=== PATIENT | male | born 1975 | race Caucasian/White ===

== ENCOUNTER 2017-11-06 10:01 | Inpatient (IN) | payer MEDICAID ==
[~2017-11-06] VITALS: Ht 177.8 cm; Wt 79.8 kg
[~2017-11-06 10:01] MED LIST: MIRT15TA2 PO; PARO20TA24 PO; RISP4TAB3 PO; TRIH5TAB2 PO
[2017-11-06 10:16] VITALS: BP 145/60
[2017-11-06 13:54] VITALS: BP 128/62
[2017-11-06] MEDS: LORazepam 2 MG TABLET PO PRN (14:48)
[2017-11-06] MEDS ORDERED: ACETAMINOPHEN 325 MG TABLET PO PRN (15:15)
[2017-11-06] MEDS ORDERED: MAGNESIUM HYDROXIDE SUSPENSION 30 ML UDCUP PO PRN (15:15)
[2017-11-06] MEDS ORDERED: MAG HYDROX/AL HYDROX/SIMETH 30 ML SUSP UDCUP PO PRN (15:15)
[2017-11-06 16:05] VITALS: BP 118/73
[2017-11-07 00:20] VITALS: BP 125/65
[2017-11-07] MEDS: ZOLPIDEM TARTRATE 10 MG TABLET PO PRN (00:21)
[2017-11-07 08:07] VITALS: BP 110/74
[2017-11-07 08:41] LABS: BASOPHILS % (AUTO) 0.3 % (0.0-2.0); EOSINOPHILS % (AUTO) 0.6 % (1.0-6.0); HEMATOCRIT 44.1 % (41-53); HEMOGLOBIN 15.5 g/dL (13.5-17.5); LYMPHOCYTES # (AUTO) 1.5 K/uL (1.0-4.8); LYMPHOCYTES % (AUTO) 14.3 % (22.0-44.0); MEAN CORPUSCULAR HEMOGLOBIN 31.4 pg (26.0-34.0); MEAN CORPUSCULAR VOLUME 90 fL (80-100); MONOCYTES # (AUTO) 0.4 K/uL (0.1-1.0); MONOCYTES % (AUTO) 3.5 % (2.0-9.0); NEUTROPHILS # (AUTO) 8.7 K/uL (1.8-7.7); NEUTROPHILS % (AUTO) 81.3 % (40.0-70.0); PLATELET COUNT (AUTO) 217 K/uL (150-450); RED BLOOD CELL COUNT(AUTO) 4.93 MIL/uL (4.50-5.90); RED CELL DISTRIBUTION WIDTH 14.1 % (11.5-14.5)
[2017-11-07 08:53] LABS: HEMOGLOBIN A1C 5.6 % (4.5-6.2)
[2017-11-07] MEDS ORDERED: VENLAFAXINE HCL 75 MG ER CAPSULE PO SCH (09:00)
[2017-11-07 09:16] LABS: ALANINE AMINOTRANSFERASE 32 U/L (12-78); ALKALINE PHOSPHATASE 67 U/L (46-116); ANION GAP 6 mmol/L (8-16); ASPARTATE AMINOTRANSFERASE 19 U/L (15-37); BILIRUBIN,TOTAL 0.5 mg/dL (0.1-1.0); CALCIUM, TOTAL 9.3 mg/dL (8.8-10.5); CARBON DIOXIDE 31 mmol/L (22-29); CHLORIDE 102 mmol/L (98-107); CHOL/HDL RATIO 4.6 (4.2-7.3); CHOLESTEROL 228 mg/dL (131-200); CREATININE 0.98 mg/dL (0.60-1.30); FREE T4 (FREE THYROXINE) 0.84 ng/dL (0.76-1.46); GLOMERULAR FILTR. RATE CALC > 60 mL/min (>60); GLUCOSE,RANDOM 111 mg/dL (70-110); HDL CHOLESTEROL 50 mg/dL (40-60); LDL CHOL (CALC.) 150 mg/dL (0-130); POTASSIUM 3.7 mmol/L (3.5-5.1); SODIUM SERUM 139 mmol/L (136-145); THYROID STIMULATING HORMONE 1.39 uIU/mL (0.36-3.74); TOTAL PROTEIN, SERUM 7.7 g/dL (6.4-8.2); TRIGLYCERIDES 138 mg/dL (15-150); UREA NITROGEN, BLOOD 14 mg/dL (7-18)
[2017-11-07] MEDS ORDERED: ONDANSETRON HCL 4 MG TABLET PO PRN (10:15)
[2017-11-07] MEDS ORDERED: ACETAMINOPHEN 325 MG TABLET PO PRN (10:15)
[2017-11-07] MEDS ORDERED: LOPERAMIDE HCL 2 MG CAPSULE PO PRN (10:15)
[2017-11-07] MEDS ORDERED: MAGNESIUM HYDROXIDE SUSPENSION 30 ML UDCUP PO PRN (10:15)
[2017-11-07] MEDS ORDERED: ALBUTEROL SULFATE HFA 90 MCG/PUFF 8 GM INHALER IH PRN (10:15)
[2017-11-07] MEDS ORDERED: PETROLATUM,WHITE 71 GM JELLY TP PRN (10:15)
[2017-11-07] MEDS ORDERED: IBUPROFEN 400 MG TABLET PO PRN (10:15)
[2017-11-07] MEDS ORDERED: CloNIDine HCL 0.1 MG TABLET PO PRN (10:15)
[2017-11-07] MEDS ORDERED: MAG HYDROX/AL HYDROX/SIMETH ES 30 ML SUSPENSION UDCUP PO PRN (10:15)
[2017-11-07] MEDS ORDERED: DOCUSATE SODIUM 100 MG CAPSULE PO PRN (10:15)
[2017-11-07] MEDS: MULTIVITAMINS, THERAPEUTIC TABLET PO SCH (12:14)
[2017-11-07 16:16] VITALS: BP 112/78
[2017-11-07] MEDS: LORazepam 2 MG TABLET PO PRN (16:16)
[2017-11-08 05:36] VITALS: BP 120/77
[2017-11-08 08:07] LABS: BASOPHILS % (AUTO) 0.6 % (0.0-2.0); EOSINOPHILS % (AUTO) 1.3 % (1.0-6.0); HEMATOCRIT 41.6 % (41-53); HEMOGLOBIN 14.6 g/dL (13.5-17.5); LYMPHOCYTES # (AUTO) 1.1 K/uL (1.0-4.8); MEAN CORPUSCULAR HEMOGLOBIN 31.5 pg (26.0-34.0); MEAN CORPUSCULAR HGB CONC 35.1 G/dL (31.0-37.0); MEAN CORPUSCULAR VOLUME 90 fL (80-100); MONOCYTES # (AUTO) 0.7 K/uL (0.1-1.0); MONOCYTES % (AUTO) 9.8 % (2.0-9.0); NEUTROPHILS # (AUTO) 5.4 K/uL (1.8-7.7); NEUTROPHILS % (AUTO) 73.3 % (40.0-70.0); PLATELET COUNT (AUTO) 188 K/uL (150-450); RED BLOOD CELL COUNT(AUTO) 4.64 MIL/uL (4.50-5.90); RED CELL DISTRIBUTION WIDTH 13.9 % (11.5-14.5)
[2017-11-08] MEDS: MULTIVITAMINS, THERAPEUTIC TABLET PO SCH (08:27)
[2017-11-08] MEDS: VENLAFAXINE HCL 150 MG ER CAPSULE PO SCH (08:27)
[2017-11-08] MEDS: NICOTINE 14 MG/24 HOUR PATCH TD SCH ×2 (08:27→14:10)
[2017-11-08 08:29] LABS: HEMOGLOBIN A1C 5.9 % (4.5-6.2)
[2017-11-08 08:37] LABS: ALANINE AMINOTRANSFERASE 29 U/L (12-78); ALBUMIN 3.7 g/dL (3.4-5.0); ALKALINE PHOSPHATASE 65 U/L (46-116); ANION GAP 8 mmol/L (8-16); ASPARTATE AMINOTRANSFERASE 16 U/L (15-37); BILIRUBIN,TOTAL 0.5 mg/dL (0.1-1.0); CALCIUM, TOTAL 8.9 mg/dL (8.8-10.5); CARBON DIOXIDE 27 mmol/L (22-29); CHLORIDE 101 mmol/L (98-107); CHOL/HDL RATIO 4.4 (4.2-7.3); CHOLESTEROL 199 mg/dL (131-200); CREATININE 0.98 mg/dL (0.60-1.30); GLOMERULAR FILTR. RATE CALC > 60 mL/min (>60); GLUCOSE,RANDOM 92 mg/dL (70-110); HDL CHOLESTEROL 45 mg/dL (40-60); LDL CHOL (CALC.) 132 mg/dL (0-130); POTASSIUM 3.7 mmol/L (3.5-5.1); SODIUM SERUM 136 mmol/L (136-145); TOTAL PROTEIN, SERUM 7.1 g/dL (6.4-8.2); TRIGLYCERIDES 109 mg/dL (15-150); UREA NITROGEN, BLOOD 16 mg/dL (7-18)
[2017-11-08] MEDS: LORazepam 2 MG TABLET PO PRN ×2 (08:43→18:08)
[2017-11-08 08:45] VITALS: BP 122/78
[2017-11-08 16:06] VITALS: BP 121/74
[2017-11-09 06:02] VITALS: BP 115/66
[2017-11-09] MEDS: MULTIVITAMINS, THERAPEUTIC TABLET PO SCH (08:34)
[2017-11-09] MEDS: VENLAFAXINE HCL 150 MG ER CAPSULE PO SCH (08:34)
[2017-11-09] MEDS: NICOTINE 14 MG/24 HOUR PATCH TD SCH (08:35)
[2017-11-09 08:45] VITALS: BP 123/80
[2017-11-09 16:03] VITALS: BP 116/72
[2017-11-09] MEDS: LORazepam 2 MG TABLET PO PRN (16:10)
[2017-11-09] MEDS: ZOLPIDEM TARTRATE 10 MG TABLET PO PRN (22:04)
[2017-11-10 03:51] VITALS: BP 121/65
[2017-11-10] MEDS: NICOTINE 14 MG/24 HOUR PATCH TD SCH (09:00)
[2017-11-10] MEDS ORDERED: BuPROPion HCL 75 MG TABLET PO SCH (09:00)
[2017-11-10] MEDS ORDERED: BuPROPion HCL XL 150 MG ER TABLET PO SCH (09:00)
[2017-11-10 09:11] VITALS: BP 119/68
[2017-11-10] MEDS: MULTIVITAMINS, THERAPEUTIC TABLET PO SCH (09:12)
[2017-11-10] MEDS: VENLAFAXINE HCL 150 MG ER CAPSULE PO SCH (09:12)
[2017-11-10] MEDS: LORazepam 2 MG TABLET PO PRN (14:03)
[2017-11-10 16:31] VITALS: BP 115/76
[2017-11-11] MEDS: ZOLPIDEM TARTRATE 10 MG TABLET PO PRN (00:17)
[2017-11-11 01:09] VITALS: BP 121/79
[2017-11-11 08:07] VITALS: BP 123/76
[2017-11-11] MEDS: MULTIVITAMINS, THERAPEUTIC TABLET PO SCH (08:44)
[2017-11-11] MEDS: BuPROPion HCL XL 150 MG ER TABLET PO SCH (08:44)
[2017-11-11] MEDS: VENLAFAXINE HCL 150 MG ER CAPSULE PO SCH (08:44)
[2017-11-11] MEDS: NICOTINE 14 MG/24 HOUR PATCH TD SCH (08:48)
[2017-11-11] MEDS: LORazepam 2 MG TABLET PO PRN (15:52)
[2017-11-11 16:04] VITALS: BP 120/78
[2017-11-12 06:25] VITALS: BP 117/84
[2017-11-12 08:16] VITALS: BP 124/72
[2017-11-12] MEDS: NICOTINE 14 MG/24 HOUR PATCH TD SCH (09:00)
[2017-11-12] MEDS: MULTIVITAMINS, THERAPEUTIC TABLET PO SCH (09:21)
[2017-11-12] MEDS: VENLAFAXINE HCL 75 MG ER CAPSULE PO SCH (09:21)
[2017-11-12] MEDS: BuPROPion HCL XL 150 MG ER TABLET PO SCH (09:22)
[2017-11-12 16:35] VITALS: BP 117/73
[2017-11-12] MEDS: LORazepam 2 MG TABLET PO PRN (16:59)
[2017-11-13 05:39] VITALS: BP 121/95
[2017-11-13 08:30] VITALS: BP 120/78
[2017-11-13] MEDS ORDERED: VENL-67 PO (08:38)
[2017-11-13] MEDS ORDERED: BUPR-93 PO (08:39)
[2017-11-13] MEDS: VENLAFAXINE HCL 75 MG ER CAPSULE PO SCH (08:57)
[2017-11-13] MEDS: BuPROPion HCL XL 150 MG ER TABLET PO SCH (08:57)
[2017-11-13] MEDS: MULTIVITAMINS, THERAPEUTIC TABLET PO SCH (08:57)
[2017-11-13] MEDS: NICOTINE 14 MG/24 HOUR PATCH TD SCH (08:58)
== END 2017-11-13 10:48 | disposition home or self-care (01) | DRG 751 ==
LOC: B2S 10:57
PROVIDERS: ADMIT Psychiatry & Neurology Psychiatry; ATTEND Psychiatry & Neurology Psychiatry
DX: F33.2 Major depressive disorder, recurrent severe without psychotic features (principal); F20.9 Schizophrenia, unspecified; R45.851 Suicidal ideations; F10.10 Alcohol abuse, uncomplicated; B19.20 Unspecified viral hepatitis C without hepatic coma; E78.5 Hyperlipidemia, unspecified; Z91.19 Patient's noncompliance with other medical treatment and regimen; Z91.5 Personal history of self-harm
CPT/HCPCS: 80074; 83036; 84439; 84443; 86804

== ENCOUNTER 2019-06-01 16:09 | Inpatient (IN) | payer MEDICARE, MEDICAID ==
[~2019-06-01] VITALS: Ht 177.8 cm; Wt 83.9 kg
[~2019-06-01 16:09] MED LIST changes: +BUPR-93 PO; -MIRT15TA2 PO; -PARO20TA24 PO; -RISP4TAB3 PO; -TRIH5TAB2 PO; +VENL-67 PO
[2019-06-01] MEDS ORDERED: TRAZ-252 PO (16:13)
[2019-06-01] MEDS ORDERED: LOPERAMIDE HCL 2 MG CAPSULE PO PRN (16:30)
[2019-06-01] MEDS ORDERED: MAGNESIUM HYDROXIDE SUSPENSION 30 ML UDCUP PO PRN (16:30)
[2019-06-01] MEDS ORDERED: TUBERCULIN, PURIFIED PROTEIN DERIVATIVE 5 TU/0.1 ML SYRINGE ID ONE (16:30)
[2019-06-01] MEDS ORDERED: ZOLPIDEM TARTRATE 10 MG TABLET PO PRN (16:30)
[2019-06-01] MEDS ORDERED: LURASIDONE HCL 40 MG TABLET PO PRN (16:30)
[2019-06-01] MEDS ORDERED: HydrOXYzine PAMOATE 50 MG CAPSULE PO PRN (16:30)
[2019-06-01] MEDS ORDERED: PROMETHAZINE HCL 25 MG TABLET PO PRN (16:30)
[2019-06-01] MEDS ORDERED: INFLUENZA VIRUS VACCINE QVS 2019-20 (3YR+)/PF 60 MCG/0.5 ML SYRINGE IM ONE (16:45)
[2019-06-01 16:52] VITALS: BP 123/68
[2019-06-01] MEDS ORDERED: PNEUMOCOCCAL VACCINE POLYVALENT 0.5 ML VIAL [PPSV23] IM ONE (18:15)
[2019-06-01] MEDS: THIAMINE HCL 100 MG TABLET PO SCH (18:55)
[2019-06-01 19:56] VITALS: BP 96/70
[2019-06-01] MEDS ORDERED: TraZODone HCL 50 MG TABLET PO SCH (21:00)
[2019-06-01] MEDS ORDERED: MIRTAZAPINE 15 MG TABLET PO SCH (21:00)
[2019-06-01] MEDS: LURASIDONE HCL 40 MG TABLET PO SCH (21:34)
[2019-06-02 07:58] LABS: BASOPHILS % (AUTO) 0.6 % (0.0-2.0); EOSINOPHILS % (AUTO) 3.9 % (1.0-6.0); HEMATOCRIT 38.7 % (41-53); HEMOGLOBIN 13.2 g/dL (13.5-17.5); LYMPHOCYTES # (AUTO) 2.1 K/uL (1.0-4.8); LYMPHOCYTES % (AUTO) 30.8 % (22.0-44.0); MEAN CORPUSCULAR HEMOGLOBIN 30.4 pg (26.0-34.0); MEAN CORPUSCULAR HGB CONC 34.2 G/dL (31.0-37.0); MEAN CORPUSCULAR VOLUME 89 fL (80-100); MONOCYTES # (AUTO) 0.6 K/uL (0.1-1.0); MONOCYTES % (AUTO) 8.6 % (2.0-9.0); NEUTROPHILS # (AUTO) 3.8 K/uL (1.8-7.7); NEUTROPHILS % (AUTO) 56.1 % (40.0-70.0); PLATELET COUNT (AUTO) 189 K/uL (150-450); RED BLOOD CELL COUNT(AUTO) 4.35 MIL/uL (4.50-5.90); RED CELL DISTRIBUTION WIDTH 14.3 % (11.5-14.5)
[2019-06-02 08:25] VITALS: BP 116/63
[2019-06-02] MEDS: MULTIVITAMINS WITH MINERALS, THERAPEUTIC TABLET PO SCH (08:36)
[2019-06-02] MEDS: FOLIC ACID 1 MG TABLET PO SCH (08:36)
[2019-06-02] MEDS: THIAMINE HCL 100 MG TABLET PO SCH ×2 (08:36→16:38)
[2019-06-02 08:58] LABS: ALANINE AMINOTRANSFERASE 27 U/L (12-78); ALBUMIN 3.8 g/dL (3.4-5.0); ALKALINE PHOSPHATASE 81 U/L (46-116); ANION GAP 6 mmol/L (8-16); ASPARTATE AMINOTRANSFERASE 19 U/L (15-37); BILIRUBIN,TOTAL 0.3 mg/dL (0.1-1.0); CALCIUM, TOTAL 9.1 mg/dL (8.8-10.5); CARBON DIOXIDE 30 mmol/L (22-29); CHLORIDE 108 mmol/L (98-107); CHOL/HDL RATIO 5.5 (4.2-7.3); CHOLESTEROL 171 mg/dL (131-200); CREATININE 1.11 mg/dL (0.60-1.30); FREE T4 (FREE THYROXINE) 0.78 ng/dL (0.76-1.46); GLOMERULAR FILTR. RATE CALC > 60 mL/min (>60); GLUCOSE,RANDOM 85 mg/dL (70-110); HDL CHOLESTEROL 31 mg/dL (40-60); LDL CHOL (CALC.) 119 mg/dL (0-130); POTASSIUM 4.1 mmol/L (3.5-5.1); SODIUM SERUM 144 mmol/L (136-145); THYROID STIMULATING HORMONE 1.81 uIU/mL (0.36-3.74); TRIGLYCERIDES 107 mg/dL (15-150); UREA NITROGEN, BLOOD 10 mg/dL (7-18)
[2019-06-02] MEDS ORDERED: PETROLATUM,WHITE 28 GM JELLY TP PRN (09:45)
[2019-06-02 16:15] VITALS: BP 114/64
[2019-06-02] MEDS: MIRTAZAPINE 30 MG TABLET PO SCH (20:36)
[2019-06-02] MEDS: LURASIDONE HCL 40 MG TABLET PO SCH (20:37)
[2019-06-02] MEDS ORDERED: TraZODone HCL 100 MG TABLET PO SCH (21:00)
[2019-06-03 01:33] VITALS: BP 92/51
[2019-06-03 08:24] VITALS: BP 107/64
[2019-06-03] MEDS: THIAMINE HCL 100 MG TABLET PO SCH ×2 (08:33→16:53)
[2019-06-03] MEDS: MULTIVITAMINS WITH MINERALS, THERAPEUTIC TABLET PO SCH (08:33)
[2019-06-03] MEDS: FOLIC ACID 1 MG TABLET PO SCH (08:33)
[2019-06-03 16:10] VITALS: BP 112/78
[2019-06-03] MEDS: TraZODone HCL 100 MG TABLET PO SCH (20:44)
[2019-06-03] MEDS: MIRTAZAPINE 30 MG TABLET PO SCH (20:44)
[2019-06-03] MEDS: LURASIDONE HCL 40 MG TABLET PO SCH (20:44)
[2019-06-04 05:19] VITALS: BP 100/60
[2019-06-04 08:16] VITALS: BP 105/65
[2019-06-04] MEDS: MULTIVITAMINS WITH MINERALS, THERAPEUTIC TABLET PO SCH (08:41)
[2019-06-04] MEDS: FOLIC ACID 1 MG TABLET PO SCH (08:41)
[2019-06-04] MEDS: THIAMINE HCL 100 MG TABLET PO SCH ×2 (08:41→16:18)
[2019-06-04 16:13] VITALS: BP 117/71
[2019-06-04] MEDS: TraZODone HCL 100 MG TABLET PO SCH (20:02)
[2019-06-04] MEDS: LURASIDONE HCL 40 MG TABLET PO SCH (20:02)
[2019-06-04] MEDS: MIRTAZAPINE 30 MG TABLET PO SCH (20:02)
[2019-06-05] MEDS: MAG HYDROX/AL HYDROX/SIMETH ES 30 ML SUSPENSION UDCUP PO PRN (06:18)
[2019-06-05 06:19] VITALS: BP 111/72
[2019-06-05 08:23] VITALS: BP 100/63
[2019-06-05] MEDS: THIAMINE HCL 100 MG TABLET PO SCH ×2 (08:28→16:42)
[2019-06-05] MEDS: FOLIC ACID 1 MG TABLET PO SCH (08:28)
[2019-06-05] MEDS: MULTIVITAMINS WITH MINERALS, THERAPEUTIC TABLET PO SCH (08:28)
[2019-06-05] MEDS: GuaiFENesin/D-METHORPHAN [SUGAR-FREE] 200-20MG/10 ML SYRUP UDCUP PO PRN ×2 (09:44→20:15)
[2019-06-05 16:45] VITALS: BP 117/64
[2019-06-05] MEDS: TraZODone HCL 100 MG TABLET PO SCH (20:29)
[2019-06-05] MEDS: MIRTAZAPINE 30 MG TABLET PO SCH (20:29)
[2019-06-05] MEDS: LURASIDONE HCL 40 MG TABLET PO SCH (20:30)
[2019-06-06 00:30] VITALS: BP 101/41
[2019-06-06 00:57] VITALS: BP 101/70
[2019-06-06] MEDS: ACETAMINOPHEN 325 MG TABLET PO PRN ×3 (01:01→15:12)
[2019-06-06 08:16] VITALS: BP 119/66
[2019-06-06] MEDS: MULTIVITAMINS WITH MINERALS, THERAPEUTIC TABLET PO SCH (09:03)
[2019-06-06] MEDS: THIAMINE HCL 100 MG TABLET PO SCH ×2 (09:03→21:19)
[2019-06-06] MEDS: FOLIC ACID 1 MG TABLET PO SCH (09:03)
[2019-06-06] MEDS: GuaiFENesin/D-METHORPHAN [SUGAR-FREE] 200-20MG/10 ML SYRUP UDCUP PO PRN (13:22)
[2019-06-06 15:30] VITALS: BP 128/75
[2019-06-06 20:06] VITALS: BP 115/72
[2019-06-06] MEDS: GuaiFENesin SR 600 MG ER TABLET PO SCH (21:10)
[2019-06-06] MEDS: TraZODone HCL 100 MG TABLET PO SCH (21:10)
[2019-06-06] MEDS: LURASIDONE HCL 40 MG TABLET PO SCH (21:11)
[2019-06-06] MEDS: MIRTAZAPINE 30 MG TABLET PO SCH (21:12)
[2019-06-07 08:15] LABS: AMPHET/METH SCREEN,URINE NEGATIVE (NEGATIVE); BARBITURATE SCREEN, URINE NEGATIVE (NEGATIVE); BENZODIAZEPINES SCREEN,URINE NEGATIVE (NEGATIVE); CANNABINOID SCREEN,URINE NEGATIVE (NEGATIVE); COCAINE SCREEN,URINE NEGATIVE (NEGATIVE); METHADONE SCREEN, URINE NEGATIVE (NEGATIVE); OPIATE SCREEN,URINE NEGATIVE (NEGATIVE)
[2019-06-07 08:16] LABS: PHENCYCLIDINE SCREEN,URINE NEGATIVE (NEGATIVE)
[2019-06-07 08:19] LABS: APPEARANCE,URINE CLEAR (CLEAR); BILIRUBIN,URINE NEGATIVE (NEGATIVE); GLUCOSE, URINE (UA) NEGATIVE (NEGATIVE); KETONES,URINE NEGATIVE (NEGATIVE); LEUKOCYTE ESTERASE ,URINE NEGATIVE (NEGATIVE); NITRATE,URINE NEGATIVE (NEGATIVE); OCCULT BLOOD,URINE NEGATIVE (NEGATIVE); PROTEIN,URINE NEGATIVE (NEGATIVE); UROBILINOGEN,URINE 0.2 mg/dL (<=1.0)
[2019-06-07] MEDS: THIAMINE HCL 100 MG TABLET PO SCH ×2 (08:38→16:06)
[2019-06-07] MEDS: GuaiFENesin SR 600 MG ER TABLET PO SCH ×3 (08:38→16:06)
[2019-06-07] MEDS: OSELTAMIVIR PHOSPHATE 75 MG CAPSULE PO SCH ×2 (08:38→16:06)
[2019-06-07] MEDS: FOLIC ACID 1 MG TABLET PO SCH (08:38)
[2019-06-07] MEDS: MULTIVITAMINS WITH MINERALS, THERAPEUTIC TABLET PO SCH (08:39)
[2019-06-07 09:23] VITALS: BP 112/62
[2019-06-07 17:47] VITALS: BP 106/62
[2019-06-07] MEDS: TraZODone HCL 100 MG TABLET PO SCH (20:33)
[2019-06-07] MEDS ORDERED: LURASIDONE HCL 40 MG TABLET PO SCH (21:00)
[2019-06-07] MEDS ORDERED: MIRTAZAPINE 30 MG TABLET PO SCH (21:00)
[2019-06-08] MEDS: FOLIC ACID 1 MG TABLET PO SCH (08:51)
[2019-06-08] MEDS: THIAMINE HCL 100 MG TABLET PO SCH ×2 (08:52→17:20)
[2019-06-08] MEDS: MULTIVITAMINS WITH MINERALS, THERAPEUTIC TABLET PO SCH (08:52)
[2019-06-08] MEDS: OSELTAMIVIR PHOSPHATE 75 MG CAPSULE PO SCH ×2 (08:52→17:20)
[2019-06-08] MEDS: GuaiFENesin SR 600 MG ER TABLET PO SCH ×3 (08:52→17:20)
[2019-06-08 09:21] VITALS: BP 144/88
[2019-06-08 17:00] VITALS: BP 103/64
[2019-06-08] MEDS: TraZODone HCL 100 MG TABLET PO SCH (20:57)
[2019-06-08] MEDS ORDERED: LURASIDONE HCL 40 MG TABLET PO SCH (21:00)
[2019-06-08] MEDS: MIRTAZAPINE 15 MG TABLET PO SCH (21:06)
[2019-06-09] MEDS: LORazepam 2 MG TABLET PO PRN (00:19)
[2019-06-09 01:16] VITALS: BP 108/70
[2019-06-09] MEDS: MULTIVITAMINS WITH MINERALS, THERAPEUTIC TABLET PO SCH (08:04)
[2019-06-09] MEDS: GuaiFENesin SR 600 MG ER TABLET PO SCH ×3 (08:04→16:50)
[2019-06-09] MEDS: THIAMINE HCL 100 MG TABLET PO SCH ×2 (08:04→16:50)
[2019-06-09] MEDS: FOLIC ACID 1 MG TABLET PO SCH (08:04)
[2019-06-09] MEDS: OSELTAMIVIR PHOSPHATE 75 MG CAPSULE PO SCH ×2 (08:04→16:50)
[2019-06-09 10:04] VITALS: BP 119/61
[2019-06-09 16:58] VITALS: BP 105/65
[2019-06-09] MEDS: TraZODone HCL 100 MG TABLET PO SCH (20:43)
[2019-06-09] MEDS: MIRTAZAPINE 15 MG TABLET PO SCH (20:44)
[2019-06-09] MEDS ORDERED: LURASIDONE HCL 40 MG TABLET PO SCH (21:00)
[2019-06-10] MEDS: MULTIVITAMINS WITH MINERALS, THERAPEUTIC TABLET PO SCH (08:35)
[2019-06-10] MEDS: FOLIC ACID 1 MG TABLET PO SCH (08:35)
[2019-06-10] MEDS: THIAMINE HCL 100 MG TABLET PO SCH ×2 (08:35→16:34)
[2019-06-10] MEDS: OSELTAMIVIR PHOSPHATE 75 MG CAPSULE PO SCH ×2 (08:35→16:34)
[2019-06-10 08:39] VITALS: BP 117/71
[2019-06-10 19:11] VITALS: BP 112/65
[2019-06-10] MEDS: MIRTAZAPINE 15 MG TABLET PO SCH (20:47)
[2019-06-10] MEDS: TraZODone HCL 100 MG TABLET PO SCH (20:47)
[2019-06-11] MEDS: MULTIVITAMINS WITH MINERALS, THERAPEUTIC TABLET PO SCH (08:47)
[2019-06-11] MEDS: FOLIC ACID 1 MG TABLET PO SCH (08:49)
[2019-06-11] MEDS: LURASIDONE HCL 40 MG TABLET PO SCH (08:49)
[2019-06-11] MEDS: OSELTAMIVIR PHOSPHATE 75 MG CAPSULE PO SCH ×2 (08:50→16:39)
[2019-06-11] MEDS: THIAMINE HCL 100 MG TABLET PO SCH (08:51)
[2019-06-11 09:55] VITALS: BP 117/72
[2019-06-11 17:22] VITALS: BP 106/69
[2019-06-11] MEDS: TraZODone HCL 100 MG TABLET PO SCH (20:19)
[2019-06-11] MEDS: MIRTAZAPINE 15 MG TABLET PO SCH (20:19)
[2019-06-12] MEDS: MULTIVITAMINS WITH MINERALS, THERAPEUTIC TABLET PO SCH (07:57)
[2019-06-12] MEDS: LURASIDONE HCL 40 MG TABLET PO SCH (07:58)
[2019-06-12 09:25] VITALS: BP 106/60
[2019-06-12 17:33] VITALS: BP 100/60
[2019-06-12] MEDS: TraZODone HCL 100 MG TABLET PO SCH (20:07)
[2019-06-12] MEDS: MIRTAZAPINE 15 MG TABLET PO SCH (20:08)
[2019-06-13] MEDS: LURASIDONE HCL 40 MG TABLET PO SCH (09:03)
[2019-06-13] MEDS: MULTIVITAMINS WITH MINERALS, THERAPEUTIC TABLET PO SCH (09:03)
[2019-06-13 11:24] VITALS: BP 110/65
[2019-06-13] MEDS: LORazepam 2 MG TABLET PO PRN (11:42)
[2019-06-13 18:17] VITALS: BP 110/71
[2019-06-13] MEDS: MIRTAZAPINE 15 MG TABLET PO SCH (20:28)
[2019-06-13] MEDS ORDERED: TraZODone HCL 150 MG TABLET PO SCH (21:00)
[2019-06-14] MEDS: MULTIVITAMINS WITH MINERALS, THERAPEUTIC TABLET PO SCH (08:19)
[2019-06-14 09:16] VITALS: BP 111/60
[2019-06-14] MEDS: MAG HYDROX/AL HYDROX/SIMETH ES 30 ML SUSPENSION UDCUP PO PRN (19:08)
[2019-06-14] MEDS: MIRTAZAPINE 15 MG TABLET PO SCH (20:18)
[2019-06-14] MEDS: TraZODone HCL 100 MG TABLET PO SCH (20:18)
[2019-06-14 21:54] VITALS: BP 98/59
[2019-06-15] MEDS: MULTIVITAMINS WITH MINERALS, THERAPEUTIC TABLET PO SCH (08:36)
[2019-06-15 09:14] VITALS: BP 106/58
[2019-06-15 16:52] VITALS: BP 132/70
[2019-06-15] MEDS: MIRTAZAPINE 15 MG TABLET PO SCH (20:12)
[2019-06-15] MEDS: TraZODone HCL 100 MG TABLET PO SCH (20:13)
[2019-06-16 08:00] VITALS: BP 122/64
[2019-06-16] MEDS: MULTIVITAMINS WITH MINERALS, THERAPEUTIC TABLET PO SCH (09:30)
[2019-06-16] MEDS: TraZODone HCL 100 MG TABLET PO SCH (20:12)
[2019-06-16] MEDS: MIRTAZAPINE 15 MG TABLET PO SCH (20:12)
[2019-06-16 20:43] VITALS: BP 113/68
[2019-06-17 08:23] VITALS: BP 105/67
[2019-06-17] MEDS: MULTIVITAMINS WITH MINERALS, THERAPEUTIC TABLET PO SCH (09:08)
[2019-06-17 16:58] VITALS: BP 107/60
[2019-06-17] MEDS: TraZODone HCL 100 MG TABLET PO SCH (20:13)
[2019-06-17] MEDS: MIRTAZAPINE 15 MG TABLET PO SCH (20:13)
[2019-06-18] MEDS: MULTIVITAMINS WITH MINERALS, THERAPEUTIC TABLET PO SCH (08:24)
[2019-06-18 09:56] VITALS: BP 121/74
[2019-06-18] MEDS: TraZODone HCL 100 MG TABLET PO SCH (20:18)
[2019-06-18] MEDS: MIRTAZAPINE 15 MG TABLET PO SCH (20:18)
[2019-06-18 20:29] VITALS: BP 104/62
[2019-06-19] MEDS: MULTIVITAMINS WITH MINERALS, THERAPEUTIC TABLET PO SCH (08:19)
[2019-06-19 10:46] VITALS: BP 118/69
[2019-06-19] MEDS: TraZODone HCL 100 MG TABLET PO SCH (20:16)
[2019-06-19] MEDS: MIRTAZAPINE 15 MG TABLET PO SCH (20:16)
[2019-06-19 20:55] VITALS: BP 103/70
[2019-06-20] MEDS: MULTIVITAMINS WITH MINERALS, THERAPEUTIC TABLET PO SCH (08:21)
[2019-06-20 11:21] VITALS: BP 120/66
[2019-06-20 17:33] VITALS: BP 98/57
[2019-06-20] MEDS: TraZODone HCL 100 MG TABLET PO SCH (20:09)
[2019-06-20] MEDS: MIRTAZAPINE 15 MG TABLET PO SCH (20:10)
[2019-06-21 07:03] VITALS: BP 112/61
[2019-06-21] MEDS: MULTIVITAMINS WITH MINERALS, THERAPEUTIC TABLET PO SCH (08:04)
[2019-06-21 14:11] VITALS: BP 105/74
[2019-06-21 18:26] VITALS: BP 115/74
[2019-06-21] MEDS: MIRTAZAPINE 15 MG TABLET PO SCH (20:16)
[2019-06-21] MEDS: TraZODone HCL 100 MG TABLET PO SCH (20:16)
[2019-06-22] MEDS: MULTIVITAMINS WITH MINERALS, THERAPEUTIC TABLET PO SCH (08:29)
[2019-06-22 10:10] VITALS: BP 109/64
[2019-06-22 17:13] VITALS: BP 105/63
[2019-06-22] MEDS: TraZODone HCL 100 MG TABLET PO SCH (20:33)
[2019-06-22] MEDS: MIRTAZAPINE 15 MG TABLET PO SCH (20:33)
[2019-06-23 08:00] VITALS: BP 122/54
[2019-06-23] MEDS: MULTIVITAMINS WITH MINERALS, THERAPEUTIC TABLET PO SCH (08:39)
[2019-06-23] MEDS ORDERED: TRAZ-257 PO (17:04)
[2019-06-23] MEDS ORDERED: MIRT15TA6 PO (17:04)
[2019-06-23] MEDS ORDERED: NALT50TA6 PO (17:05)
[2019-06-23 17:15] VITALS: BP 101/60
[2019-06-23] MEDS: TraZODone HCL 100 MG TABLET PO SCH (20:03)
[2019-06-23] MEDS: MIRTAZAPINE 15 MG TABLET PO SCH (20:03)
[2019-06-24 08:00] VITALS: BP 130/80
[2019-06-24] MEDS: MULTIVITAMINS WITH MINERALS, THERAPEUTIC TABLET PO SCH (08:21)
[2019-06-24 17:00] VITALS: BP 111/69
== END 2019-06-24 16:50 | disposition home or self-care (01) | DRG 885 ==
LOC: B2X 16:47 → 3EX 06-06 18:55
PROVIDERS: ADMIT Psychiatry & Neurology Psychiatry; ATTEND Psychiatry & Neurology Psychiatry
DX: F25.0 Schizoaffective disorder, bipolar type (principal); B18.2 Chronic viral hepatitis C; F33.2 Major depressive disorder, recurrent severe without psychotic features; R45.851 Suicidal ideations; K21.9 Gastro-esophageal reflux disease without esophagitis; F10.10 Alcohol abuse, uncomplicated; K59.00 Constipation, unspecified; F41.9 Anxiety disorder, unspecified; G47.00 Insomnia, unspecified; D64.9 Anemia, unspecified; J11.1 Influenza due to unidentified influenza virus with other respiratory manifestations; Z79.899 Other long term (current) drug therapy; Z91.19 Patient's noncompliance with other medical treatment and regimen; Z59.0 Homelessness; Z88.2 Allergy status to sulfonamides; Z88.8 Allergy status to other drugs, medicaments and biological substances
CPT/HCPCS: 80307; 83036; 84439; 84443; 86592; 87081; 90686; 90732; 93005; G0378

== ENCOUNTER 2019-06-06 16:12 | Emergency (ER) | payer MEDICARE ==
[~2019-06-06] VITALS: Ht 172.7 cm; Wt 81.8 kg
[~2019-06-06 16:12] MED LIST changes: +TRAZ-252 PO
[2019-06-06] MEDS ORDERED: ACETAMINOPHEN 500 MG TABLET PO ONE (16:45)
[2019-06-06] MEDS ORDERED: IBUPROFEN 800 MG TABLET PO ONE (16:45)
[2019-06-06 17:17] LABS: INFLUENZA TYPE A POSITIVE FOR TYPE A (NEGATIVE); INFLUENZA TYPE B NEGATIVE FOR TYPE B (NEGATIVE)
[2019-06-06] MEDS ORDERED: OSELTAMIVIR PHOSPHATE 75 MG CAPSULE PO ONE (17:30)
[2019-06-06 17:52] VITALS: BP 106/61
== END 2019-06-06 17:48 | disposition other institution (70) ==
LOC: EMS 16:12
DX: J10.1 Influenza due to other identified influenza virus with other respiratory manifestations (principal); F41.9 Anxiety disorder, unspecified; F32.9 Major depressive disorder, single episode, unspecified; Z79.899 Other long term (current) drug therapy; Z88.8 Allergy status to other drugs, medicaments and biological substances; Z88.2 Allergy status to sulfonamides
CPT/HCPCS: 87804

== ENCOUNTER 2019-09-07 18:05 | Inpatient (IN) | payer MEDICARE, MEDICAID ==
[~2019-09-07] VITALS: Ht 177.8 cm; Wt 84.2 kg
[~2019-09-07 18:05] MED LIST changes: -BUPR-93 PO; +DIVA-76 PO; +HALO10 PO; +MIRT-89 PO; -TRAZ-252 PO; +TRAZ-257 PO; -VENL-67 PO
[2019-09-07 19:26] LABS: BASOPHILS % (AUTO) 0.7 % (0.0-2.0); EOSINOPHILS % (AUTO) 2.2 % (1.0-6.0); HEMATOCRIT 44.7 % (41-53); HEMOGLOBIN 14.7 g/dL (13.5-17.5); LYMPHOCYTES # (AUTO) 2.6 K/uL (1.0-4.8); LYMPHOCYTES % (AUTO) 32.2 % (22.0-44.0); MEAN CORPUSCULAR HEMOGLOBIN 29.5 pg (26.0-34.0); MEAN CORPUSCULAR HGB CONC 32.9 G/dL (31.0-37.0); MEAN CORPUSCULAR VOLUME 90 fL (80-100); MONOCYTES # (AUTO) 0.7 K/uL (0.1-1.0); MONOCYTES % (AUTO) 8.7 % (2.0-9.0); NEUTROPHILS # (AUTO) 4.6 K/uL (1.8-7.7); NEUTROPHILS % (AUTO) 56.2 % (40.0-70.0); PLATELET COUNT (AUTO) 188 K/uL (150-450); RED BLOOD CELL COUNT(AUTO) 4.98 MIL/uL (4.50-5.90); RED CELL DISTRIBUTION WIDTH 13.2 % (11.5-14.5)
[2019-09-07] MEDS ORDERED: HALOPERIDOL 5 MG TABLET PO PRN (19:45)
[2019-09-07 19:46] LABS: ANION GAP 11 mmol/L (8-16); CALCIUM, TOTAL 9.4 mg/dL (8.8-10.5); CARBON DIOXIDE 26 mmol/L (22-29); CHLORIDE 107 mmol/L (98-107); CREATININE 0.93 mg/dL (0.60-1.30); GLOMERULAR FILTR. RATE CALC > 60 mL/min (>60); GLUCOSE,RANDOM 105 mg/dL (70-110); POTASSIUM 4.1 mmol/L (3.5-5.1); SODIUM SERUM 144 mmol/L (136-145); UREA NITROGEN, BLOOD 19 mg/dL (7-18)
[2019-09-07 19:50] LABS: ALANINE AMINOTRANSFERASE 31 U/L (12-78); ALBUMIN 4.2 g/dL (3.4-5.0); ALKALINE PHOSPHATASE 55 U/L (46-116); ASPARTATE AMINOTRANSFERASE 25 U/L (15-37); BILIRUBIN,TOTAL 0.3 mg/dL (0.1-1.0); TOTAL PROTEIN, SERUM 7.7 g/dL (6.4-8.2)
[2019-09-07 22:15] VITALS: BP 140/80
[2019-09-07] MEDS ORDERED: -PHARMACY VACCINE NOTE- MISC ONE (22:45)
[2019-09-07] MEDS: ZOLPIDEM TARTRATE 10 MG TABLET PO PRN (23:39)
[2019-09-08 01:18] VITALS: BP 112/82
[2019-09-08] MEDS: LORazepam 2 MG TABLET PO PRN (01:46)
[2019-09-08 08:00] VITALS: BP 105/75
[2019-09-08] MEDS ORDERED: LOPERAMIDE HCL 2 MG CAPSULE PO PRN (08:45)
[2019-09-08] MEDS ORDERED: BENZOCAINE/MENTHOL LOZENGE MM PRN (08:45)
[2019-09-08] MEDS ORDERED: PETROLATUM,WHITE 28 GM JELLY TP PRN (08:45)
[2019-09-08] MEDS ORDERED: CloNIDine HCL 0.1 MG TABLET PO PRN (08:45)
[2019-09-08] MEDS ORDERED: ALBUTEROL SULFATE HFA 90 MCG/PUFF 8 GM INHALER IH PRN (08:45)
[2019-09-08] MEDS ORDERED: OMEPRAZOLE 20 MG CAPSULE PO PRN (08:45)
[2019-09-08] MEDS ORDERED: ONDANSETRON HCL 4 MG TABLET PO PRN (08:45)
[2019-09-08] MEDS ORDERED: MAGNESIUM HYDROXIDE SUSPENSION 30 ML UDCUP PO PRN (08:45)
[2019-09-08] MEDS ORDERED: ACETAMINOPHEN 325 MG TABLET PO PRN (08:45)
[2019-09-08] MEDS ORDERED: BACITRACIN 28.4 GM OINTMENT TP PRN (08:45)
[2019-09-08] MEDS ORDERED: IBUPROFEN 600 MG TABLET PO PRN (08:45)
[2019-09-08] MEDS ORDERED: DOCUSATE SODIUM 100 MG CAPSULE PO PRN (08:45)
[2019-09-08] MEDS ORDERED: OMEGA-3/DHA/EPA/FISH OIL 1,000 MG CAPSULE PO SCH (09:00)
[2019-09-08 16:05] VITALS: BP 117/71
[2019-09-08] MEDS: DIVALPROEX SODIUM 250 MG ER TABLET PO SCH (16:29)
[2019-09-08] MEDS: SIMVASTATIN 10 MG TABLET PO SCH (21:42)
[2019-09-08] MEDS: MIRTAZAPINE 15 MG TABLET PO SCH (21:43)
[2019-09-08] MEDS: HALOPERIDOL 5 MG TABLET PO SCH (21:43)
[2019-09-08] MEDS: TraZODone HCL 100 MG TABLET PO SCH (21:43)
[2019-09-09] MEDS: DIVALPROEX SODIUM 250 MG ER TABLET PO SCH ×2 (08:09→16:14)
[2019-09-09 09:29] VITALS: BP 112/73
[2019-09-09 17:28] VITALS: BP 130/69
[2019-09-09] MEDS: LORazepam 2 MG TABLET PO PRN (19:19)
[2019-09-09] MEDS: SIMVASTATIN 10 MG TABLET PO SCH (20:24)
[2019-09-09] MEDS: MIRTAZAPINE 15 MG TABLET PO SCH (20:25)
[2019-09-09] MEDS: HALOPERIDOL 5 MG TABLET PO SCH (20:25)
[2019-09-09] MEDS: TraZODone HCL 100 MG TABLET PO SCH (20:25)
[2019-09-10 05:23] VITALS: BP 115/70
[2019-09-10 08:23] VITALS: BP 105/73
[2019-09-10] MEDS: DIVALPROEX SODIUM 250 MG ER TABLET PO SCH ×2 (08:48→16:27)
[2019-09-10 16:00] VITALS: BP 98/73
[2019-09-10] MEDS: LORazepam 2 MG TABLET PO PRN (18:38)
[2019-09-10 19:54] VITALS: BP 120/73
[2019-09-10] MEDS: SIMVASTATIN 10 MG TABLET PO SCH (20:58)
[2019-09-10] MEDS: HALOPERIDOL 5 MG TABLET PO SCH (20:59)
[2019-09-10] MEDS: MIRTAZAPINE 15 MG TABLET PO SCH (20:59)
[2019-09-10] MEDS: TraZODone HCL 100 MG TABLET PO SCH (20:59)
[2019-09-11 00:20] VITALS: BP 115/70
[2019-09-11] MEDS: DIVALPROEX SODIUM 250 MG ER TABLET PO SCH ×2 (08:19→16:44)
[2019-09-11 08:24] VITALS: BP 126/58
[2019-09-11 16:00] VITALS: BP 98/62
[2019-09-11] MEDS: LORazepam 2 MG TABLET PO PRN (18:09)
[2019-09-11] MEDS: MIRTAZAPINE 15 MG TABLET PO SCH (21:12)
[2019-09-11] MEDS: SIMVASTATIN 10 MG TABLET PO SCH (21:12)
[2019-09-11] MEDS: TraZODone HCL 100 MG TABLET PO SCH (21:12)
[2019-09-11] MEDS: HALOPERIDOL 5 MG TABLET PO SCH (21:12)
[2019-09-12 00:17] VITALS: BP 127/81
[2019-09-12] MEDS: DIVALPROEX SODIUM 250 MG ER TABLET PO SCH ×2 (08:06→16:31)
[2019-09-12 08:33] VITALS: BP 123/65
[2019-09-12 16:03] VITALS: BP 114/73
[2019-09-12] MEDS: LORazepam 2 MG TABLET PO PRN (17:58)
[2019-09-12] MEDS: SIMVASTATIN 10 MG TABLET PO SCH (20:35)
[2019-09-12] MEDS: MIRTAZAPINE 15 MG TABLET PO SCH (20:35)
[2019-09-12] MEDS: TraZODone HCL 100 MG TABLET PO SCH (20:35)
[2019-09-12] MEDS: HALOPERIDOL 5 MG TABLET PO SCH (20:35)
[2019-09-13 06:30] VITALS: BP 102/56
[2019-09-13] MEDS: DIVALPROEX SODIUM 250 MG ER TABLET PO SCH ×2 (08:07→16:31)
[2019-09-13 08:32] VITALS: BP 109/76
[2019-09-13 16:33] VITALS: BP 127/74
[2019-09-13] MEDS: LORazepam 2 MG TABLET PO PRN (18:14)
[2019-09-13] MEDS: TraZODone HCL 100 MG TABLET PO SCH (20:52)
[2019-09-13] MEDS: HALOPERIDOL 5 MG TABLET PO SCH (20:52)
[2019-09-13] MEDS: MIRTAZAPINE 15 MG TABLET PO SCH (20:52)
[2019-09-13] MEDS: SIMVASTATIN 10 MG TABLET PO SCH (20:52)
[2019-09-14 06:23] VITALS: BP 111/72
[2019-09-14] MEDS: DIVALPROEX SODIUM 250 MG ER TABLET PO SCH ×2 (08:01→16:39)
[2019-09-14 08:03] VITALS: BP 112/70
[2019-09-14 16:25] VITALS: BP 98/74
[2019-09-14] MEDS: MAG HYDROX/AL HYDROX/SIMETH ES 30 ML SUSPENSION UDCUP PO PRN (19:24)
[2019-09-14] MEDS: LORazepam 2 MG TABLET PO PRN (19:42)
[2019-09-14] MEDS: SIMVASTATIN 10 MG TABLET PO SCH (21:13)
[2019-09-14] MEDS: MIRTAZAPINE 15 MG TABLET PO SCH (21:13)
[2019-09-14] MEDS: TraZODone HCL 100 MG TABLET PO SCH (21:13)
[2019-09-14] MEDS: HALOPERIDOL 5 MG TABLET PO SCH (21:13)
[2019-09-15 00:06] VITALS: BP 105/62
[2019-09-15 08:24] VITALS: BP 106/62
[2019-09-15] MEDS: DIVALPROEX SODIUM 250 MG ER TABLET PO SCH ×2 (08:28→16:34)
[2019-09-15 16:02] VITALS: BP 111/69
[2019-09-15] MEDS: LORazepam 2 MG TABLET PO PRN (18:40)
[2019-09-15] MEDS: MIRTAZAPINE 15 MG TABLET PO SCH (20:54)
[2019-09-15] MEDS: TraZODone HCL 100 MG TABLET PO SCH (20:54)
[2019-09-15] MEDS: HALOPERIDOL 5 MG TABLET PO SCH (20:54)
[2019-09-15] MEDS: SIMVASTATIN 10 MG TABLET PO SCH (21:02)
[2019-09-16 05:22] VITALS: BP 101/63
[2019-09-16 08:14] VITALS: BP 113/82
[2019-09-16] MEDS: DIVALPROEX SODIUM 250 MG ER TABLET PO SCH ×2 (08:29→16:29)
[2019-09-16 16:19] VITALS: BP 136/75
[2019-09-16] MEDS: LORazepam 2 MG TABLET PO PRN (18:40)
[2019-09-16] MEDS: RisperiDONE 4 MG TABLET PO SCH (20:58)
[2019-09-16] MEDS: SIMVASTATIN 10 MG TABLET PO SCH (20:58)
[2019-09-16] MEDS: MIRTAZAPINE 15 MG TABLET PO SCH (20:58)
[2019-09-16] MEDS: TraZODone HCL 100 MG TABLET PO SCH (20:58)
[2019-09-16] MEDS: ZOLPIDEM TARTRATE 10 MG TABLET PO PRN (22:44)
[2019-09-17] MEDS: LORazepam 2 MG TABLET PO PRN ×2 (00:13→19:51)
[2019-09-17 00:31] VITALS: BP 132/78
[2019-09-17] MEDS: DIVALPROEX SODIUM 250 MG ER TABLET PO SCH ×2 (08:26→16:03)
[2019-09-17 08:29] VITALS: BP 121/71
[2019-09-17 16:10] VITALS: BP 111/68
[2019-09-17] MEDS: TraZODone HCL 100 MG TABLET PO SCH (21:23)
[2019-09-17] MEDS: SIMVASTATIN 10 MG TABLET PO SCH (21:23)
[2019-09-17] MEDS: RisperiDONE 4 MG TABLET PO SCH (21:23)
[2019-09-17] MEDS: MIRTAZAPINE 15 MG TABLET PO SCH (21:23)
[2019-09-17] MEDS: ZOLPIDEM TARTRATE 10 MG TABLET PO PRN (22:38)
[2019-09-18 00:45] VITALS: BP 121/71
[2019-09-18 09:03] VITALS: BP 115/90
[2019-09-18] MEDS: DIVALPROEX SODIUM 250 MG ER TABLET PO SCH ×2 (09:14→17:04)
[2019-09-18] MEDS ORDERED: PALIPERIDONE PALMITATE 234 MG/1.5 ML SYRINGE IM ONE (10:45)
[2019-09-18 16:00] VITALS: BP 101/71
[2019-09-18] MEDS: LORazepam 2 MG TABLET PO PRN (19:56)
[2019-09-18] MEDS: SIMVASTATIN 10 MG TABLET PO SCH (21:18)
[2019-09-18] MEDS: RisperiDONE 4 MG TABLET PO SCH (21:18)
[2019-09-18] MEDS: TraZODone HCL 100 MG TABLET PO SCH (21:18)
[2019-09-18] MEDS: BENZTROPINE MESYLATE 1 MG TABLET PO SCH (21:18)
[2019-09-18] MEDS: MIRTAZAPINE 15 MG TABLET PO SCH (21:18)
[2019-09-18] MEDS: MAG HYDROX/AL HYDROX/SIMETH ES 30 ML SUSPENSION UDCUP PO PRN (21:51)
[2019-09-18] MEDS: ZOLPIDEM TARTRATE 10 MG TABLET PO PRN (22:53)
[2019-09-19 00:07] VITALS: BP 117/81
[2019-09-19 08:35] VITALS: BP 124/50
[2019-09-19] MEDS: DIVALPROEX SODIUM 250 MG ER TABLET PO SCH ×2 (08:57→16:35)
[2019-09-19 16:17] VITALS: BP 109/71
[2019-09-19] MEDS: LORazepam 2 MG TABLET PO PRN ×2 (18:45→23:43)
[2019-09-19] MEDS: TraZODone HCL 100 MG TABLET PO SCH (20:47)
[2019-09-19] MEDS: BENZTROPINE MESYLATE 1 MG TABLET PO SCH (20:47)
[2019-09-19] MEDS: RisperiDONE 4 MG TABLET PO SCH (20:47)
[2019-09-19] MEDS: MIRTAZAPINE 15 MG TABLET PO SCH (20:47)
[2019-09-19] MEDS: SIMVASTATIN 10 MG TABLET PO SCH (20:47)
[2019-09-19] MEDS: ZOLPIDEM TARTRATE 10 MG TABLET PO PRN (21:52)
[2019-09-20 00:12] VITALS: BP 137/83
[2019-09-20 08:10] VITALS: BP 102/66
[2019-09-20] MEDS: DIVALPROEX SODIUM 250 MG ER TABLET PO SCH ×2 (09:19→16:39)
[2019-09-20 16:25] VITALS: BP 123/79
[2019-09-20] MEDS: LORazepam 2 MG TABLET PO PRN ×2 (19:21→23:44)
[2019-09-20] MEDS: MAG HYDROX/AL HYDROX/SIMETH ES 30 ML SUSPENSION UDCUP PO PRN (21:08)
[2019-09-20] MEDS: SIMVASTATIN 10 MG TABLET PO SCH (21:25)
[2019-09-20] MEDS: MIRTAZAPINE 15 MG TABLET PO SCH (21:25)
[2019-09-20] MEDS: RisperiDONE 4 MG TABLET PO SCH (21:25)
[2019-09-20] MEDS: BENZTROPINE MESYLATE 1 MG TABLET PO SCH (21:25)
[2019-09-20] MEDS: TraZODone HCL 100 MG TABLET PO SCH (21:25)
[2019-09-20] MEDS: ZOLPIDEM TARTRATE 10 MG TABLET PO PRN (23:44)
[2019-09-21 01:42] VITALS: BP 119/76
[2019-09-21 08:21] VITALS: BP 104/60
[2019-09-21] MEDS: DIVALPROEX SODIUM 250 MG ER TABLET PO SCH ×2 (08:35→16:37)
[2019-09-21 16:13] VITALS: BP 128/68
[2019-09-21] MEDS: LORazepam 2 MG TABLET PO PRN (20:07)
[2019-09-21] MEDS: TraZODone HCL 100 MG TABLET PO SCH (21:25)
[2019-09-21] MEDS: SIMVASTATIN 10 MG TABLET PO SCH (21:25)
[2019-09-21] MEDS: RisperiDONE 4 MG TABLET PO SCH (21:25)
[2019-09-21] MEDS: MIRTAZAPINE 15 MG TABLET PO SCH (21:25)
[2019-09-21] MEDS: BENZTROPINE MESYLATE 1 MG TABLET PO SCH (21:26)
[2019-09-21] MEDS: MAG HYDROX/AL HYDROX/SIMETH ES 30 ML SUSPENSION UDCUP PO PRN (21:32)
[2019-09-22 06:57] VITALS: BP 100/71
[2019-09-22] MEDS: DIVALPROEX SODIUM 250 MG ER TABLET PO SCH ×2 (08:33→16:18)
[2019-09-22] MEDS ORDERED: PALIPERIDONE PALMITATE 156 MG/ML SYRINGE IM ONE (09:00)
[2019-09-22 10:44] VITALS: BP 115/65
[2019-09-22 16:57] VITALS: BP 113/62
[2019-09-22] MEDS: MAG HYDROX/AL HYDROX/SIMETH ES 30 ML SUSPENSION UDCUP PO PRN (20:09)
[2019-09-22] MEDS: MIRTAZAPINE 15 MG TABLET PO SCH (20:56)
[2019-09-22] MEDS: TraZODone HCL 100 MG TABLET PO SCH (20:56)
[2019-09-22] MEDS: RisperiDONE 4 MG TABLET PO SCH (20:56)
[2019-09-22] MEDS: BENZTROPINE MESYLATE 1 MG TABLET PO SCH (20:56)
[2019-09-22] MEDS: SIMVASTATIN 10 MG TABLET PO SCH (20:57)
[2019-09-22] MEDS: LORazepam 2 MG TABLET PO PRN (20:58)
[2019-09-23 06:26] VITALS: BP 99/60
[2019-09-23] MEDS: DIVALPROEX SODIUM 250 MG ER TABLET PO SCH ×2 (08:26→16:33)
[2019-09-23 08:32] VITALS: BP 112/62
[2019-09-23] MEDS: LORazepam 2 MG TABLET PO PRN (14:40)
[2019-09-23 16:06] VITALS: BP 105/72
[2019-09-23] MEDS ORDERED: DIVA500T52 PO (20:12)
[2019-09-23] MEDS ORDERED: BENZ1TAB10 PO (20:12)
[2019-09-23] MEDS ORDERED: RISP4TAB73 PO (20:12)
[2019-09-23] MEDS ORDERED: SIMV-259 PO (20:12)
[2019-09-23] MEDS: TraZODone HCL 100 MG TABLET PO SCH (20:30)
[2019-09-23] MEDS: RisperiDONE 4 MG TABLET PO SCH (20:30)
[2019-09-23] MEDS: MIRTAZAPINE 15 MG TABLET PO SCH (20:30)
[2019-09-23] MEDS: SIMVASTATIN 10 MG TABLET PO SCH (20:30)
[2019-09-23] MEDS: BENZTROPINE MESYLATE 1 MG TABLET PO SCH (20:30)
[2019-09-23] MEDS: ZOLPIDEM TARTRATE 10 MG TABLET PO PRN (20:56)
[2019-09-24] MEDS: LORazepam 2 MG TABLET PO PRN (00:22)
[2019-09-24 00:36] VITALS: BP 116/73
[2019-09-24] MEDS: DIVALPROEX SODIUM 250 MG ER TABLET PO SCH (08:07)
[2019-09-24 08:22] LABS: HEMATOCRIT 40.3 % (41-53); HEMOGLOBIN 13.7 g/dL (13.5-17.5); MEAN CORPUSCULAR HEMOGLOBIN 30.2 pg (26.0-34.0); MEAN CORPUSCULAR VOLUME 89 fL (80-100); PLATELET COUNT (AUTO) 186 K/uL (150-450); RED BLOOD CELL COUNT(AUTO) 4.54 MIL/uL (4.50-5.90); RED CELL DISTRIBUTION WIDTH 13.1 % (11.5-14.5)
[2019-09-24 08:33] LABS: HEMOGLOBIN A1C 5.8 % (3.8-5.6)
[2019-09-24 08:46] VITALS: BP 101/67
[2019-09-24 08:58] LABS: ANION GAP 10 mmol/L (8-16); CARBON DIOXIDE 28 mmol/L (22-29); CHLORIDE 103 mmol/L (98-107); CHOL/HDL RATIO 4.9 (4.2-7.3); CHOLESTEROL 163 mg/dL (131-200); GLOMERULAR FILTR. RATE CALC > 60 mL/min (>60); GLUCOSE,RANDOM 86 mg/dL (70-110); HDL CHOLESTEROL 33 mg/dL (40-60); LDL CHOL (CALC.) 97 mg/dL (0-130); PHOSPHORUS 4.9 mg/dL (2.5-4.9); POTASSIUM 4.3 mmol/L (3.5-5.1); SODIUM SERUM 141 mmol/L (136-145); THYROID STIMULATING HORMONE 2.11 uIU/mL (0.36-3.74); TRIGLYCERIDES 163 mg/dL (15-150); UREA NITROGEN, BLOOD 18 mg/dL (7-18)
[2019-09-24 09:28] LABS: BAND NEUTROPHILS % (MANUAL) 1 % (0-5); EOSINOPHILS % (MANUAL) 5 % (1-6); LYMPHOCYTES % (MANUAL) 27 % (22-44); MONOCYTES % (MANUAL) 8 % (2-9); SEGMENTED NEUTROPHILS % 59 % (40-70)
[2019-10-20] MEDS ORDERED: PALIPERIDONE PALMITATE 234 MG/1.5 ML SYRINGE IM SCH (09:00)
== END 2019-09-24 13:00 | disposition home or self-care (01) | DRG 885 ==
LOC: EMS 18:05 → B2X 20:37
PROVIDERS: ADMIT Psychiatry & Neurology Psychiatry; ATTEND Psychiatry & Neurology Psychiatry
DX: F25.1 Schizoaffective disorder, depressive type (principal); R45.851 Suicidal ideations; B18.2 Chronic viral hepatitis C; K21.9 Gastro-esophageal reflux disease without esophagitis; J44.9 Chronic obstructive pulmonary disease, unspecified; K59.00 Constipation, unspecified; F17.210 Nicotine dependence, cigarettes, uncomplicated; R45.81 Low self-esteem; F41.8 Other specified anxiety disorders; E78.1 Pure hyperglyceridemia; Z59.0 Homelessness; Z91.14 Patient's other noncompliance with medication regimen; Z79.899 Other long term (current) drug therapy; Z88.8 Allergy status to other drugs, medicaments and biological substances; Z71.6 Tobacco abuse counseling
CPT/HCPCS: 83036; 83735; 84100; 84443; 85007; 87081; G0480

== ENCOUNTER 2019-09-29 14:23 | Inpatient (IN) | payer MEDICARE, MEDICAID ==
[~2019-09-29] VITALS: Ht 177.8 cm; Wt 81.5 kg
[~2019-09-29 14:23] MED LIST changes: +BENZ1TAB10 PO; -DIVA-76 PO; +DIVA-80 PO; -HALO10 PO; +RISP4TAB73 PO; +SIMV-259 PO
[2019-09-29 17:12] LABS: BASOPHILS % (AUTO) 0.3 % (0.0-2.0); EOSINOPHILS % (AUTO) 1.4 % (1.0-6.0); HEMATOCRIT 41.2 % (41-53); LYMPHOCYTES # (AUTO) 1.6 K/uL (1.0-4.8); LYMPHOCYTES % (AUTO) 20.6 % (22.0-44.0); MEAN CORPUSCULAR HEMOGLOBIN 30.2 pg (26.0-34.0); MEAN CORPUSCULAR HGB CONC 33.9 G/dL (31.0-37.0); MEAN CORPUSCULAR VOLUME 89 fL (80-100); MONOCYTES # (AUTO) 0.6 K/uL (0.1-1.0); MONOCYTES % (AUTO) 7.2 % (2.0-9.0); NEUTROPHILS # (AUTO) 5.4 K/uL (1.8-7.7); NEUTROPHILS % (AUTO) 70.5 % (40.0-70.0); PLATELET COUNT (AUTO) 239 K/uL (150-450); RED BLOOD CELL COUNT(AUTO) 4.63 MIL/uL (4.50-5.90); RED CELL DISTRIBUTION WIDTH 13.3 % (11.5-14.5)
[2019-09-29 17:26] LABS: ANION GAP 9 mmol/L (8-16); CALCIUM, TOTAL 9.1 mg/dL (8.8-10.5); CARBON DIOXIDE 27 mmol/L (22-29); CHLORIDE 103 mmol/L (98-107); GLOMERULAR FILTR. RATE CALC > 60 mL/min (>60); GLUCOSE,RANDOM 105 mg/dL (70-110); SODIUM SERUM 139 mmol/L (136-145); UREA NITROGEN, BLOOD 16 mg/dL (7-18)
[2019-09-29 17:33] LABS: ALANINE AMINOTRANSFERASE 32 U/L (12-78); ALBUMIN 3.9 g/dL (3.4-5.0); ALKALINE PHOSPHATASE 64 U/L (46-116); ASPARTATE AMINOTRANSFERASE 19 U/L (15-37); BILIRUBIN,TOTAL 0.3 mg/dL (0.1-1.0); TOTAL PROTEIN, SERUM 7.9 g/dL (6.4-8.2); VALPROIC ACID 58 mcg/mL (50-100)
[2019-09-29] MEDS ORDERED: GuaiFENesin/D-METHORPHAN [SUGAR-FREE] 200-20MG/10 ML SYRUP UDCUP PO PRN (17:45)
[2019-09-29] MEDS ORDERED: LOPERAMIDE HCL 2 MG CAPSULE PO PRN (17:45)
[2019-09-29] MEDS ORDERED: TUBERCULIN, PURIFIED PROTEIN DERIVATIVE 5 TU/0.1 ML SYRINGE ID ONE (17:45)
[2019-09-29] MEDS ORDERED: PROMETHAZINE HCL 25 MG TABLET PO PRN (17:45)
[2019-09-29] MEDS ORDERED: HydrOXYzine PAMOATE 50 MG CAPSULE PO PRN (17:45)
[2019-09-29 17:58] LABS: AMPHET/METH SCREEN,URINE NEGATIVE (NEGATIVE); BARBITURATE SCREEN, URINE NEGATIVE (NEGATIVE); BENZODIAZEPINES SCREEN,URINE NEGATIVE (NEGATIVE); CANNABINOID SCREEN,URINE NEGATIVE (NEGATIVE); COCAINE SCREEN,URINE NEGATIVE (NEGATIVE); METHADONE SCREEN, URINE NEGATIVE (NEGATIVE); OPIATE SCREEN,URINE NEGATIVE (NEGATIVE)
[2019-09-29 18:00] LABS: PHENCYCLIDINE SCREEN,URINE NEGATIVE (NEGATIVE)
[2019-09-29] MEDS: LORazepam 2 MG TABLET PO PRN ×2 (18:13→23:51)
[2019-09-29 19:43] VITALS: BP 106/71
[2019-09-29] MEDS: THIAMINE 100 MG TABLET PO SCH (20:36)
[2019-09-29] MEDS ORDERED: OLANZapine 5 MG RAPDIS TABLET PO SCH (21:00)
[2019-09-29] MEDS: DIVALPROEX SODIUM 500 MG ER TABLET PO SCH (21:34)
[2019-09-29] MEDS: TraZODone HCL 50 MG TABLET PO SCH (21:34)
[2019-09-29] MEDS: SIMVASTATIN 10 MG TABLET PO SCH (21:35)
[2019-09-29] MEDS: ZOLPIDEM TARTRATE 10 MG TABLET PO PRN (23:51)
[2019-09-30 00:50] VITALS: BP 128/55
[2019-09-30 07:40] LABS: HEMOGLOBIN A1C 5.8 % (3.8-5.6)
[2019-09-30 07:49] LABS: CHOL/HDL RATIO 3.6 (4.2-7.3); FREE T4 (FREE THYROXINE) 0.87 ng/dL (0.76-1.46); THYROID STIMULATING HORMONE 1.33 uIU/mL (0.36-3.74)
[2019-09-30 08:24] VITALS: BP 151/67
[2019-09-30] MEDS: FLUoxetine HCL 20 MG CAPSULE PO SCH (10:17)
[2019-09-30] MEDS: NALTREXONE HCL 50 MG TABLET PO SCH (10:17)
[2019-09-30] MEDS: THIAMINE 100 MG TABLET PO SCH ×2 (10:17→16:37)
[2019-09-30] MEDS: FOLIC ACID 1 MG TABLET PO SCH (10:18)
[2019-09-30] MEDS: MULTIVITAMINS WITH MINERALS, THERAPEUTIC TABLET PO SCH (10:19)
[2019-09-30 16:00] VITALS: BP 114/65
[2019-09-30] MEDS ORDERED: SIMVASTATIN 10 MG TABLET PO SCH (21:00)
[2019-09-30] MEDS: TraZODone HCL 50 MG TABLET PO SCH (21:05)
[2019-09-30] MEDS: DIVALPROEX SODIUM 500 MG ER TABLET PO SCH (21:05)
[2019-09-30] MEDS: SIMVASTATIN 10 MG TABLET PO SCH (21:06)
[2019-09-30] MEDS: OLANZapine 10 MG RAPDIS TABLET PO SCH (21:06)
[2019-10-01] MEDS: MAG HYDROX/AL HYDROX/SIMETH ES 30 ML SUSPENSION UDCUP PO PRN (01:49)
[2019-10-01 03:31] VITALS: BP 99/69
[2019-10-01] MEDS: NALTREXONE HCL 50 MG TABLET PO SCH (08:14)
[2019-10-01] MEDS: FOLIC ACID 1 MG TABLET PO SCH (08:14)
[2019-10-01] MEDS: FLUoxetine HCL 20 MG CAPSULE PO SCH (08:14)
[2019-10-01] MEDS: THIAMINE 100 MG TABLET PO SCH ×2 (08:14→16:22)
[2019-10-01] MEDS: MULTIVITAMINS WITH MINERALS, THERAPEUTIC TABLET PO SCH (08:15)
[2019-10-01 08:58] VITALS: BP 118/72
[2019-10-01 16:00] VITALS: BP 135/77
[2019-10-01] MEDS: OLANZapine 10 MG RAPDIS TABLET PO SCH (20:30)
[2019-10-01] MEDS: SIMVASTATIN 10 MG TABLET PO SCH (20:30)
[2019-10-01] MEDS: DIVALPROEX SODIUM 500 MG ER TABLET PO SCH (20:31)
[2019-10-01] MEDS: TraZODone HCL 50 MG TABLET PO SCH (20:31)
[2019-10-01] MEDS: ZOLPIDEM TARTRATE 10 MG TABLET PO PRN (22:54)
[2019-10-02 01:04] VITALS: BP 124/68
[2019-10-02] MEDS: LORazepam 2 MG TABLET PO PRN ×2 (01:04→18:46)
[2019-10-02] MEDS: NALTREXONE HCL 50 MG TABLET PO SCH (08:48)
[2019-10-02] MEDS: FOLIC ACID 1 MG TABLET PO SCH (08:48)
[2019-10-02] MEDS: FLUoxetine HCL 20 MG CAPSULE PO SCH (08:48)
[2019-10-02] MEDS: MULTIVITAMINS WITH MINERALS, THERAPEUTIC TABLET PO SCH (08:49)
[2019-10-02] MEDS: THIAMINE 100 MG TABLET PO SCH ×2 (08:49→16:42)
[2019-10-02 09:56] VITALS: BP 109/74
[2019-10-02 16:00] VITALS: BP 106/72
[2019-10-02] MEDS: SIMVASTATIN 10 MG TABLET PO SCH (20:11)
[2019-10-02] MEDS: DIVALPROEX SODIUM 500 MG ER TABLET PO SCH (20:11)
[2019-10-02] MEDS: OLANZapine 10 MG RAPDIS TABLET PO SCH (20:11)
[2019-10-02] MEDS: TraZODone HCL 50 MG TABLET PO SCH (20:11)
[2019-10-03] MEDS: FOLIC ACID 1 MG TABLET PO SCH (08:54)
[2019-10-03] MEDS: MULTIVITAMINS WITH MINERALS, THERAPEUTIC TABLET PO SCH (08:54)
[2019-10-03] MEDS: FLUoxetine HCL 20 MG CAPSULE PO SCH (08:54)
[2019-10-03] MEDS: THIAMINE 100 MG TABLET PO SCH ×2 (08:54→16:03)
[2019-10-03] MEDS: NALTREXONE HCL 50 MG TABLET PO SCH (08:54)
[2019-10-03 09:23] VITALS: BP 114/82
[2019-10-03 16:00] VITALS: BP 116/68
[2019-10-03] MEDS: DIVALPROEX SODIUM 500 MG ER TABLET PO SCH (20:23)
[2019-10-03] MEDS: OLANZapine 10 MG RAPDIS TABLET PO SCH (20:23)
[2019-10-03] MEDS: SIMVASTATIN 10 MG TABLET PO SCH (20:23)
[2019-10-03] MEDS: TraZODone HCL 50 MG TABLET PO SCH (20:23)
[2019-10-04] MEDS: MULTIVITAMINS WITH MINERALS, THERAPEUTIC TABLET PO SCH (08:23)
[2019-10-04] MEDS: THIAMINE 100 MG TABLET PO SCH ×2 (08:24→16:30)
[2019-10-04] MEDS: FLUoxetine HCL 20 MG CAPSULE PO SCH (08:24)
[2019-10-04] MEDS: NALTREXONE HCL 50 MG TABLET PO SCH (08:24)
[2019-10-04] MEDS: FOLIC ACID 1 MG TABLET PO SCH (08:24)
[2019-10-04 09:59] VITALS: BP 123/63
[2019-10-04 17:10] VITALS: BP 121/80
[2019-10-04] MEDS: DIVALPROEX SODIUM 500 MG ER TABLET PO SCH (20:26)
[2019-10-04] MEDS: OLANZapine 10 MG RAPDIS TABLET PO SCH (20:27)
[2019-10-04] MEDS: TraZODone HCL 50 MG TABLET PO SCH (20:27)
[2019-10-04] MEDS: SIMVASTATIN 10 MG TABLET PO SCH (20:27)
[2019-10-04] MEDS: MAG HYDROX/AL HYDROX/SIMETH ES 30 ML SUSPENSION UDCUP PO PRN (21:47)
[2019-10-05 00:50] VITALS: BP 103/59
[2019-10-05] MEDS: ZOLPIDEM TARTRATE 10 MG TABLET PO PRN (00:54)
[2019-10-05] MEDS: FLUoxetine HCL 20 MG CAPSULE PO SCH (08:02)
[2019-10-05] MEDS: NALTREXONE HCL 50 MG TABLET PO SCH (08:02)
[2019-10-05] MEDS: THIAMINE 100 MG TABLET PO SCH ×2 (08:07→16:39)
[2019-10-05] MEDS: FOLIC ACID 1 MG TABLET PO SCH (08:07)
[2019-10-05] MEDS: MULTIVITAMINS WITH MINERALS, THERAPEUTIC TABLET PO SCH (08:07)
[2019-10-05 08:30] VITALS: BP 116/66
[2019-10-05] MEDS: MAG HYDROX/AL HYDROX/SIMETH ES 30 ML SUSPENSION UDCUP PO PRN (08:53)
[2019-10-05] MEDS: LORazepam 2 MG TABLET PO PRN (11:16)
[2019-10-05 18:41] VITALS: BP 113/56
[2019-10-05] MEDS: DIVALPROEX SODIUM 500 MG ER TABLET PO SCH (21:03)
[2019-10-05] MEDS: SIMVASTATIN 10 MG TABLET PO SCH (21:06)
[2019-10-05] MEDS: TraZODone HCL 50 MG TABLET PO SCH (21:06)
[2019-10-05] MEDS: OLANZapine 10 MG RAPDIS TABLET PO SCH (21:07)
[2019-10-06] MEDS: FLUoxetine HCL 20 MG CAPSULE PO SCH (08:16)
[2019-10-06] MEDS: NALTREXONE HCL 50 MG TABLET PO SCH (08:16)
[2019-10-06 08:40] VITALS: BP 122/79
[2019-10-06] MEDS: FOLIC ACID 1 MG TABLET PO SCH (08:59)
[2019-10-06] MEDS: MULTIVITAMINS WITH MINERALS, THERAPEUTIC TABLET PO SCH (09:00)
[2019-10-06] MEDS: THIAMINE 100 MG TABLET PO SCH ×2 (09:00→16:44)
[2019-10-06 16:30] VITALS: BP 107/67
[2019-10-06] MEDS: TraZODone HCL 50 MG TABLET PO SCH (20:25)
[2019-10-06] MEDS: OLANZapine 10 MG RAPDIS TABLET PO SCH (20:25)
[2019-10-06] MEDS: SIMVASTATIN 10 MG TABLET PO SCH (20:25)
[2019-10-06] MEDS: DIVALPROEX SODIUM 500 MG ER TABLET PO SCH (20:25)
[2019-10-07] MEDS: FOLIC ACID 1 MG TABLET PO SCH (09:00)
[2019-10-07] MEDS: THIAMINE 100 MG TABLET PO SCH ×2 (09:00→17:00)
[2019-10-07] MEDS: MULTIVITAMINS WITH MINERALS, THERAPEUTIC TABLET PO SCH (09:00)
[2019-10-07] MEDS: NALTREXONE HCL 50 MG TABLET PO SCH (09:23)
[2019-10-07] MEDS: FLUoxetine HCL 20 MG CAPSULE PO SCH (09:23)
[2019-10-07 10:31] VITALS: BP 113/58
[2019-10-07] MEDS: OLANZapine 5 MG RAPDIS TABLET PO PRN (10:41)
[2019-10-07 16:14] VITALS: BP 114/64
[2019-10-07] MEDS: TRIHEXYPHENIDYL HCL 2 MG TABLET PO SCH (16:42)
[2019-10-07] MEDS: DIVALPROEX SODIUM 500 MG ER TABLET PO SCH (20:30)
[2019-10-07] MEDS: TraZODone HCL 50 MG TABLET PO SCH (20:31)
[2019-10-07] MEDS: GABAPENTIN 300 MG CAPSULE PO SCH (20:31)
[2019-10-07] MEDS: SIMVASTATIN 10 MG TABLET PO SCH (20:31)
[2019-10-07] MEDS: ROPINIRole HCL 1 MG TABLET PO SCH (20:31)
[2019-10-07] MEDS: OLANZapine 10 MG RAPDIS TABLET PO SCH (21:13)
[2019-10-08 08:00] VITALS: BP 114/69
[2019-10-08] MEDS: FLUoxetine HCL 20 MG CAPSULE PO SCH (08:49)
[2019-10-08] MEDS: TRIHEXYPHENIDYL HCL 2 MG TABLET PO SCH ×3 (08:49→16:33)
[2019-10-08] MEDS: NALTREXONE HCL 50 MG TABLET PO SCH (08:49)
[2019-10-08] MEDS: GABAPENTIN 300 MG CAPSULE PO SCH ×4 (08:49→20:22)
[2019-10-08] MEDS: THIAMINE 100 MG TABLET PO SCH ×2 (09:00→16:44)
[2019-10-08] MEDS: MULTIVITAMINS WITH MINERALS, THERAPEUTIC TABLET PO SCH (09:00)
[2019-10-08] MEDS: FOLIC ACID 1 MG TABLET PO SCH (09:00)
[2019-10-08 16:00] VITALS: BP 98/50
[2019-10-08] MEDS: TraZODone HCL 50 MG TABLET PO SCH (20:22)
[2019-10-08] MEDS: OLANZapine 10 MG RAPDIS TABLET PO SCH (20:22)
[2019-10-08] MEDS: DIVALPROEX SODIUM 500 MG ER TABLET PO SCH (20:22)
[2019-10-08] MEDS: SIMVASTATIN 10 MG TABLET PO SCH (20:22)
[2019-10-08] MEDS: ROPINIRole HCL 1 MG TABLET PO SCH (20:22)
[2019-10-09 00:50] VITALS: BP 109/69
[2019-10-09] MEDS: ZOLPIDEM TARTRATE 10 MG TABLET PO PRN (00:58)
[2019-10-09] MEDS: TRIHEXYPHENIDYL HCL 2 MG TABLET PO SCH ×3 (08:45→16:49)
[2019-10-09] MEDS: FLUoxetine HCL 20 MG CAPSULE PO SCH (08:46)
[2019-10-09] MEDS: NALTREXONE HCL 50 MG TABLET PO SCH (08:46)
[2019-10-09] MEDS: GABAPENTIN 300 MG CAPSULE PO SCH ×4 (08:46→20:15)
[2019-10-09] MEDS: MULTIVITAMINS WITH MINERALS, THERAPEUTIC TABLET PO SCH (09:00)
[2019-10-09] MEDS: THIAMINE 100 MG TABLET PO SCH (09:00)
[2019-10-09] MEDS: FOLIC ACID 1 MG TABLET PO SCH (09:00)
[2019-10-09 09:32] VITALS: BP 117/64
[2019-10-09 17:00] VITALS: BP 106/61
[2019-10-09] MEDS: DIVALPROEX SODIUM 500 MG ER TABLET PO SCH (20:15)
[2019-10-09] MEDS: TraZODone HCL 50 MG TABLET PO SCH (20:15)
[2019-10-09] MEDS: ROPINIRole HCL 1 MG TABLET PO SCH (20:15)
[2019-10-09] MEDS: SIMVASTATIN 10 MG TABLET PO SCH (20:16)
[2019-10-09] MEDS: OLANZapine 10 MG RAPDIS TABLET PO SCH (20:16)
[2019-10-10 08:00] VITALS: BP 151/83
[2019-10-10] MEDS: FLUoxetine HCL 20 MG CAPSULE PO SCH (09:00)
[2019-10-10] MEDS: GABAPENTIN 300 MG CAPSULE PO SCH ×3 (09:00→16:53)
[2019-10-10] MEDS: TRIHEXYPHENIDYL HCL 2 MG TABLET PO SCH ×3 (09:00→16:53)
[2019-10-10] MEDS: NALTREXONE HCL 50 MG TABLET PO SCH (09:01)
[2019-10-10] MEDS: MULTIVITAMINS WITH MINERALS, THERAPEUTIC TABLET PO SCH (09:02)
[2019-10-10] MEDS: OLANZapine 5 MG RAPDIS TABLET PO PRN (12:21)
[2019-10-10 16:00] VITALS: BP 102/64
[2019-10-10] MEDS: ROPINIRole HCL 1 MG TABLET PO SCH (20:25)
[2019-10-10] MEDS: DIVALPROEX SODIUM 500 MG ER TABLET PO SCH (20:26)
[2019-10-10] MEDS: TraZODone HCL 50 MG TABLET PO SCH (20:26)
[2019-10-10] MEDS: SIMVASTATIN 10 MG TABLET PO SCH (20:26)
[2019-10-10] MEDS: GABAPENTIN 400 MG CAPSULE PO SCH (20:26)
[2019-10-10] MEDS: OLANZapine 10 MG RAPDIS TABLET PO SCH (20:27)
[2019-10-11 11:22] VITALS: BP 105/65
[2019-10-11] MEDS: MULTIVITAMINS WITH MINERALS, THERAPEUTIC TABLET PO SCH (12:33)
[2019-10-11] MEDS: GABAPENTIN 400 MG CAPSULE PO SCH ×2 (12:33→13:00)
[2019-10-11] MEDS: NALTREXONE HCL 50 MG TABLET PO SCH (12:38)
[2019-10-11] MEDS: TRIHEXYPHENIDYL HCL 2 MG TABLET PO SCH ×3 (12:39→16:12)
[2019-10-11] MEDS: TraZODone HCL 50 MG TABLET PO SCH ×2 (12:39→20:36)
[2019-10-11] MEDS: OLANZapine 5 MG RAPDIS TABLET PO PRN (12:48)
[2019-10-11] MEDS: FLUoxetine HCL 20 MG CAPSULE PO SCH (12:51)
[2019-10-11] MEDS: GABAPENTIN 300 MG CAPSULE PO SCH ×2 (16:12→20:37)
[2019-10-11] MEDS: DIVALPROEX SODIUM 500 MG ER TABLET PO SCH (20:36)
[2019-10-11] MEDS: ROPINIRole HCL 1 MG TABLET PO SCH (20:36)
[2019-10-11] MEDS: SIMVASTATIN 10 MG TABLET PO SCH (20:36)
[2019-10-11] MEDS: OLANZapine 10 MG RAPDIS TABLET PO SCH (20:36)
[2019-10-12 03:15] VITALS: BP 102/66
[2019-10-12 08:46] VITALS: BP 98/60
[2019-10-12] MEDS: TRIHEXYPHENIDYL HCL 2 MG TABLET PO SCH ×3 (09:19→16:40)
[2019-10-12] MEDS: NALTREXONE HCL 50 MG TABLET PO SCH (09:20)
[2019-10-12] MEDS: GABAPENTIN 300 MG CAPSULE PO SCH ×3 (09:20→16:40)
[2019-10-12] MEDS: MULTIVITAMINS WITH MINERALS, THERAPEUTIC TABLET PO SCH (09:20)
[2019-10-12] MEDS: FLUoxetine HCL 20 MG CAPSULE PO SCH (09:20)
[2019-10-12 19:31] VITALS: BP 105/65
[2019-10-12] MEDS: SIMVASTATIN 10 MG TABLET PO SCH (20:04)
[2019-10-12] MEDS: DIVALPROEX SODIUM 500 MG ER TABLET PO SCH (20:04)
[2019-10-12] MEDS: TraZODone HCL 50 MG TABLET PO SCH (20:04)
[2019-10-12] MEDS: ROPINIRole HCL 1 MG TABLET PO SCH (20:04)
[2019-10-12] MEDS: GABAPENTIN 400 MG CAPSULE PO SCH (20:05)
[2019-10-12] MEDS: OLANZapine 10 MG RAPDIS TABLET PO SCH (20:05)
[2019-10-13 08:00] VITALS: BP 102/60
[2019-10-13] MEDS: FLUoxetine HCL 20 MG CAPSULE PO SCH (08:26)
[2019-10-13] MEDS: TRIHEXYPHENIDYL HCL 5 MG TABLET PO SCH ×3 (08:26→16:01)
[2019-10-13] MEDS: GABAPENTIN 400 MG CAPSULE PO SCH ×4 (08:26→20:25)
[2019-10-13] MEDS: NALTREXONE HCL 50 MG TABLET PO SCH (08:27)
[2019-10-13] MEDS: MULTIVITAMINS WITH MINERALS, THERAPEUTIC TABLET PO SCH (08:31)
[2019-10-13] MEDS: MAG HYDROX/AL HYDROX/SIMETH ES 30 ML SUSPENSION UDCUP PO PRN (09:41)
[2019-10-13 16:00] VITALS: BP 103/80
[2019-10-13] MEDS: DIVALPROEX SODIUM 500 MG ER TABLET PO SCH (20:25)
[2019-10-13] MEDS: ROPINIRole HCL 1 MG TABLET PO SCH (20:25)
[2019-10-13] MEDS: OLANZapine 10 MG RAPDIS TABLET PO SCH (20:25)
[2019-10-13] MEDS: SIMVASTATIN 10 MG TABLET PO SCH (20:25)
[2019-10-13] MEDS: TraZODone HCL 50 MG TABLET PO SCH (20:25)
[2019-10-14] MEDS: GABAPENTIN 400 MG CAPSULE PO SCH ×4 (09:00→20:28)
[2019-10-14] MEDS: FLUoxetine HCL 20 MG CAPSULE PO SCH (09:00)
[2019-10-14] MEDS: TRIHEXYPHENIDYL HCL 5 MG TABLET PO SCH ×3 (09:00→16:41)
[2019-10-14] MEDS: MULTIVITAMINS WITH MINERALS, THERAPEUTIC TABLET PO SCH (09:01)
[2019-10-14] MEDS: NALTREXONE HCL 50 MG TABLET PO SCH (09:02)
[2019-10-14] MEDS: MAG HYDROX/AL HYDROX/SIMETH ES 30 ML SUSPENSION UDCUP PO PRN (09:36)
[2019-10-14 11:53] VITALS: BP 112/72
[2019-10-14 16:01] VITALS: BP 98/52
[2019-10-14] MEDS: OLANZapine 10 MG RAPDIS TABLET PO SCH (20:27)
[2019-10-14] MEDS: SIMVASTATIN 10 MG TABLET PO SCH (20:27)
[2019-10-14] MEDS: DIVALPROEX SODIUM 500 MG ER TABLET PO SCH (20:27)
[2019-10-14] MEDS: TraZODone HCL 50 MG TABLET PO SCH (20:27)
[2019-10-14] MEDS: ROPINIRole HCL 1 MG TABLET PO SCH (20:28)
[2019-10-15 08:00] VITALS: BP 105/58
[2019-10-15] MEDS: TRIHEXYPHENIDYL HCL 5 MG TABLET PO SCH ×3 (08:30→16:14)
[2019-10-15] MEDS: NALTREXONE HCL 50 MG TABLET PO SCH (08:31)
[2019-10-15] MEDS: FLUoxetine HCL 20 MG CAPSULE PO SCH (08:34)
[2019-10-15] MEDS: GABAPENTIN 400 MG CAPSULE PO SCH ×4 (08:36→20:15)
[2019-10-15] MEDS: MULTIVITAMINS WITH MINERALS, THERAPEUTIC TABLET PO SCH (09:00)
[2019-10-15 16:53] VITALS: BP 119/71
[2019-10-15] MEDS: SIMVASTATIN 10 MG TABLET PO SCH (20:14)
[2019-10-15] MEDS: OLANZapine 10 MG RAPDIS TABLET PO SCH (20:14)
[2019-10-15] MEDS: ROPINIRole HCL 1 MG TABLET PO SCH (20:14)
[2019-10-15] MEDS: TraZODone HCL 50 MG TABLET PO SCH (20:15)
[2019-10-15] MEDS: DIVALPROEX SODIUM 500 MG ER TABLET PO SCH (20:15)
[2019-10-16 03:39] VITALS: BP 111/60
[2019-10-16 08:00] VITALS: BP 143/60
[2019-10-16] MEDS: MULTIVITAMINS WITH MINERALS, THERAPEUTIC TABLET PO SCH (09:00)
[2019-10-16] MEDS: GABAPENTIN 400 MG CAPSULE PO SCH ×4 (09:06→20:38)
[2019-10-16] MEDS: FLUoxetine HCL 20 MG CAPSULE PO SCH (09:06)
[2019-10-16] MEDS: TRIHEXYPHENIDYL HCL 5 MG TABLET PO SCH ×3 (09:06→16:33)
[2019-10-16] MEDS: NALTREXONE HCL 50 MG TABLET PO SCH (09:07)
[2019-10-16 16:47] VITALS: BP 122/64
[2019-10-16] MEDS: OLANZapine 10 MG RAPDIS TABLET PO SCH (20:36)
[2019-10-16] MEDS: ROPINIRole HCL 1 MG TABLET PO SCH (20:37)
[2019-10-16] MEDS: TraZODone HCL 50 MG TABLET PO SCH (20:37)
[2019-10-16] MEDS: SIMVASTATIN 10 MG TABLET PO SCH (20:37)
[2019-10-16] MEDS: DIVALPROEX SODIUM 500 MG ER TABLET PO SCH (20:39)
[2019-10-17 02:48] VITALS: BP 121/67
[2019-10-17] MEDS: TRIHEXYPHENIDYL HCL 5 MG TABLET PO SCH ×3 (08:53→16:32)
[2019-10-17] MEDS: MULTIVITAMINS WITH MINERALS, THERAPEUTIC TABLET PO SCH (08:53)
[2019-10-17] MEDS: GABAPENTIN 400 MG CAPSULE PO SCH ×4 (08:53→21:31)
[2019-10-17] MEDS: FLUoxetine HCL 20 MG CAPSULE PO SCH (08:53)
[2019-10-17] MEDS: NALTREXONE HCL 50 MG TABLET PO SCH (08:54)
[2019-10-17 09:00] VITALS: BP 107/67
[2019-10-17 16:00] VITALS: BP 101/60
[2019-10-17] MEDS: DIVALPROEX SODIUM 500 MG ER TABLET PO SCH (21:00)
[2019-10-17] MEDS: TraZODone HCL 50 MG TABLET PO SCH (21:31)
[2019-10-17] MEDS: SIMVASTATIN 10 MG TABLET PO SCH (21:31)
[2019-10-17] MEDS: ROPINIRole HCL 1 MG TABLET PO SCH (21:31)
[2019-10-17] MEDS: OLANZapine 10 MG RAPDIS TABLET PO SCH (21:31)
[2019-10-18] MEDS: TRIHEXYPHENIDYL HCL 5 MG TABLET PO SCH ×3 (08:09→16:12)
[2019-10-18] MEDS: MULTIVITAMINS WITH MINERALS, THERAPEUTIC TABLET PO SCH (08:09)
[2019-10-18] MEDS: GABAPENTIN 400 MG CAPSULE PO SCH ×4 (08:09→20:25)
[2019-10-18] MEDS: NALTREXONE HCL 50 MG TABLET PO SCH (08:10)
[2019-10-18] MEDS: FLUoxetine HCL 20 MG CAPSULE PO SCH (08:10)
[2019-10-18 10:24] VITALS: BP 112/65
[2019-10-18 20:22] VITALS: BP 107/68
[2019-10-18] MEDS: OLANZapine 10 MG RAPDIS TABLET PO SCH (20:25)
[2019-10-18] MEDS: TraZODone HCL 50 MG TABLET PO SCH (20:25)
[2019-10-18] MEDS: DIVALPROEX SODIUM 500 MG ER TABLET PO SCH (20:26)
[2019-10-18] MEDS: ROPINIRole HCL 1 MG TABLET PO SCH (20:26)
[2019-10-18] MEDS: SIMVASTATIN 10 MG TABLET PO SCH (20:26)
[2019-10-19 05:47] VITALS: BP 109/64
[2019-10-19 07:30] LABS: BASOPHILS % (AUTO) 0.5 % (0.0-2.0); EOSINOPHILS % (AUTO) 3.8 % (1.0-6.0); HEMATOCRIT 40.3 % (41-53); HEMOGLOBIN 13.4 g/dL (13.5-17.5); LYMPHOCYTES # (AUTO) 2.1 K/uL (1.0-4.8); LYMPHOCYTES % (AUTO) 31.9 % (22.0-44.0); MEAN CORPUSCULAR HEMOGLOBIN 29.6 pg (26.0-34.0); MEAN CORPUSCULAR HGB CONC 33.3 G/dL (31.0-37.0); MEAN CORPUSCULAR VOLUME 89 fL (80-100); MONOCYTES # (AUTO) 0.7 K/uL (0.1-1.0); MONOCYTES % (AUTO) 11.2 % (2.0-9.0); NEUTROPHILS # (AUTO) 3.5 K/uL (1.8-7.7); NEUTROPHILS % (AUTO) 52.6 % (40.0-70.0); PLATELET COUNT (AUTO) 145 K/uL (150-450); RED BLOOD CELL COUNT(AUTO) 4.54 MIL/uL (4.50-5.90); RED CELL DISTRIBUTION WIDTH 14.1 % (11.5-14.5)
[2019-10-19 08:00] VITALS: BP 100/62
[2019-10-19 08:14] LABS: ALANINE AMINOTRANSFERASE 38 U/L (12-78); ALBUMIN 3.4 g/dL (3.4-5.0); ALKALINE PHOSPHATASE 49 U/L (46-116); ANION GAP 8 mmol/L (8-16); ASPARTATE AMINOTRANSFERASE 23 U/L (15-37); BILIRUBIN,TOTAL 0.3 mg/dL (0.1-1.0); CALCIUM, TOTAL 8.4 mg/dL (8.8-10.5); CARBON DIOXIDE 30 mmol/L (22-29); CHLORIDE 108 mmol/L (98-107); CREATINE KINASE, TOTAL ONLY 159 U/L (39-308); CREATININE 1.06 mg/dL (0.60-1.30); GLOMERULAR FILTR. RATE CALC > 60 mL/min (>60); GLUCOSE,RANDOM 90 mg/dL (70-110); SODIUM SERUM 146 mmol/L (136-145); UREA NITROGEN, BLOOD 23 mg/dL (7-18)
[2019-10-19] MEDS: TRIHEXYPHENIDYL HCL 5 MG TABLET PO SCH ×3 (08:36→16:26)
[2019-10-19] MEDS: GABAPENTIN 400 MG CAPSULE PO SCH ×4 (08:36→21:29)
[2019-10-19] MEDS: NALTREXONE HCL 50 MG TABLET PO SCH (08:37)
[2019-10-19] MEDS: FLUoxetine HCL 20 MG CAPSULE PO SCH (08:37)
[2019-10-19] MEDS: MULTIVITAMINS WITH MINERALS, THERAPEUTIC TABLET PO SCH (08:39)
[2019-10-19 16:57] VITALS: BP 96/65
[2019-10-19] MEDS: OLANZapine 10 MG RAPDIS TABLET PO SCH (21:29)
[2019-10-19] MEDS: ROPINIRole HCL 1 MG TABLET PO SCH (21:29)
[2019-10-19] MEDS: DIVALPROEX SODIUM 500 MG ER TABLET PO SCH (21:29)
[2019-10-19] MEDS: TraZODone HCL 50 MG TABLET PO SCH (21:29)
[2019-10-19] MEDS: SIMVASTATIN 10 MG TABLET PO SCH (21:30)
[2019-10-20] VITALS: BP 95/64
[2019-10-20] MEDS: ZOLPIDEM TARTRATE 10 MG TABLET PO PRN (01:35)
[2019-10-20] MEDS: FLUoxetine HCL 20 MG CAPSULE PO SCH (08:28)
[2019-10-20] MEDS: GABAPENTIN 400 MG CAPSULE PO SCH ×3 (08:28→16:52)
[2019-10-20] MEDS: TRIHEXYPHENIDYL HCL 5 MG TABLET PO SCH ×3 (08:28→16:52)
[2019-10-20] MEDS: MULTIVITAMINS WITH MINERALS, THERAPEUTIC TABLET PO SCH (08:29)
[2019-10-20] MEDS: NALTREXONE HCL 50 MG TABLET PO SCH (08:29)
[2019-10-20 08:52] VITALS: BP 106/71
[2019-10-20] MEDS ORDERED: PALIPERIDONE PALMITATE 234 MG/1.5 ML SYRINGE IM SCH (09:00)
[2019-10-20 16:29] VITALS: BP 110/70
[2019-10-20] MEDS: MAG HYDROX/AL HYDROX/SIMETH ES 30 ML SUSPENSION UDCUP PO PRN (21:12)
[2019-10-20] MEDS: OLANZapine 10 MG RAPDIS TABLET PO SCH (21:26)
[2019-10-20] MEDS: SIMVASTATIN 10 MG TABLET PO SCH (21:26)
[2019-10-20] MEDS: ROPINIRole HCL 1 MG TABLET PO SCH (21:26)
[2019-10-20] MEDS: TraZODone HCL 50 MG TABLET PO SCH (21:26)
[2019-10-21 03:38] VITALS: BP 103/70
[2019-10-21 08:00] VITALS: BP 107/65
[2019-10-21] MEDS: NALTREXONE HCL 50 MG TABLET PO SCH (08:51)
[2019-10-21] MEDS: GABAPENTIN 400 MG CAPSULE PO SCH ×3 (08:51→16:10)
[2019-10-21] MEDS: FLUoxetine HCL 20 MG CAPSULE PO SCH (08:52)
[2019-10-21] MEDS: MULTIVITAMINS WITH MINERALS, THERAPEUTIC TABLET PO SCH (08:58)
[2019-10-21] MEDS: MAG HYDROX/AL HYDROX/SIMETH ES 30 ML SUSPENSION UDCUP PO PRN (09:43)
[2019-10-21 16:00] VITALS: BP 104/62
[2019-10-21] MEDS: ROPINIRole HCL 1 MG TABLET PO SCH (20:02)
[2019-10-21] MEDS: SIMVASTATIN 10 MG TABLET PO SCH (20:02)
[2019-10-21] MEDS: TraZODone HCL 50 MG TABLET PO SCH (20:02)
[2019-10-21] MEDS: OLANZapine 10 MG RAPDIS TABLET PO SCH (20:02)
[2019-10-22 00:12] VITALS: BP 101/65
[2019-10-22 08:00] VITALS: BP 108/62
[2019-10-22] MEDS: MULTIVITAMINS WITH MINERALS, THERAPEUTIC TABLET PO SCH (08:25)
[2019-10-22] MEDS: FLUoxetine HCL 20 MG CAPSULE PO SCH (08:25)
[2019-10-22] MEDS: NALTREXONE HCL 50 MG TABLET PO SCH (09:00)
[2019-10-22] MEDS: GABAPENTIN 400 MG CAPSULE PO SCH ×3 (09:00→16:34)
[2019-10-22 16:48] VITALS: BP 111/72
[2019-10-22] MEDS: SIMVASTATIN 10 MG TABLET PO SCH (21:00)
[2019-10-22] MEDS: OLANZapine 10 MG RAPDIS TABLET PO SCH (21:00)
[2019-10-22] MEDS: ZOLPIDEM TARTRATE 10 MG TABLET PO PRN (21:38)
[2019-10-23] MEDS: MULTIVITAMINS WITH MINERALS, THERAPEUTIC TABLET PO SCH (08:12)
[2019-10-23] MEDS: FLUoxetine HCL 20 MG CAPSULE PO SCH (08:13)
[2019-10-23] MEDS: NALTREXONE HCL 50 MG TABLET PO SCH (08:16)
[2019-10-23] MEDS: GABAPENTIN 400 MG CAPSULE PO SCH ×3 (08:16→16:46)
[2019-10-23 09:40] VITALS: BP 121/72
[2019-10-23 16:00] VITALS: BP 93/60
[2019-10-23] MEDS: OLANZapine 10 MG RAPDIS TABLET PO SCH (21:00)
[2019-10-23] MEDS: SIMVASTATIN 10 MG TABLET PO SCH (21:39)
[2019-10-23] MEDS: ZOLPIDEM TARTRATE 10 MG TABLET PO PRN (21:54)
[2019-10-24 04:10] VITALS: BP 108/62
[2019-10-24 07:31] LABS: BASOPHILS % (AUTO) 0.5 % (0.0-2.0); EOSINOPHILS % (AUTO) 1.2 % (1.0-6.0); HEMOGLOBIN 13.4 g/dL (13.5-17.5); LYMPHOCYTES # (AUTO) 1.2 K/uL (1.0-4.8); MEAN CORPUSCULAR HEMOGLOBIN 30.5 pg (26.0-34.0); MEAN CORPUSCULAR HGB CONC 34.4 G/dL (31.0-37.0); MEAN CORPUSCULAR VOLUME 89 fL (80-100); MONOCYTES # (AUTO) 0.5 K/uL (0.1-1.0); MONOCYTES % (AUTO) 7.8 % (2.0-9.0); NEUTROPHILS % (AUTO) 72.5 % (40.0-70.0); PLATELET COUNT (AUTO) 170 K/uL (150-450); RED CELL DISTRIBUTION WIDTH 14.3 % (11.5-14.5)
[2019-10-24 07:59] LABS: ALANINE AMINOTRANSFERASE 37 U/L (12-78); ALBUMIN 3.8 g/dL (3.4-5.0); ALKALINE PHOSPHATASE 55 U/L (46-116); ANION GAP 11 mmol/L (8-16); ASPARTATE AMINOTRANSFERASE 24 U/L (15-37); BILIRUBIN,TOTAL 0.3 mg/dL (0.1-1.0); CALCIUM, TOTAL 8.7 mg/dL (8.8-10.5); CARBON DIOXIDE 25 mmol/L (22-29); CHLORIDE 103 mmol/L (98-107); CREATININE 1.06 mg/dL (0.60-1.30); GLOMERULAR FILTR. RATE CALC > 60 mL/min (>60); GLUCOSE,RANDOM 105 mg/dL (70-110); POTASSIUM 3.8 mmol/L (3.5-5.1); SODIUM SERUM 139 mmol/L (136-145); TOTAL PROTEIN, SERUM 7.5 g/dL (6.4-8.2); UREA NITROGEN, BLOOD 18 mg/dL (7-18)
[2019-10-24] MEDS: FLUoxetine HCL 20 MG CAPSULE PO SCH (08:01)
[2019-10-24] MEDS: MULTIVITAMINS WITH MINERALS, THERAPEUTIC TABLET PO SCH (08:01)
[2019-10-24] MEDS: NALTREXONE HCL 50 MG TABLET PO SCH (08:02)
[2019-10-24] MEDS: GABAPENTIN 400 MG CAPSULE PO SCH ×4 (08:02→20:18)
[2019-10-24 08:39] VITALS: BP 111/65
[2019-10-24 16:00] VITALS: BP 118/67
[2019-10-24] MEDS: PREGABALIN 25 MG CAPSULE PO SCH (20:18)
[2019-10-24] MEDS: LURASIDONE HCL 40 MG TABLET PO SCH (20:19)
[2019-10-24] MEDS: ZOLPIDEM TARTRATE 10 MG TABLET PO PRN (20:36)
[2019-10-24] MEDS: SIMVASTATIN 10 MG TABLET PO SCH (20:36)
[2019-10-25 01:37] VITALS: BP 113/74
[2019-10-25] MEDS: PARoxetine HCL 20 MG TABLET PO SCH (08:26)
[2019-10-25] MEDS: NALTREXONE HCL 50 MG TABLET PO SCH (09:00)
[2019-10-25] MEDS: PREGABALIN 25 MG CAPSULE PO SCH ×2 (09:00→20:55)
[2019-10-25] MEDS: GABAPENTIN 400 MG CAPSULE PO SCH ×2 (09:00→20:53)
[2019-10-25 09:29] VITALS: BP 134/79
[2019-10-25 16:00] VITALS: BP 110/65
[2019-10-25] MEDS: GABAPENTIN 300 MG CAPSULE PO PRN (19:26)
[2019-10-25] MEDS: SIMVASTATIN 10 MG TABLET PO SCH (20:53)
[2019-10-25] MEDS: ZOLPIDEM TARTRATE 10 MG TABLET PO PRN (20:53)
[2019-10-25] MEDS: LURASIDONE HCL 40 MG TABLET PO SCH (20:55)
[2019-10-25] MEDS: RisperiDONE 0.5 MG TABLET PO SCH (21:00)
[2019-10-25] MEDS: BusPIRone HCL 5 MG TABLET PO SCH (21:00)
[2019-10-26 08:00] VITALS: BP 106/67
[2019-10-26] MEDS: PARoxetine HCL 20 MG TABLET PO SCH (08:04)
[2019-10-26] MEDS: RisperiDONE 0.5 MG TABLET PO SCH ×2 (09:00→21:00)
[2019-10-26] MEDS: GABAPENTIN 400 MG CAPSULE PO SCH ×2 (09:00→21:00)
[2019-10-26] MEDS: PREGABALIN 25 MG CAPSULE PO SCH ×2 (09:00→21:00)
[2019-10-26] MEDS: BusPIRone HCL 5 MG TABLET PO SCH ×2 (09:00→21:00)
[2019-10-26] MEDS: NALTREXONE HCL 50 MG TABLET PO SCH (09:00)
[2019-10-26 16:11] VITALS: BP 112/73
[2019-10-26] MEDS: SIMVASTATIN 10 MG TABLET PO SCH (20:28)
[2019-10-26] MEDS: ZOLPIDEM TARTRATE 10 MG TABLET PO PRN (20:28)
[2019-10-26] MEDS: LURASIDONE HCL 40 MG TABLET PO SCH (21:00)
[2019-10-26] MEDS: ZOLPIDEM TARTRATE 10 MG TABLET PO SCH (21:00)
[2019-10-27] MEDS: GABAPENTIN 300 MG CAPSULE PO PRN ×2 (02:09→16:28)
[2019-10-27] MEDS: BusPIRone HCL 5 MG TABLET PO SCH ×2 (07:54→20:31)
[2019-10-27] MEDS: PREGABALIN 25 MG CAPSULE PO SCH ×2 (07:55→20:31)
[2019-10-27] MEDS: PARoxetine HCL 10 MG TABLET PO SCH (07:55)
[2019-10-27] MEDS: NALTREXONE HCL 50 MG TABLET PO SCH (07:55)
[2019-10-27] MEDS: GABAPENTIN 400 MG CAPSULE PO SCH ×2 (07:55→20:32)
[2019-10-27] MEDS: RisperiDONE 0.5 MG TABLET PO SCH ×2 (07:56→20:32)
[2019-10-27 08:00] VITALS: BP 106/65
[2019-10-27 19:00] VITALS: BP 106/67
[2019-10-27] MEDS: LURASIDONE HCL 40 MG TABLET PO SCH (20:31)
[2019-10-27] MEDS: SIMVASTATIN 10 MG TABLET PO SCH (20:32)
[2019-10-27] MEDS: ZOLPIDEM TARTRATE 10 MG TABLET PO SCH (20:34)
[2019-10-27] MEDS ORDERED: DiphenhydrAMINE HCL 50 MG/ML VIAL IM ONE (20:45)
[2019-10-27] MEDS ORDERED: LORazepam 2 MG/ML VIAL IM ONE (20:45)
[2019-10-27] MEDS ORDERED: PALIPERIDONE PALMITATE 234 MG/1.5 ML SYRINGE IM ONE (20:45)
[2019-10-27] MEDS ORDERED: PALIPERIDONE PALMITATE 117 MG/0.75 ML SYRINGE IM ONE (21:15)
[2019-10-28 06:08] VITALS: BP 116/71
[2019-10-28 08:00] VITALS: BP 127/71
[2019-10-28] MEDS: BusPIRone HCL 5 MG TABLET PO SCH ×2 (08:30→20:28)
[2019-10-28] MEDS: NALTREXONE HCL 50 MG TABLET PO SCH (08:30)
[2019-10-28] MEDS: PARoxetine HCL 10 MG TABLET PO SCH (08:31)
[2019-10-28] MEDS: PREGABALIN 25 MG CAPSULE PO SCH ×2 (08:32→20:29)
[2019-10-28] MEDS: GABAPENTIN 400 MG CAPSULE PO SCH ×2 (08:32→20:29)
[2019-10-28] MEDS: RisperiDONE 0.5 MG TABLET PO SCH ×2 (08:32→20:34)
[2019-10-28 16:00] VITALS: BP 110/60
[2019-10-28] MEDS: SIMVASTATIN 10 MG TABLET PO SCH (20:28)
[2019-10-28] MEDS: ZOLPIDEM TARTRATE 10 MG TABLET PO SCH (20:30)
[2019-10-28] MEDS: LURASIDONE HCL 40 MG TABLET PO SCH (20:32)
[2019-10-29] MEDS: GABAPENTIN 400 MG CAPSULE PO SCH ×2 (08:16→20:30)
[2019-10-29] MEDS: PREGABALIN 25 MG CAPSULE PO SCH ×2 (08:17→20:31)
[2019-10-29] MEDS: PARoxetine HCL 10 MG TABLET PO SCH (08:17)
[2019-10-29] MEDS: NALTREXONE HCL 50 MG TABLET PO SCH (08:18)
[2019-10-29] MEDS: RisperiDONE 0.5 MG TABLET PO SCH ×2 (08:18→20:35)
[2019-10-29] MEDS: BusPIRone HCL 5 MG TABLET PO SCH ×2 (08:19→20:34)
[2019-10-29] MEDS: RisperiDONE 3 MG TABLET PO PRN (15:38)
[2019-10-29 16:12] VITALS: BP 114/74
[2019-10-29] MEDS: GABAPENTIN 300 MG CAPSULE PO PRN (17:38)
[2019-10-29] MEDS: LURASIDONE HCL 40 MG TABLET PO SCH (20:32)
[2019-10-29] MEDS: SIMVASTATIN 10 MG TABLET PO SCH (20:32)
[2019-10-29] MEDS: ZOLPIDEM TARTRATE 10 MG TABLET PO SCH (20:35)
[2019-10-30 04:55] VITALS: BP 120/63
[2019-10-30] MEDS: BusPIRone HCL 5 MG TABLET PO SCH ×2 (08:13→20:46)
[2019-10-30] MEDS: PREGABALIN 25 MG CAPSULE PO SCH ×2 (08:14→20:45)
[2019-10-30] MEDS: NALTREXONE HCL 50 MG TABLET PO SCH (08:15)
[2019-10-30] MEDS: GABAPENTIN 400 MG CAPSULE PO SCH ×2 (08:15→20:45)
[2019-10-30] MEDS: RisperiDONE 0.5 MG TABLET PO SCH ×2 (08:16→20:46)
[2019-10-30] MEDS: PARoxetine HCL 10 MG TABLET PO SCH (08:17)
[2019-10-30] MEDS: RisperiDONE 3 MG TABLET PO PRN (08:18)
[2019-10-30 09:31] VITALS: BP 118/73
[2019-10-30] MEDS ORDERED: LEVOFLOXACIN 500 MG TABLET PO ONE (12:00)
[2019-10-30 13:10] VITALS: BP 120/63
[2019-10-30] MEDS: FINASTERIDE 5 MG TABLET PO SCH (14:56)
[2019-10-30 15:40] LABS: APPEARANCE,URINE CLEAR (CLEAR); BILIRUBIN,URINE NEGATIVE (NEGATIVE); GLUCOSE, URINE (UA) NEGATIVE (NEGATIVE); KETONES,URINE NEGATIVE (NEGATIVE); LEUKOCYTE ESTERASE ,URINE NEGATIVE (NEGATIVE); NITRATE,URINE NEGATIVE (NEGATIVE); OCCULT BLOOD,URINE NEGATIVE (NEGATIVE); PROTEIN,URINE NEGATIVE (NEGATIVE); UROBILINOGEN,URINE 0.2 mg/dL (<=1.0)
[2019-10-30 15:55] LABS: BACTERIA,URINE None Seen /HPF (None Seen); RBC,URINE None Seen /HPF (0-2); WBC,URINE None Seen /HPF (0-5)
[2019-10-30 15:56] LABS: SQUAMOUS EPITHELIAL CELL,UR None Seen /LPF (None Seen)
[2019-10-30 16:00] VITALS: BP 121/76
[2019-10-30] MEDS: GABAPENTIN 300 MG CAPSULE PO PRN (17:16)
[2019-10-30] MEDS ORDERED: DiphenhydrAMINE HCL 50 MG/ML VIAL IM ONE (18:00)
[2019-10-30] MEDS ORDERED: LORazepam 2 MG/ML VIAL IM ONE (18:00)
[2019-10-30] MEDS: ZOLPIDEM TARTRATE 10 MG TABLET PO SCH (20:45)
[2019-10-30] MEDS: SIMVASTATIN 10 MG TABLET PO SCH (20:46)
[2019-10-30] MEDS: TAMSULOSIN HCL 0.4 MG CAPSULE PO SCH (20:46)
[2019-10-30] MEDS: LURASIDONE HCL 40 MG TABLET PO SCH (20:47)
[2019-10-31] MEDS ORDERED: PALIPERIDONE PALMITATE 156 MG/ML SYRINGE IM ONE (09:00)
[2019-10-31] MEDS: PREGABALIN 25 MG CAPSULE PO SCH ×2 (09:12→20:10)
[2019-10-31] MEDS: GABAPENTIN 400 MG CAPSULE PO SCH (09:12)
[2019-10-31] MEDS: BusPIRone HCL 5 MG TABLET PO SCH ×2 (09:13→20:10)
[2019-10-31] MEDS: NALTREXONE HCL 50 MG TABLET PO SCH (09:13)
[2019-10-31] MEDS: PARoxetine HCL 10 MG TABLET PO SCH (09:14)
[2019-10-31] MEDS: FINASTERIDE 5 MG TABLET PO SCH (09:14)
[2019-10-31] MEDS: RisperiDONE 0.5 MG TABLET PO SCH (09:15)
[2019-10-31 10:14] VITALS: BP 114/66
[2019-10-31] MEDS: LEVOFLOXACIN 500 MG TABLET PO SCH (13:49)
[2019-10-31 16:00] VITALS: BP 138/84
[2019-10-31] MEDS: GABAPENTIN 300 MG CAPSULE PO PRN (16:44)
[2019-10-31] MEDS: RisperiDONE 3 MG TABLET PO PRN (16:44)
[2019-10-31] MEDS ORDERED: LORazepam 2 MG/ML VIAL IM ONE (19:15)
[2019-10-31] MEDS: ZOLPIDEM TARTRATE 10 MG TABLET PO SCH (20:17)
[2019-10-31] MEDS: TAMSULOSIN HCL 0.4 MG CAPSULE PO SCH (20:17)
[2019-10-31] MEDS: SIMVASTATIN 10 MG TABLET PO SCH (20:17)
[2019-11-01 08:00] VITALS: BP 114/61
[2019-11-01] MEDS: PREGABALIN 25 MG CAPSULE PO SCH ×3 (08:15→16:26)
[2019-11-01] MEDS: LEVOFLOXACIN 500 MG TABLET PO SCH (08:15)
[2019-11-01] MEDS: GABAPENTIN 400 MG CAPSULE PO SCH ×3 (08:15→16:27)
[2019-11-01] MEDS: NALTREXONE HCL 50 MG TABLET PO SCH (08:15)
[2019-11-01] MEDS: RisperiDONE 0.5 MG TABLET PO SCH ×3 (08:15→16:26)
[2019-11-01] MEDS: FINASTERIDE 5 MG TABLET PO SCH (08:16)
[2019-11-01] MEDS: PARoxetine HCL 20 MG TABLET PO SCH (08:16)
[2019-11-01 17:14] VITALS: BP 118/70
[2019-11-01] MEDS: TAMSULOSIN HCL 0.4 MG CAPSULE PO SCH (21:42)
[2019-11-01] MEDS: SIMVASTATIN 10 MG TABLET PO SCH (21:42)
[2019-11-01] MEDS: ZOLPIDEM TARTRATE 10 MG TABLET PO SCH (21:42)
[2019-11-02] MEDS: LORazepam 1 MG TABLET PO PRN (05:19)
[2019-11-02 08:00] VITALS: BP 122/66
[2019-11-02] MEDS: FINASTERIDE 5 MG TABLET PO SCH (08:17)
[2019-11-02] MEDS: LEVOFLOXACIN 500 MG TABLET PO SCH (08:17)
[2019-11-02] MEDS: GABAPENTIN 400 MG CAPSULE PO SCH ×3 (08:18→16:05)
[2019-11-02] MEDS: RisperiDONE 0.5 MG TABLET PO SCH ×3 (08:18→16:05)
[2019-11-02] MEDS: PARoxetine HCL 20 MG TABLET PO SCH (08:18)
[2019-11-02] MEDS: NALTREXONE HCL 50 MG TABLET PO SCH (08:19)
[2019-11-02] MEDS: PREGABALIN 25 MG CAPSULE PO SCH ×3 (08:19→16:05)
[2019-11-02 16:13] VITALS: BP 110/69
[2019-11-02] MEDS: SIMVASTATIN 10 MG TABLET PO SCH (20:39)
[2019-11-02] MEDS: ZOLPIDEM TARTRATE 10 MG TABLET PO SCH (20:39)
[2019-11-02] MEDS: TAMSULOSIN HCL 0.4 MG CAPSULE PO SCH (20:39)
[2019-11-02] MEDS: RisperiDONE 2 MG TABLET PO SCH (21:00)
[2019-11-03] MEDS: GABAPENTIN 400 MG CAPSULE PO SCH ×3 (08:20→16:54)
[2019-11-03] MEDS: NALTREXONE HCL 50 MG TABLET PO SCH (08:20)
[2019-11-03] MEDS: FINASTERIDE 5 MG TABLET PO SCH (08:20)
[2019-11-03] MEDS: PARoxetine HCL 20 MG TABLET PO SCH (08:20)
[2019-11-03] MEDS: PREGABALIN 25 MG CAPSULE PO SCH ×3 (08:20→16:54)
[2019-11-03 08:44] VITALS: BP 124/75
[2019-11-03] MEDS: GABAPENTIN 300 MG CAPSULE PO PRN ×2 (09:46→20:42)
[2019-11-03] MEDS: LORazepam 1 MG TABLET PO PRN (10:44)
[2019-11-03 16:00] VITALS: BP 112/70
[2019-11-03] MEDS: TAMSULOSIN HCL 0.4 MG CAPSULE PO SCH (20:40)
[2019-11-03] MEDS: SIMVASTATIN 10 MG TABLET PO SCH (20:40)
[2019-11-03] MEDS: RisperiDONE 2 MG TABLET PO SCH (20:40)
[2019-11-03] MEDS: ZOLPIDEM TARTRATE 10 MG TABLET PO SCH (20:42)
[2019-11-04] MEDS: GABAPENTIN 300 MG CAPSULE PO PRN ×2 (04:32→10:52)
[2019-11-04] MEDS: ACETAMINOPHEN 325 MG TABLET PO PRN (04:32)
[2019-11-04 04:33] VITALS: BP 126/79
[2019-11-04] MEDS: NALTREXONE HCL 50 MG TABLET PO SCH (08:12)
[2019-11-04] MEDS: PREGABALIN 25 MG CAPSULE PO SCH ×3 (08:13→16:33)
[2019-11-04] MEDS: PARoxetine HCL 20 MG TABLET PO SCH ×3 (08:13→16:33)
[2019-11-04] MEDS: GABAPENTIN 400 MG CAPSULE PO SCH ×3 (08:13→16:33)
[2019-11-04] MEDS: FINASTERIDE 5 MG TABLET PO SCH (08:14)
[2019-11-04] MEDS: RisperiDONE 0.5 MG TABLET PO SCH ×3 (08:15→16:33)
[2019-11-04] MEDS: TraZODone HCL 50 MG TABLET PO SCH ×4 (08:15→20:35)
[2019-11-04] MEDS: LORazepam 1 MG TABLET PO PRN (10:52)
[2019-11-04 11:00] VITALS: BP 114/56
[2019-11-04 16:00] VITALS: BP 116/73
[2019-11-04] MEDS ORDERED: PALIPERIDONE PALMITATE 39 MG/0.25 ML SYRINGE IM ONE (18:45)
[2019-11-04] MEDS: ZOLPIDEM TARTRATE 10 MG TABLET PO SCH (20:34)
[2019-11-04] MEDS: RisperiDONE 2 MG TABLET PO SCH (20:35)
[2019-11-04] MEDS: SIMVASTATIN 10 MG TABLET PO SCH (20:35)
[2019-11-04] MEDS: TAMSULOSIN HCL 0.4 MG CAPSULE PO SCH (20:36)
[2019-11-05] MEDS: GABAPENTIN 400 MG CAPSULE PO SCH ×3 (08:25→16:10)
[2019-11-05] MEDS: NALTREXONE HCL 50 MG TABLET PO SCH (08:25)
[2019-11-05] MEDS: FINASTERIDE 5 MG TABLET PO SCH (08:25)
[2019-11-05] MEDS: PREGABALIN 25 MG CAPSULE PO SCH ×3 (08:25→16:11)
[2019-11-05] MEDS: PARoxetine HCL 20 MG TABLET PO SCH ×3 (08:26→16:10)
[2019-11-05] MEDS: TraZODone HCL 50 MG TABLET PO SCH ×4 (08:26→20:27)
[2019-11-05] MEDS: RisperiDONE 0.5 MG TABLET PO SCH ×3 (08:26→16:11)
[2019-11-05 09:25] VITALS: BP 111/54
[2019-11-05] MEDS: RisperiDONE 1 MG TABLET PO PRN (10:21)
[2019-11-05] MEDS: LORazepam 1 MG TABLET PO PRN (10:21)
[2019-11-05 11:35] LABS: GLUCOMETER DEV NAME(LOC) 3EX.; GLUCOSE,POINT OF CARE 83 MG/DL (70-110)
[2019-11-05 16:00] VITALS: BP 100/62
[2019-11-05] MEDS: ZOLPIDEM TARTRATE 10 MG TABLET PO SCH (20:27)
[2019-11-05] MEDS: RisperiDONE 2 MG TABLET PO SCH (20:27)
[2019-11-05] MEDS: TAMSULOSIN HCL 0.4 MG CAPSULE PO SCH (20:27)
[2019-11-05] MEDS: SIMVASTATIN 10 MG TABLET PO SCH (20:27)
[2019-11-06] MEDS: PARoxetine HCL 20 MG TABLET PO SCH ×3 (07:59→16:19)
[2019-11-06] MEDS: NALTREXONE HCL 50 MG TABLET PO SCH (07:59)
[2019-11-06] MEDS: GABAPENTIN 400 MG CAPSULE PO SCH ×3 (07:59→16:18)
[2019-11-06] MEDS: RisperiDONE 0.5 MG TABLET PO SCH ×3 (07:59→16:27)
[2019-11-06] MEDS: PREGABALIN 25 MG CAPSULE PO SCH ×3 (07:59→16:27)
[2019-11-06] MEDS: FINASTERIDE 5 MG TABLET PO SCH (08:00)
[2019-11-06] MEDS: TraZODone HCL 50 MG TABLET PO SCH ×4 (08:00→20:42)
[2019-11-06] MEDS: BISACODYL 5 MG EC TABLET PO PRN (08:01)
[2019-11-06 09:00] VITALS: BP 110/65
[2019-11-06] MEDS: GABAPENTIN 300 MG CAPSULE PO PRN (14:13)
[2019-11-06] MEDS: LORazepam 1 MG TABLET PO PRN (14:13)
[2019-11-06 16:00] VITALS: BP 95/53
[2019-11-06] MEDS: SIMVASTATIN 10 MG TABLET PO SCH (20:42)
[2019-11-06] MEDS: ZOLPIDEM TARTRATE 10 MG TABLET PO SCH (20:42)
[2019-11-06] MEDS: RisperiDONE 2 MG TABLET PO SCH (20:42)
[2019-11-06] MEDS: TAMSULOSIN HCL 0.4 MG CAPSULE PO SCH (20:42)
[2019-11-07 08:00] VITALS: BP 107/72
[2019-11-07] MEDS: GABAPENTIN 400 MG CAPSULE PO SCH ×3 (08:11→17:50)
[2019-11-07] MEDS: PREGABALIN 25 MG CAPSULE PO SCH ×3 (08:11→17:50)
[2019-11-07] MEDS: NALTREXONE HCL 50 MG TABLET PO SCH (08:12)
[2019-11-07] MEDS: FINASTERIDE 5 MG TABLET PO SCH (08:12)
[2019-11-07] MEDS: TraZODone HCL 50 MG TABLET PO SCH ×4 (08:12→21:44)
[2019-11-07] MEDS: PARoxetine HCL 20 MG TABLET PO SCH ×3 (08:13→17:50)
[2019-11-07] MEDS: RisperiDONE 0.5 MG TABLET PO SCH ×3 (08:13→17:50)
[2019-11-07] MEDS: BISACODYL 5 MG EC TABLET PO PRN (08:43)
[2019-11-07] MEDS: LORazepam 1 MG TABLET PO PRN (10:19)
[2019-11-07] MEDS: RisperiDONE 1 MG TABLET PO PRN (10:20)
[2019-11-07 16:15] VITALS: BP 119/71
[2019-11-07] MEDS: MAGNESIUM HYDROXIDE SUSPENSION 30 ML UDCUP PO PRN (17:51)
[2019-11-07] MEDS ORDERED: DiphenhydrAMINE HCL 25 MG CAPSULE PO ONE (19:00)
[2019-11-07] MEDS: SIMVASTATIN 10 MG TABLET PO SCH (21:43)
[2019-11-07] MEDS: TAMSULOSIN HCL 0.4 MG CAPSULE PO SCH (21:44)
[2019-11-07] MEDS: RisperiDONE 2 MG TABLET PO SCH (21:44)
[2019-11-07] MEDS: ZOLPIDEM TARTRATE 10 MG TABLET PO SCH (21:44)
[2019-11-08 04:50] VITALS: BP 114/74
[2019-11-08] MEDS: ACETAMINOPHEN 325 MG TABLET PO PRN (04:53)
[2019-11-08 08:00] VITALS: BP 105/63
[2019-11-08] MEDS: DiphenhydrAMINE HCL 25 MG/10 ML ELIXIR UDCUP PO SCH ×3 (08:22→16:50)
[2019-11-08] MEDS: FINASTERIDE 5 MG TABLET PO SCH (08:23)
[2019-11-08] MEDS: TraZODone HCL 50 MG TABLET PO SCH ×4 (08:23→20:28)
[2019-11-08] MEDS: PREGABALIN 25 MG CAPSULE PO SCH ×3 (08:23→16:49)
[2019-11-08] MEDS: GABAPENTIN 400 MG CAPSULE PO SCH ×3 (08:23→16:42)
[2019-11-08] MEDS: PARoxetine HCL 20 MG TABLET PO SCH ×3 (08:24→16:40)
[2019-11-08] MEDS: RisperiDONE 0.5 MG TABLET PO SCH ×3 (08:25→16:41)
[2019-11-08] MEDS: NALTREXONE HCL 50 MG TABLET PO SCH (08:25)
[2019-11-08 16:39] VITALS: BP 103/74
[2019-11-08] MEDS: ZOLPIDEM TARTRATE 10 MG TABLET PO SCH (20:28)
[2019-11-08] MEDS: SIMVASTATIN 10 MG TABLET PO SCH (20:28)
[2019-11-08] MEDS: RisperiDONE 2 MG TABLET PO SCH (20:28)
[2019-11-08] MEDS: TAMSULOSIN HCL 0.4 MG CAPSULE PO SCH (20:28)
[2019-11-09 04:50] VITALS: BP 123/75
[2019-11-09] MEDS: ACETAMINOPHEN 325 MG TABLET PO PRN (04:53)
[2019-11-09 08:00] VITALS: BP 100/60
[2019-11-09] MEDS: TraZODone HCL 50 MG TABLET PO SCH ×3 (08:14→16:47)
[2019-11-09] MEDS: RisperiDONE 0.5 MG TABLET PO SCH ×3 (08:15→16:48)
[2019-11-09] MEDS: PREGABALIN 25 MG CAPSULE PO SCH ×3 (08:15→16:50)
[2019-11-09] MEDS: PARoxetine HCL 20 MG TABLET PO SCH ×3 (08:16→16:50)
[2019-11-09] MEDS: GABAPENTIN 400 MG CAPSULE PO SCH ×3 (08:16→16:49)
[2019-11-09] MEDS: NALTREXONE HCL 50 MG TABLET PO SCH (08:16)
[2019-11-09] MEDS: DiphenhydrAMINE HCL 25 MG/10 ML ELIXIR UDCUP PO SCH ×3 (08:17→16:47)
[2019-11-09] MEDS: FINASTERIDE 5 MG TABLET PO SCH (08:17)
[2019-11-09] MEDS ORDERED: IBUPROFEN 600 MG TABLET PO PRN (10:45)
[2019-11-09] MEDS ORDERED: ACETAMINOPHEN 325 MG TABLET PO PRN (10:45)
[2019-11-09] MEDS ORDERED: BACLOFEN 10 MG TABLET PO PRN (14:45)
[2019-11-09 16:15] VITALS: BP 103/70
[2019-11-09] MEDS: BISACODYL 5 MG EC TABLET PO PRN (18:09)
[2019-11-09] MEDS: TAMSULOSIN HCL 0.4 MG CAPSULE PO SCH (21:45)
[2019-11-09] MEDS: ZOLPIDEM TARTRATE 10 MG TABLET PO SCH (21:45)
[2019-11-09] MEDS: TraZODone HCL 100 MG TABLET PO SCH (21:46)
[2019-11-09] MEDS: RisperiDONE 2 MG TABLET PO SCH (21:46)
[2019-11-09] MEDS: SIMVASTATIN 10 MG TABLET PO SCH (21:46)
[2019-11-10 08:00] VITALS: BP 111/65
[2019-11-10] MEDS: MAGNESIUM HYDROXIDE SUSPENSION 30 ML UDCUP PO PRN (08:20)
[2019-11-10] MEDS: PREGABALIN 25 MG CAPSULE PO SCH ×2 (08:22→13:06)
[2019-11-10] MEDS: GABAPENTIN 400 MG CAPSULE PO SCH ×3 (08:22→17:00)
[2019-11-10] MEDS: PARoxetine HCL 20 MG TABLET PO SCH ×3 (08:22→17:00)
[2019-11-10] MEDS: TraZODone HCL 50 MG TABLET PO SCH ×2 (08:23→13:07)
[2019-11-10] MEDS: DiphenhydrAMINE HCL 25 MG/10 ML ELIXIR UDCUP PO SCH ×3 (08:24→17:00)
[2019-11-10] MEDS: RisperiDONE 0.5 MG TABLET PO SCH ×2 (08:25→13:08)
[2019-11-10] MEDS: FINASTERIDE 5 MG TABLET PO SCH (08:25)
[2019-11-10] MEDS: NALTREXONE HCL 50 MG TABLET PO SCH (08:25)
[2019-11-10 16:00] VITALS: BP 98/60
[2019-11-10] MEDS ORDERED: RISP2TAB76 PO (18:58)
[2019-11-10] MEDS ORDERED: RISP0.5T61 PO (18:58)
[2019-11-10] MEDS ORDERED: GABA-1201 PO (18:58)
[2019-11-10] MEDS ORDERED: TRAZ-257 PO (18:58)
[2019-11-10] MEDS ORDERED: DIPH2510L PO (18:58)
[2019-11-10] MEDS ORDERED: PARO-37 PO (18:58)
[2019-11-10 21:00] VITALS: BP 90/59
[2019-11-10] MEDS: ZOLPIDEM TARTRATE 10 MG TABLET PO SCH (21:00)
[2019-11-10] MEDS: RisperiDONE 2 MG TABLET PO SCH (21:00)
[2019-11-10] MEDS: TraZODone HCL 100 MG TABLET PO SCH (21:00)
[2019-11-10] MEDS: TAMSULOSIN HCL 0.4 MG CAPSULE PO SCH (21:00)
[2019-11-10] MEDS: SIMVASTATIN 10 MG TABLET PO SCH (21:47)
[2019-11-11 08:00] VITALS: BP 98/59
[2019-11-11] MEDS: RisperiDONE 0.5 MG TABLET PO SCH ×3 (08:38→17:21)
[2019-11-11] MEDS: GABAPENTIN 400 MG CAPSULE PO SCH ×3 (08:38→17:21)
[2019-11-11] MEDS: NALTREXONE HCL 50 MG TABLET PO SCH (08:38)
[2019-11-11] MEDS: PARoxetine HCL 20 MG TABLET PO SCH ×3 (08:38→17:21)
[2019-11-11] MEDS: FINASTERIDE 5 MG TABLET PO SCH (08:39)
[2019-11-11] MEDS: DiphenhydrAMINE HCL 25 MG/10 ML ELIXIR UDCUP PO SCH ×3 (08:39→17:21)
[2019-11-11] MEDS ORDERED: TAMS-13 PO (09:59)
[2019-11-11] MEDS ORDERED: FINA-27 PO (09:59)
[2019-11-11] MEDS ORDERED: NALT50TA6 PO (09:59)
[2019-11-11] MEDS ORDERED: [UNRECOGNIZED DRUG - CODE] PO (10:04)
[2019-11-11 17:08] VITALS: BP 107/72
[2019-11-11] MEDS: TraZODone HCL 100 MG TABLET PO SCH (21:19)
[2019-11-11] MEDS: TAMSULOSIN HCL 0.4 MG CAPSULE PO SCH (21:19)
[2019-11-11] MEDS: SIMVASTATIN 10 MG TABLET PO SCH (21:20)
[2019-11-11] MEDS: ZOLPIDEM TARTRATE 10 MG TABLET PO SCH (21:20)
[2019-11-11] MEDS: RisperiDONE 2 MG TABLET PO SCH (21:20)
[2019-11-12 08:00] VITALS: BP 105/65
[2019-11-12] MEDS: DiphenhydrAMINE HCL 25 MG/10 ML ELIXIR UDCUP PO SCH ×3 (08:15→13:25)
[2019-11-12] MEDS: PARoxetine HCL 20 MG TABLET PO SCH ×3 (08:16→13:25)
[2019-11-12] MEDS: NALTREXONE HCL 50 MG TABLET PO SCH (08:16)
[2019-11-12] MEDS: RisperiDONE 0.5 MG TABLET PO SCH ×3 (08:16→13:25)
[2019-11-12] MEDS: FINASTERIDE 5 MG TABLET PO SCH (08:16)
[2019-11-12] MEDS: GABAPENTIN 400 MG CAPSULE PO SCH ×3 (08:16→13:25)
[2019-11-12] MEDS: LORazepam 1 MG TABLET PO PRN (08:17)
[2019-11-24] MEDS ORDERED: PALIPERIDONE PALMITATE 117 MG/0.75 ML SYRINGE IM SCH (09:00)
== END 2019-11-12 13:25 | disposition home or self-care (01) | DRG 885 ==
LOC: EMS 14:25 → 3EX 17:42
PROVIDERS: ADMIT Psychiatry & Neurology Psychiatry; ATTEND Psychiatry & Neurology Psychiatry
DX: F25.9 Schizoaffective disorder, unspecified (principal); B19.20 Unspecified viral hepatitis C without hepatic coma; E87.0 Hyperosmolality and hypernatremia; R45.851 Suicidal ideations; N39.0 Urinary tract infection, site not specified; F41.0 Panic disorder [episodic paroxysmal anxiety]; E78.5 Hyperlipidemia, unspecified; I10 Essential (primary) hypertension; M19.90 Unspecified osteoarthritis, unspecified site; D64.9 Anemia, unspecified; G62.9 Polyneuropathy, unspecified; R73.03 Prediabetes; F17.210 Nicotine dependence, cigarettes, uncomplicated; Z88.8 Allergy status to other drugs, medicaments and biological substances; Z91.19 Patient's noncompliance with other medical treatment and regimen; K21.9 Gastro-esophageal reflux disease without esophagitis; N40.0 Benign prostatic hyperplasia without lower urinary tract symptoms; R33.8 Other retention of urine; Z79.899 Other long term (current) drug therapy; G24.9 Dystonia, unspecified; K59.00 Constipation, unspecified; C61 Malignant neoplasm of prostate; E86.0 Dehydration; R79.89 Other specified abnormal findings of blood chemistry; R41.843 Psychomotor deficit; Z88.2 Allergy status to sulfonamides
CPT/HCPCS: 71101; 82105; 83036; 83735; 84439; 84443; 86592; 87081; G0378; G0480; J1200; J2060

== ENCOUNTER → 2022-04-28 | Outpatient (CLI) | payer MEDICARE, OTHER ==
[~2022-04-28] MED LIST changes: -BENZ1TAB10 PO; +DIPH-1139 PO; -DIVA-80 PO; +FINA-27 PO; +GABA-1201 PO; -MIRT-89 PO; +NALT50TA6 PO; +PARO-37 PO; +RISP0.5T61 PO; +RISP2TAB76 PO; -RISP4TAB73 PO; +TAMS-13 PO
[2022-04-28 15:04] LABS: CHOL/HDL RATIO 7.5 (4.2-7.3)
[2022-04-28 15:12] LABS: HEMOGLOBIN A1C 5.6 % (3.8-5.6)
== END | disposition home or self-care (01) ==
LOC: LABMN 15:15
PROVIDERS: ATTEND Psychiatry & Neurology Psychiatry
DX: Z13.1 Encounter for screening for diabetes mellitus (principal); F25.9 Schizoaffective disorder, unspecified; R73.9 Hyperglycemia, unspecified; E78.5 Hyperlipidemia, unspecified
CPT/HCPCS: 80061; 82947; 83036

== ENCOUNTER → 2022-08-07 | Outpatient (CLI) | payer MEDICARE, OTHER ==
[~2022-08-07] MED LIST changes: +ATOR40TA28 PO; +ATOR40TA71 PO; +CLOZ100T11 PO; +CLOZ100T68 PO; +CLOZ25TA10 PO; +DEUT9TAB PO; -DIPH-1139 PO; -FINA-27 PO; -GABA-1201 PO; -NALT50TA6 PO; +PANT-31 PO; +PARO10TA71 PO; +PARO10TA89 PO; +PROP10TA72 PO; +PROP20TA18 PO; -RISP0.5T61 PO; -RISP2TAB76 PO; +ROPI0.2535 PO; +ROPI1TAB46 PO; -SIMV-259 PO; -TAMS-13 PO; -TRAZ-257 PO
[2022-08-07 16:12] LABS: BASOPHILS % (AUTO) 0.8 % (0.0-2.0); EOSINOPHILS % (AUTO) 0.9 % (1.0-6.0); HEMATOCRIT 39.4 % (41-53); HEMOGLOBIN 13.1 g/dL (13.5-17.5); LYMPHOCYTES # (AUTO) 1.4 K/uL (1.0-4.8); LYMPHOCYTES % (AUTO) 10.8 % (22.0-44.0); MEAN CORPUSCULAR HEMOGLOBIN 29.6 pg (26.0-34.0); MEAN CORPUSCULAR HGB CONC 33.3 G/dL (31.0-37.0); MEAN CORPUSCULAR VOLUME 89 fL (80-100); MONOCYTES # (AUTO) 0.7 K/uL (0.1-1.0); MONOCYTES % (AUTO) 5.5 % (2.0-9.0); NEUTROPHILS # (AUTO) 10.7 K/uL (1.8-7.7); PLATELET COUNT (AUTO) 222 K/uL (150-450); RED BLOOD CELL COUNT(AUTO) 4.43 MIL/uL (4.50-5.90); RED CELL DISTRIBUTION WIDTH 13.9 % (11.5-14.5)
== END | disposition home or self-care (01) ==
LOC: LABMN 17:29
PROVIDERS: ATTEND Psychiatry & Neurology Psychiatry
DX: F25.1 Schizoaffective disorder, depressive type (principal)
CPT/HCPCS: 85025

== ENCOUNTER 2022-08-12 13:41 | Inpatient (IN) | payer MEDICARE, MEDICAID ==
[~2022-08-12] VITALS: Ht 175.3 cm; Wt 87.5 kg
[~2022-08-12 13:41] MED LIST changes: -ATOR40TA28 PO; -ATOR40TA71 PO; -CLOZ100T68 PO; -DEUT9TAB PO; -PANT-31 PO; -PARO10TA71 PO; -PARO10TA89 PO; -PROP20TA18 PO
[2022-08-12] MEDS ORDERED: HydrOXYzine PAMOATE 50 MG CAPSULE PO PRN (17:15)
[2022-08-12] MEDS ORDERED: MAG HYDROX/AL HYDROX/SIMETH ES 30 ML SUSPENSION UDCUP PO PRN (17:15)
[2022-08-12] MEDS ORDERED: ZOLPIDEM TARTRATE 10 MG TABLET PO PRN (17:15)
[2022-08-12] MEDS ORDERED: GuaiFENesin/D-METHORPHAN [SUGAR-FREE] 200-20MG/10 ML SYRUP UDCUP PO PRN (17:15)
[2022-08-12] MEDS ORDERED: PROMETHAZINE HCL 25 MG TABLET PO PRN (17:15)
[2022-08-12] MEDS ORDERED: MAGNESIUM HYDROXIDE SUSPENSION 30 ML UDCUP PO PRN (17:15)
[2022-08-12] MEDS ORDERED: GABAPENTIN 300 MG CAPSULE PO PRN (17:15)
[2022-08-12] MEDS ORDERED: ACETAMINOPHEN 325 MG TABLET PO PRN (17:15)
[2022-08-12] MEDS ORDERED: LOPERAMIDE HCL 2 MG CAPSULE PO PRN (17:15)
[2022-08-12] MEDS ORDERED: OLANZapine 5 MG RAPDIS TABLET PO PRN (17:15)
[2022-08-12] MEDS ORDERED: DEUT9TAB PO (18:35)
[2022-08-12] MEDS: PROPRANOLOL HCL 10 MG TABLET PO SCH (18:51)
[2022-08-12 18:52] VITALS: BP 110/72
[2022-08-12] MEDS: CloZAPine 100 MG TABLET PO SCH (21:01)
[2022-08-12] MEDS: ATORVASTATIN CALCIUM 40 MG TABLET PO SCH (21:01)
[2022-08-12] MEDS: MELATONIN 5 MG TABLET PO SCH (21:01)
[2022-08-12] MEDS: ROPINIRole HCL 1 MG TABLET PO SCH (21:01)
[2022-08-12 23:04] VITALS: BP 115/81
[2022-08-13] MEDS: PARoxetine HCL 10 MG TABLET PO SCH ×2 (08:04→16:30)
[2022-08-13] MEDS: ROPINIRole HCL 0.25 MG TABLET PO SCH ×2 (08:04→12:58)
[2022-08-13] MEDS: PANTOPRAZOLE SODIUM 40 MG DR TABLET PO SCH (08:04)
[2022-08-13] MEDS: CloZAPine 100 MG TABLET PO SCH ×2 (08:05→12:57)
[2022-08-13] MEDS: PROPRANOLOL HCL 10 MG TABLET PO SCH ×2 (08:05→16:30)
[2022-08-13 08:08] LABS: BASOPHILS % (AUTO) 0.4 % (0.0-2.0); EOSINOPHILS % (AUTO) 3.5 % (1.0-6.0); HEMATOCRIT 36.6 % (41-53); HEMOGLOBIN 12.4 g/dL (13.5-17.5); LYMPHOCYTES # (AUTO) 1.9 K/uL (1.0-4.8); LYMPHOCYTES % (AUTO) 22.8 % (22.0-44.0); MEAN CORPUSCULAR HEMOGLOBIN 30.1 pg (26.0-34.0); MEAN CORPUSCULAR HGB CONC 33.8 G/dL (31.0-37.0); MEAN CORPUSCULAR VOLUME 89 fL (80-100); MONOCYTES # (AUTO) 0.7 K/uL (0.1-1.0); MONOCYTES % (AUTO) 8.7 % (2.0-9.0); NEUTROPHILS # (AUTO) 5.4 K/uL (1.8-7.7); NEUTROPHILS % (AUTO) 64.6 % (40.0-70.0); PLATELET COUNT (AUTO) 224 K/uL (150-450); RED BLOOD CELL COUNT(AUTO) 4.12 MIL/uL (4.50-5.90); RED CELL DISTRIBUTION WIDTH 13.6 % (11.5-14.5)
[2022-08-13 08:20] VITALS: BP 110/73
[2022-08-13 08:28] LABS: ALANINE AMINOTRANSFERASE 58 U/L (12-78); ALKALINE PHOSPHATASE 93 U/L (46-116); ANION GAP 8 mmol/L (8-16); ASPARTATE AMINOTRANSFERASE 22 U/L (15-37); BILIRUBIN,TOTAL 0.2 mg/dL (0.1-1.0); CALCIUM, TOTAL 8.4 mg/dL (8.8-10.5); CARBON DIOXIDE 28 mmol/L (22-29); CHLORIDE 106 mmol/L (98-107); CREATININE 0.98 mg/dL (0.60-1.30); GLOMERULAR FILTR. RATE CALC > 60 mL/min (>60); GLUCOSE,RANDOM 103 mg/dL (70-110); POTASSIUM 4.3 mmol/L (3.5-5.1); SODIUM SERUM 142 mmol/L (136-145); TOTAL PROTEIN, SERUM 6.4 g/dL (6.4-8.2); UREA NITROGEN, BLOOD 18 mg/dL (7-18)
[2022-08-13 20:29] VITALS: BP 136/75
[2022-08-13] MEDS ORDERED: CloZAPine 100 MG TABLET PO SCH (21:00)
[2022-08-13] MEDS: ROPINIRole HCL 1 MG TABLET PO SCH (21:23)
[2022-08-13] MEDS: MELATONIN 5 MG TABLET PO SCH (21:23)
[2022-08-13] MEDS: ATORVASTATIN CALCIUM 40 MG TABLET PO SCH (21:23)
[2022-08-13] MEDS ORDERED: PARO10TA71 PO (22:08)
[2022-08-13] MEDS ORDERED: PROP10TA72 PO (22:08)
[2022-08-13] MEDS ORDERED: ROPI1TAB46 PO (22:08)
[2022-08-13] MEDS ORDERED: CLOZ100T11 PO (22:08)
[2022-08-13] MEDS ORDERED: ROPI0.2535 PO (22:08)
[2022-08-13] MEDS ORDERED: CLOZ25TA10 PO (22:08)
[2022-08-14 08:16] VITALS: BP 130/70
[2022-08-14] MEDS ORDERED: ROPINIRole HCL 0.25 MG TABLET PO SCH (09:00)
[2022-08-14] MEDS ORDERED: CloZAPine 25 MG TABLET PO SCH (09:00)
[2022-08-14] MEDS: PANTOPRAZOLE SODIUM 40 MG DR TABLET PO SCH (09:48)
[2022-08-14] MEDS: PROPRANOLOL HCL 10 MG TABLET PO SCH (09:49)
[2022-08-14] MEDS: PARoxetine HCL 10 MG TABLET PO SCH (09:49)
[2022-08-14] MEDS ORDERED: CLOZ100T68 PO (10:00)
[2022-08-14] MEDS ORDERED: ROPI0.2535 PO (10:02)
[2022-08-14] MEDS ORDERED: PROP20TA18 PO (10:03)
[2022-08-14] MEDS ORDERED: PARO10TA89 PO (10:04)
[2022-08-14] MEDS ORDERED: ATOR40TA28 PO (11:05)
[2022-08-14] MEDS ORDERED: PANT-31 PO ×2 (11:05→11:53)
[2022-08-14] MEDS ORDERED: ATOR40TA71 PO (11:53)
== END 2022-08-14 14:20 | disposition home or self-care (01) | DRG 885 ==
LOC: B2X 17:54
PROVIDERS: ADMIT Psychiatry & Neurology Psychiatry; ATTEND Psychiatry & Neurology Psychiatry
PROC: GZ51ZZZ Individual Psychotherapy, Behavioral (ICD-10-PCS; principal; 2022-08-12)
PROC: GZHZZZZ Group Psychotherapy (ICD-10-PCS; 2022-08-12)
DX: F25.9 Schizoaffective disorder, unspecified (principal); F06.30 Mood disorder due to known physiological condition, unspecified; B19.20 Unspecified viral hepatitis C without hepatic coma; R45.851 Suicidal ideations; D64.9 Anemia, unspecified; E78.5 Hyperlipidemia, unspecified; F17.200 Nicotine dependence, unspecified, uncomplicated; F41.9 Anxiety disorder, unspecified; G25.81 Restless legs syndrome; J44.9 Chronic obstructive pulmonary disease, unspecified; N40.0 Benign prostatic hyperplasia without lower urinary tract symptoms; G24.01 Drug induced subacute dyskinesia; F19.21 Other psychoactive substance dependence, in remission; K21.9 Gastro-esophageal reflux disease without esophagitis; T50.905A Adverse effect of unspecified drugs, medicaments and biological substances, initial encounter; F40.01 Agoraphobia with panic disorder; Z55.9 Problems related to education and literacy, unspecified; Z59.9 Problem related to housing and economic circumstances, unspecified; Z63.9 Problem related to primary support group, unspecified; Z65.3 Problems related to other legal circumstances; Z80.3 Family history of malignant neoplasm of breast; Z88.2 Allergy status to sulfonamides; Z91.199 Patient's noncompliance with other medical treatment and regimen due to unspecified reason; Z88.0 Allergy status to penicillin; Z88.8 Allergy status to other drugs, medicaments and biological substances; Y92.89 Other specified places as the place of occurrence of the external cause
CPT/HCPCS: 80053; 80159; 85025; 87081; Q9967

== ENCOUNTER → 2022-08-28 | Outpatient (CLI) | payer MEDICARE, OTHER ==
[~2022-08-28] MED LIST changes: +ATOR40TA28 PO; +ATOR40TA71 PO; +CLOZ100T68 PO; +PANT-31 PO; -PARO-37 PO; +PARO10TA71 PO; +PARO10TA89 PO; +PROP20TA18 PO
[2022-08-28 15:40] LABS: BASOPHILS % (AUTO) 0.8 % (0.0-2.0); EOSINOPHILS % (AUTO) 2.5 % (1.0-6.0); HEMATOCRIT 39.7 % (41-53); HEMOGLOBIN 13.1 g/dL (13.5-17.5); LYMPHOCYTES # (AUTO) 1.4 K/uL (1.0-4.8); LYMPHOCYTES % (AUTO) 18.9 % (22.0-44.0); MEAN CORPUSCULAR HEMOGLOBIN 29.9 pg (26.0-34.0); MEAN CORPUSCULAR HGB CONC 33.1 G/dL (31.0-37.0); MEAN CORPUSCULAR VOLUME 90 fL (80-100); MONOCYTES # (AUTO) 0.4 K/uL (0.1-1.0); MONOCYTES % (AUTO) 5.2 % (2.0-9.0); NEUTROPHILS # (AUTO) 5.5 K/uL (1.8-7.7); NEUTROPHILS % (AUTO) 72.6 % (40.0-70.0); PLATELET COUNT (AUTO) 235 K/uL (150-450); RED CELL DISTRIBUTION WIDTH 14.3 % (11.5-14.5)
[2022-09-04 15:37] LABS: BASOPHILS % (AUTO) 1.1 % (0.0-2.0); EOSINOPHILS % (AUTO) 2.1 % (1.0-6.0); HEMATOCRIT 39.1 % (41-53); HEMOGLOBIN 13.1 g/dL (13.5-17.5); LYMPHOCYTES # (AUTO) 1.4 K/uL (1.0-4.8); LYMPHOCYTES % (AUTO) 16.1 % (22.0-44.0); MEAN CORPUSCULAR HEMOGLOBIN 30.3 pg (26.0-34.0); MEAN CORPUSCULAR HGB CONC 33.6 G/dL (31.0-37.0); MEAN CORPUSCULAR VOLUME 90 fL (80-100); MONOCYTES # (AUTO) 0.5 K/uL (0.1-1.0); MONOCYTES % (AUTO) 5.3 % (2.0-9.0); NEUTROPHILS # (AUTO) 6.8 K/uL (1.8-7.7); NEUTROPHILS % (AUTO) 75.4 % (40.0-70.0); PLATELET COUNT (AUTO) 240 K/uL (150-450); RED BLOOD CELL COUNT(AUTO) 4.33 MIL/uL (4.50-5.90); RED CELL DISTRIBUTION WIDTH 14.6 % (11.5-14.5)
== END | disposition home or self-care (01) ==
LOC: LABMN 11:33
PROVIDERS: ATTEND Psychiatry & Neurology Psychiatry
DX: F25.0 Schizoaffective disorder, bipolar type (principal)
CPT/HCPCS: 85025

== ENCOUNTER → 2022-09-18 | Outpatient (CLI) | payer MEDICARE, OTHER ==
[2022-09-18 15:59] LABS: BASOPHILS % (AUTO) 0.7 % (0.0-2.0); EOSINOPHILS % (AUTO) 1.2 % (1.0-6.0); HEMATOCRIT 38.8 % (41-53); HEMOGLOBIN 12.6 g/dL (13.5-17.5); LYMPHOCYTES # (AUTO) 1.7 K/uL (1.0-4.8); LYMPHOCYTES % (AUTO) 13.5 % (22.0-44.0); MEAN CORPUSCULAR HEMOGLOBIN 29.4 pg (26.0-34.0); MEAN CORPUSCULAR HGB CONC 32.5 G/dL (31.0-37.0); MEAN CORPUSCULAR VOLUME 90 fL (80-100); MONOCYTES # (AUTO) 0.6 K/uL (0.1-1.0); MONOCYTES % (AUTO) 4.7 % (2.0-9.0); NEUTROPHILS # (AUTO) 10.3 K/uL (1.8-7.7); NEUTROPHILS % (AUTO) 79.9 % (40.0-70.0); PLATELET COUNT (AUTO) 230 K/uL (150-450); RED BLOOD CELL COUNT(AUTO) 4.29 MIL/uL (4.50-5.90); RED CELL DISTRIBUTION WIDTH 14.3 % (11.5-14.5)
== END | disposition home or self-care (01) ==
LOC: LABMN 13:25
PROVIDERS: ATTEND Psychiatry & Neurology Psychiatry
DX: F25.0 Schizoaffective disorder, bipolar type (principal)
CPT/HCPCS: 85025

== ENCOUNTER → 2022-09-25 | Outpatient (CLI) | payer MEDICARE, OTHER ==
[2022-09-25 13:40] LABS: BASOPHILS % (AUTO) 0.6 % (0.0-2.0); EOSINOPHILS % (AUTO) 2.7 % (1.0-6.0); HEMOGLOBIN 13.3 g/dL (13.5-17.5); MEAN CORPUSCULAR HEMOGLOBIN 30.2 pg (26.0-34.0); MEAN CORPUSCULAR HGB CONC 33.2 G/dL (31.0-37.0); MEAN CORPUSCULAR VOLUME 91 fL (80-100); MONOCYTES # (AUTO) 0.7 K/uL (0.1-1.0); MONOCYTES % (AUTO) 8.3 % (2.0-9.0); NEUTROPHILS # (AUTO) 6.5 K/uL (1.8-7.7); NEUTROPHILS % (AUTO) 76.4 % (40.0-70.0); PLATELET COUNT (AUTO) 190 K/uL (150-450); RED BLOOD CELL COUNT(AUTO) 4.39 MIL/uL (4.50-5.90); RED CELL DISTRIBUTION WIDTH 14.6 % (11.5-14.5)
== END | disposition home or self-care (01) ==
LOC: LABMN 10:35
PROVIDERS: ATTEND Psychiatry & Neurology Psychiatry
DX: F25.0 Schizoaffective disorder, bipolar type (principal)
CPT/HCPCS: 85025

== ENCOUNTER → 2022-10-02 | Outpatient (CLI) | payer MEDICARE, OTHER ==
[2022-10-02 17:46] LABS: BASOPHILS % (AUTO) 0.8 % (0.0-2.0); EOSINOPHILS % (AUTO) 1.7 % (1.0-6.0); HEMATOCRIT 37.1 % (41-53); HEMOGLOBIN 12.3 g/dL (13.5-17.5); LYMPHOCYTES # (AUTO) 1.4 K/uL (1.0-4.8); MEAN CORPUSCULAR HEMOGLOBIN 30.3 pg (26.0-34.0); MEAN CORPUSCULAR HGB CONC 33.1 G/dL (31.0-37.0); MEAN CORPUSCULAR VOLUME 91 fL (80-100); MONOCYTES # (AUTO) 0.6 K/uL (0.1-1.0); NEUTROPHILS # (AUTO) 5.6 K/uL (1.8-7.7); NEUTROPHILS % (AUTO) 71.5 % (40.0-70.0); PLATELET COUNT (AUTO) 204 K/uL (150-450); RED BLOOD CELL COUNT(AUTO) 4.06 MIL/uL (4.50-5.90); RED CELL DISTRIBUTION WIDTH 14.7 % (11.5-14.5)
== END | disposition home or self-care (01) ==
LOC: LABMN 10:45
PROVIDERS: ATTEND Psychiatry & Neurology Psychiatry
DX: F25.0 Schizoaffective disorder, bipolar type (principal)
CPT/HCPCS: 85025

== ENCOUNTER → 2022-10-09 | Outpatient (CLI) | payer MEDICARE, OTHER ==
[2022-10-09 15:12] LABS: BASOPHILS % (AUTO) 0.5 % (0.0-2.0); EOSINOPHILS % (AUTO) 2.4 % (1.0-6.0); HEMOGLOBIN 12.5 g/dL (13.5-17.5); LYMPHOCYTES # (AUTO) 1.7 K/uL (1.0-4.8); LYMPHOCYTES % (AUTO) 18.3 % (22.0-44.0); MEAN CORPUSCULAR HEMOGLOBIN 29.8 pg (26.0-34.0); MEAN CORPUSCULAR VOLUME 90 fL (80-100); MONOCYTES # (AUTO) 0.7 K/uL (0.1-1.0); NEUTROPHILS # (AUTO) 6.8 K/uL (1.8-7.7); NEUTROPHILS % (AUTO) 71.8 % (40.0-70.0); PLATELET COUNT (AUTO) 245 K/uL (150-450); RED CELL DISTRIBUTION WIDTH 14.8 % (11.5-14.5)
== END | disposition home or self-care (01) ==
LOC: LABMN 14:04
PROVIDERS: ATTEND Psychiatry & Neurology Psychiatry
DX: F25.0 Schizoaffective disorder, bipolar type (principal)
CPT/HCPCS: 85025

== ENCOUNTER → 2022-10-16 | Outpatient (CLI) | payer MEDICARE, OTHER ==
[2022-10-16 15:33] LABS: BASOPHILS % (AUTO) 0.5 % (0.0-2.0); HEMATOCRIT 37.8 % (41-53); HEMOGLOBIN 12.5 g/dL (13.5-17.5); LYMPHOCYTES # (AUTO) 1.4 K/uL (1.0-4.8); LYMPHOCYTES % (AUTO) 16.8 % (22.0-44.0); MEAN CORPUSCULAR HEMOGLOBIN 29.7 pg (26.0-34.0); MEAN CORPUSCULAR VOLUME 90 fL (80-100); MONOCYTES # (AUTO) 0.6 K/uL (0.1-1.0); MONOCYTES % (AUTO) 7.5 % (2.0-9.0); NEUTROPHILS % (AUTO) 73.2 % (40.0-70.0); PLATELET COUNT (AUTO) 236 K/uL (150-450); RED BLOOD CELL COUNT(AUTO) 4.19 MIL/uL (4.50-5.90); RED CELL DISTRIBUTION WIDTH 14.7 % (11.5-14.5)
== END | disposition home or self-care (01) ==
LOC: LABMN 11:15
PROVIDERS: ATTEND Psychiatry & Neurology Psychiatry
DX: F25.0 Schizoaffective disorder, bipolar type (principal)
CPT/HCPCS: 85025

== ENCOUNTER → 2022-10-23 | Outpatient (CLI) | payer MEDICARE, OTHER ==
[2022-10-23 14:54] LABS: BASOPHILS % (AUTO) 0.3 % (0.0-2.0); EOSINOPHILS % (AUTO) 1.7 % (1.0-6.0); HEMATOCRIT 40.5 % (41-53); HEMOGLOBIN 13.2 g/dL (13.5-17.5); LYMPHOCYTES # (AUTO) 1.4 K/uL (1.0-4.8); LYMPHOCYTES % (AUTO) 15.3 % (22.0-44.0); MEAN CORPUSCULAR HEMOGLOBIN 29.4 pg (26.0-34.0); MEAN CORPUSCULAR HGB CONC 32.5 G/dL (31.0-37.0); MEAN CORPUSCULAR VOLUME 90 fL (80-100); MONOCYTES # (AUTO) 0.7 K/uL (0.1-1.0); MONOCYTES % (AUTO) 7.7 % (2.0-9.0); NEUTROPHILS # (AUTO) 6.8 K/uL (1.8-7.7); PLATELET COUNT (AUTO) 244 K/uL (150-450); RED BLOOD CELL COUNT(AUTO) 4.48 MIL/uL (4.50-5.90); RED CELL DISTRIBUTION WIDTH 14.7 % (11.5-14.5)
== END | disposition home or self-care (01) ==
LOC: LABMN 12:00
PROVIDERS: ATTEND Psychiatry & Neurology Psychiatry
DX: F25.0 Schizoaffective disorder, bipolar type (principal)
CPT/HCPCS: 85025

== ENCOUNTER → 2022-11-13 | Outpatient (CLI) | payer MEDICARE, OTHER ==
[2022-11-13 18:01] LABS: BASOPHILS % (AUTO) 0.8 % (0.0-2.0); EOSINOPHILS % (AUTO) 2.4 % (1.0-6.0); HEMATOCRIT 38.5 % (41-53); HEMOGLOBIN 12.8 g/dL (13.5-17.5); LYMPHOCYTES # (AUTO) 1.6 K/uL (1.0-4.8); LYMPHOCYTES % (AUTO) 16.3 % (22.0-44.0); MEAN CORPUSCULAR HGB CONC 33.3 G/dL (31.0-37.0); MEAN CORPUSCULAR VOLUME 90 fL (80-100); MONOCYTES # (AUTO) 0.7 K/uL (0.1-1.0); NEUTROPHILS # (AUTO) 7.2 K/uL (1.8-7.7); NEUTROPHILS % (AUTO) 73.5 % (40.0-70.0); PLATELET COUNT (AUTO) 225 K/uL (150-450); RED BLOOD CELL COUNT(AUTO) 4.27 MIL/uL (4.50-5.90); RED CELL DISTRIBUTION WIDTH 14.2 % (11.5-14.5)
== END | disposition home or self-care (01) ==
LOC: LABMN 11:11
PROVIDERS: ATTEND Psychiatry & Neurology Psychiatry
DX: F25.0 Schizoaffective disorder, bipolar type (principal)
CPT/HCPCS: 85025

== ENCOUNTER → 2022-11-20 | Outpatient (CLI) | payer MEDICARE, OTHER ==
[2022-11-20 15:48] LABS: BASOPHILS % (AUTO) 0.8 % (0.0-2.0); EOSINOPHILS % (AUTO) 2.3 % (1.0-6.0); HEMATOCRIT 40.8 % (41-53); HEMOGLOBIN 13.2 g/dL (13.5-17.5); LYMPHOCYTES # (AUTO) 1.4 K/uL (1.0-4.8); LYMPHOCYTES % (AUTO) 17.5 % (22.0-44.0); MEAN CORPUSCULAR HEMOGLOBIN 29.1 pg (26.0-34.0); MEAN CORPUSCULAR HGB CONC 32.5 G/dL (31.0-37.0); MEAN CORPUSCULAR VOLUME 89 fL (80-100); MONOCYTES # (AUTO) 0.6 K/uL (0.1-1.0); MONOCYTES % (AUTO) 7.2 % (2.0-9.0); NEUTROPHILS # (AUTO) 5.6 K/uL (1.8-7.7); NEUTROPHILS % (AUTO) 72.2 % (40.0-70.0); PLATELET COUNT (AUTO) 236 K/uL (150-450); RED BLOOD CELL COUNT(AUTO) 4.56 MIL/uL (4.50-5.90); RED CELL DISTRIBUTION WIDTH 14.1 % (11.5-14.5)
== END | disposition home or self-care (01) ==
LOC: LABMN 10:35
PROVIDERS: ATTEND Psychiatry & Neurology Psychiatry
DX: F25.1 Schizoaffective disorder, depressive type (principal)
CPT/HCPCS: 85025

== ENCOUNTER → 2022-11-27 | Outpatient (CLI) | payer MEDICARE, OTHER ==
[2022-11-27 15:21] LABS: BASOPHILS % (AUTO) 0.8 % (0.0-2.0); HEMATOCRIT 41.5 % (41-53); HEMOGLOBIN 13.8 g/dL (13.5-17.5); LYMPHOCYTES # (AUTO) 1.4 K/uL (1.0-4.8); LYMPHOCYTES % (AUTO) 15.8 % (22.0-44.0); MEAN CORPUSCULAR HEMOGLOBIN 29.7 pg (26.0-34.0); MEAN CORPUSCULAR HGB CONC 33.2 G/dL (31.0-37.0); MEAN CORPUSCULAR VOLUME 90 fL (80-100); MONOCYTES # (AUTO) 0.5 K/uL (0.1-1.0); MONOCYTES % (AUTO) 5.9 % (2.0-9.0); NEUTROPHILS # (AUTO) 6.7 K/uL (1.8-7.7); NEUTROPHILS % (AUTO) 75.5 % (40.0-70.0); PLATELET COUNT (AUTO) 229 K/uL (150-450); RED BLOOD CELL COUNT(AUTO) 4.64 MIL/uL (4.50-5.90); RED CELL DISTRIBUTION WIDTH 14.1 % (11.5-14.5)
[2022-12-04 14:45] LABS: BASOPHILS % (AUTO) 0.4 % (0.0-2.0); EOSINOPHILS % (AUTO) 1.9 % (1.0-6.0); HEMATOCRIT 38.8 % (41-53); HEMOGLOBIN 12.7 g/dL (13.5-17.5); LYMPHOCYTES # (AUTO) 1.3 K/uL (1.0-4.8); LYMPHOCYTES % (AUTO) 13.1 % (22.0-44.0); MEAN CORPUSCULAR HGB CONC 32.6 G/dL (31.0-37.0); MEAN CORPUSCULAR VOLUME 89 fL (80-100); MONOCYTES # (AUTO) 0.7 K/uL (0.1-1.0); MONOCYTES % (AUTO) 6.7 % (2.0-9.0); NEUTROPHILS # (AUTO) 7.9 K/uL (1.8-7.7); NEUTROPHILS % (AUTO) 77.9 % (40.0-70.0); PLATELET COUNT (AUTO) 239 K/uL (150-450); RED BLOOD CELL COUNT(AUTO) 4.36 MIL/uL (4.50-5.90); RED CELL DISTRIBUTION WIDTH 14.2 % (11.5-14.5)
== END | disposition home or self-care (01) ==
LOC: LABMN 11:30
PROVIDERS: ATTEND Psychiatry & Neurology Psychiatry
DX: I25.10 Atherosclerotic heart disease of native coronary artery without angina pectoris (principal)
CPT/HCPCS: 85025

== ENCOUNTER → 2022-12-04 | Outpatient (CLI) | payer MEDICARE, OTHER | END | disposition home or self-care (01) | LOC: LABMN 13:26 | PROVIDERS: ATTEND Psychiatry & Neurology Psychiatry | DX: F25.0 Schizoaffective disorder, bipolar type (principal) | CPT/HCPCS: 85025 ==

== ENCOUNTER → 2022-12-18 | Outpatient (CLI) | payer MEDICARE, OTHER ==
[2022-12-18 15:44] LABS: BASOPHILS % (AUTO) 1.6 % (0.0-2.0); EOSINOPHILS % (AUTO) 1.7 % (1.0-6.0); HEMATOCRIT 39.3 % (41-53); LYMPHOCYTES # (AUTO) 1.8 K/uL (1.0-4.8); LYMPHOCYTES % (AUTO) 16.3 % (22.0-44.0); MEAN CORPUSCULAR HEMOGLOBIN 29.7 pg (26.0-34.0); MEAN CORPUSCULAR VOLUME 90 fL (80-100); MONOCYTES # (AUTO) 0.7 K/uL (0.1-1.0); MONOCYTES % (AUTO) 6.1 % (2.0-9.0); NEUTROPHILS # (AUTO) 8.3 K/uL (1.8-7.7); NEUTROPHILS % (AUTO) 74.3 % (40.0-70.0); PLATELET COUNT (AUTO) 205 K/uL (150-450); RED BLOOD CELL COUNT(AUTO) 4.37 MIL/uL (4.50-5.90); RED CELL DISTRIBUTION WIDTH 14.6 % (11.5-14.5)
== END | disposition home or self-care (01) ==
LOC: LABMN 11:30
PROVIDERS: ATTEND Psychiatry & Neurology Psychiatry
DX: F25.1 Schizoaffective disorder, depressive type (principal)
CPT/HCPCS: 85025

== ENCOUNTER → 2023-01-01 | Outpatient (CLI) | payer MEDICARE, OTHER ==
[2023-01-01 15:19] LABS: BASOPHILS % (AUTO) 0.5 % (0.0-2.0); EOSINOPHILS % (AUTO) 2.4 % (1.0-6.0); HEMOGLOBIN 12.9 g/dL (13.5-17.5); LYMPHOCYTES # (AUTO) 1.7 K/uL (1.0-4.8); LYMPHOCYTES % (AUTO) 17.1 % (22.0-44.0); MEAN CORPUSCULAR HEMOGLOBIN 29.5 pg (26.0-34.0); MEAN CORPUSCULAR VOLUME 89 fL (80-100); MONOCYTES # (AUTO) 0.7 K/uL (0.1-1.0); MONOCYTES % (AUTO) 7.3 % (2.0-9.0); NEUTROPHILS # (AUTO) 7.2 K/uL (1.8-7.7); NEUTROPHILS % (AUTO) 72.7 % (40.0-70.0); PLATELET COUNT (AUTO) 230 K/uL (150-450); RED BLOOD CELL COUNT(AUTO) 4.36 MIL/uL (4.50-5.90); RED CELL DISTRIBUTION WIDTH 14.4 % (11.5-14.5); WHITE BLOOD COUNT (AUTO) 9.9 K/uL (4.5-11.0)
== END | disposition home or self-care (01) ==
LOC: LABMN 10:57
PROVIDERS: ATTEND Psychiatry & Neurology Psychiatry
DX: F25.1 Schizoaffective disorder, depressive type (principal)
CPT/HCPCS: 85025

== ENCOUNTER → 2023-01-15 | Outpatient (CLI) | payer MEDICARE, OTHER ==
[2023-01-15 15:25] LABS: BASOPHILS % (AUTO) 0.5 % (0.0-2.0); HEMATOCRIT 39.6 % (41-53); HEMOGLOBIN 13.3 g/dL (13.5-17.5); LYMPHOCYTES # (AUTO) 1.8 K/uL (1.0-4.8); LYMPHOCYTES % (AUTO) 23.1 % (22.0-44.0); MEAN CORPUSCULAR HGB CONC 33.5 G/dL (31.0-37.0); MEAN CORPUSCULAR VOLUME 90 fL (80-100); MONOCYTES # (AUTO) 0.6 K/uL (0.1-1.0); MONOCYTES % (AUTO) 7.2 % (2.0-9.0); NEUTROPHILS # (AUTO) 5.1 K/uL (1.8-7.7); NEUTROPHILS % (AUTO) 65.2 % (40.0-70.0); PLATELET COUNT (AUTO) 172 K/uL (150-450); RED BLOOD CELL COUNT(AUTO) 4.42 MIL/uL (4.50-5.90); RED CELL DISTRIBUTION WIDTH 14.7 % (11.5-14.5); WHITE BLOOD COUNT (AUTO) 7.9 K/uL (4.5-11.0)
== END | disposition home or self-care (01) ==
LOC: LABMN 12:30
PROVIDERS: ATTEND Psychiatry & Neurology Psychiatry
DX: F25.1 Schizoaffective disorder, depressive type (principal)
CPT/HCPCS: 85025

== ENCOUNTER → 2023-01-29 | Outpatient (CLI) | payer MEDICARE, OTHER ==
[2023-01-29 14:54] LABS: BASOPHILS % (AUTO) 0.6 % (0.0-2.0); EOSINOPHILS % (AUTO) 3.4 % (1.0-6.0); HEMATOCRIT 39.5 % (41-53); HEMOGLOBIN 13.2 g/dL (13.5-17.5); LYMPHOCYTES # (AUTO) 1.5 K/uL (1.0-4.8); LYMPHOCYTES % (AUTO) 21.2 % (22.0-44.0); MEAN CORPUSCULAR HEMOGLOBIN 29.8 pg (26.0-34.0); MEAN CORPUSCULAR HGB CONC 33.3 G/dL (31.0-37.0); MEAN CORPUSCULAR VOLUME 90 fL (80-100); MONOCYTES # (AUTO) 0.6 K/uL (0.1-1.0); MONOCYTES % (AUTO) 8.4 % (2.0-9.0); NEUTROPHILS # (AUTO) 4.7 K/uL (1.8-7.7); NEUTROPHILS % (AUTO) 66.4 % (40.0-70.0); PLATELET COUNT (AUTO) 224 K/uL (150-450); RED BLOOD CELL COUNT(AUTO) 4.41 MIL/uL (4.50-5.90); RED CELL DISTRIBUTION WIDTH 15.2 % (11.5-14.5); WHITE BLOOD COUNT (AUTO) 7.1 K/uL (4.5-11.0)
[2023-02-02 10:06] LABS: CLOZAPINE & NORCLOZAPINE 751 ng/mL; NORCLOZAPINE 220 ng/mL (Not Estab.)
== END | disposition home or self-care (01) ==
LOC: LABMN 13:09
PROVIDERS: ATTEND Psychiatry & Neurology Psychiatry
DX: F25.1 Schizoaffective disorder, depressive type (principal)
CPT/HCPCS: 80159; 85025

== ENCOUNTER → 2023-02-12 | Outpatient (CLI) | payer MEDICARE, OTHER ==
[2023-02-12 15:57] LABS: BASOPHILS % (AUTO) 0.5 % (0.0-2.0); EOSINOPHILS % (AUTO) 2.6 % (1.0-6.0); HEMATOCRIT 38.3 % (41-53); HEMOGLOBIN 12.8 g/dL (13.5-17.5); LYMPHOCYTES # (AUTO) 1.7 K/uL (1.0-4.8); LYMPHOCYTES % (AUTO) 19.8 % (22.0-44.0); MEAN CORPUSCULAR HEMOGLOBIN 29.9 pg (26.0-34.0); MEAN CORPUSCULAR HGB CONC 33.3 G/dL (31.0-37.0); MEAN CORPUSCULAR VOLUME 90 fL (80-100); MONOCYTES # (AUTO) 0.6 K/uL (0.1-1.0); MONOCYTES % (AUTO) 7.1 % (2.0-9.0); NEUTROPHILS # (AUTO) 6.1 K/uL (1.8-7.7); PLATELET COUNT (AUTO) 199 K/uL (150-450); RED BLOOD CELL COUNT(AUTO) 4.27 MIL/uL (4.50-5.90); RED CELL DISTRIBUTION WIDTH 15.3 % (11.5-14.5); WHITE BLOOD COUNT (AUTO) 8.7 K/uL (4.5-11.0)
== END | disposition home or self-care (01) ==
LOC: LABMN 11:35
PROVIDERS: ATTEND Psychiatry & Neurology Psychiatry
DX: F25.1 Schizoaffective disorder, depressive type (principal)
CPT/HCPCS: 85025

== ENCOUNTER → 2023-03-26 | Outpatient (CLI) | payer MEDICARE, OTHER ==
[2023-03-26 16:17] LABS: BASOPHILS % (AUTO) 1.2 % (0.0-2.0); EOSINOPHILS % (AUTO) 3.3 % (1.0-6.0); HEMATOCRIT 39.6 % (41-53); HEMOGLOBIN 13.2 g/dL (13.5-17.5); LYMPHOCYTES # (AUTO) 1.9 K/uL (1.0-4.8); LYMPHOCYTES % (AUTO) 21.9 % (22.0-44.0); MEAN CORPUSCULAR HGB CONC 33.4 G/dL (31.0-37.0); MEAN CORPUSCULAR VOLUME 90 fL (80-100); MONOCYTES # (AUTO) 0.5 K/uL (0.1-1.0); MONOCYTES % (AUTO) 5.9 % (2.0-9.0); NEUTROPHILS # (AUTO) 5.7 K/uL (1.8-7.7); NEUTROPHILS % (AUTO) 67.7 % (40.0-70.0); PLATELET COUNT (AUTO) 236 K/uL (150-450); RED BLOOD CELL COUNT(AUTO) 4.41 MIL/uL (4.50-5.90); RED CELL DISTRIBUTION WIDTH 14.7 % (11.5-14.5); WHITE BLOOD COUNT (AUTO) 8.5 K/uL (4.5-11.0)
== END | disposition home or self-care (01) ==
LOC: LABMN 11:36
PROVIDERS: ATTEND Psychiatry & Neurology Psychiatry
DX: F25.1 Schizoaffective disorder, depressive type (principal)
CPT/HCPCS: 85025

== ENCOUNTER → 2023-04-09 | Outpatient (CLI) | payer MEDICARE, OTHER ==
[2023-04-09 14:54] LABS: BASOPHILS % (AUTO) 0.7 % (0.0-2.0); EOSINOPHILS % (AUTO) 2.9 % (1.0-6.0); HEMATOCRIT 39.8 % (41-53); HEMOGLOBIN 13.3 g/dL (13.5-17.5); LYMPHOCYTES # (AUTO) 1.7 K/uL (1.0-4.8); LYMPHOCYTES % (AUTO) 23.8 % (22.0-44.0); MEAN CORPUSCULAR HEMOGLOBIN 30.3 pg (26.0-34.0); MEAN CORPUSCULAR HGB CONC 33.4 G/dL (31.0-37.0); MEAN CORPUSCULAR VOLUME 91 fL (80-100); MONOCYTES # (AUTO) 0.6 K/uL (0.1-1.0); MONOCYTES % (AUTO) 8.6 % (2.0-9.0); NEUTROPHILS # (AUTO) 4.7 K/uL (1.8-7.7); PLATELET COUNT (AUTO) 209 K/uL (150-450); RED BLOOD CELL COUNT(AUTO) 4.39 MIL/uL (4.50-5.90); RED CELL DISTRIBUTION WIDTH 14.6 % (11.5-14.5); WHITE BLOOD COUNT (AUTO) 7.3 K/uL (4.5-11.0)
== END | disposition home or self-care (01) ==
LOC: LABMN 12:48
PROVIDERS: ATTEND Psychiatry & Neurology Psychiatry
DX: F25.1 Schizoaffective disorder, depressive type (principal)
CPT/HCPCS: 85025

== ENCOUNTER → 2023-05-07 | Outpatient (CLI) | payer MEDICARE, OTHER ==
[2023-05-07 14:14] LABS: BASOPHILS % (AUTO) 0.8 % (0.0-2.0); EOSINOPHILS % (AUTO) 2.1 % (1.0-6.0); HEMATOCRIT 38.5 % (41-53); HEMOGLOBIN 13.2 g/dL (13.5-17.5); LYMPHOCYTES # (AUTO) 1.6 K/uL (1.0-4.8); LYMPHOCYTES % (AUTO) 19.2 % (22.0-44.0); MEAN CORPUSCULAR HEMOGLOBIN 30.6 pg (26.0-34.0); MEAN CORPUSCULAR HGB CONC 34.3 G/dL (31.0-37.0); MEAN CORPUSCULAR VOLUME 89 fL (80-100); MONOCYTES # (AUTO) 0.6 K/uL (0.1-1.0); MONOCYTES % (AUTO) 7.4 % (2.0-9.0); NEUTROPHILS % (AUTO) 70.5 % (40.0-70.0); PLATELET COUNT (AUTO) 220 K/uL (150-450); RED BLOOD CELL COUNT(AUTO) 4.31 MIL/uL (4.50-5.90); RED CELL DISTRIBUTION WIDTH 14.3 % (11.5-14.5); WHITE BLOOD COUNT (AUTO) 8.5 K/uL (4.5-11.0)
== END | disposition home or self-care (01) ==
LOC: LABMN 13:10
PROVIDERS: ATTEND Psychiatry & Neurology Psychiatry
DX: F25.1 Schizoaffective disorder, depressive type (principal)
CPT/HCPCS: 85025

== ENCOUNTER → 2023-05-21 | Outpatient (CLI) | payer MEDICARE, OTHER ==
[2023-05-21 15:46] LABS: EOSINOPHILS % (AUTO) 2.1 % (1.0-6.0); HEMATOCRIT 40.1 % (41-53); HEMOGLOBIN 13.2 g/dL (13.5-17.5); LYMPHOCYTES # (AUTO) 2.3 K/uL (1.0-4.8); LYMPHOCYTES % (AUTO) 27.7 % (22.0-44.0); MEAN CORPUSCULAR HEMOGLOBIN 29.4 pg (26.0-34.0); MEAN CORPUSCULAR HGB CONC 32.8 G/dL (31.0-37.0); MEAN CORPUSCULAR VOLUME 89 fL (80-100); MONOCYTES # (AUTO) 0.7 K/uL (0.1-1.0); MONOCYTES % (AUTO) 8.8 % (2.0-9.0); NEUTROPHILS # (AUTO) 5.1 K/uL (1.8-7.7); NEUTROPHILS % (AUTO) 60.4 % (40.0-70.0); PLATELET COUNT (AUTO) 240 K/uL (150-450); RED BLOOD CELL COUNT(AUTO) 4.49 MIL/uL (4.50-5.90); RED CELL DISTRIBUTION WIDTH 14.2 % (11.5-14.5); WHITE BLOOD COUNT (AUTO) 8.4 K/uL (4.5-11.0)
== END | disposition home or self-care (01) ==
LOC: LABMN 14:20
PROVIDERS: ATTEND Psychiatry & Neurology Psychiatry
DX: F25.1 Schizoaffective disorder, depressive type (principal)
CPT/HCPCS: 85025

== ENCOUNTER → 2023-06-08 | Outpatient (CLI) | payer MEDICARE, OTHER ==
[2023-06-08 15:46] LABS: BASOPHILS % (AUTO) 1.1 % (0.0-2.0); EOSINOPHILS % (AUTO) 2.3 % (1.0-6.0); HEMATOCRIT 40.9 % (41-53); HEMOGLOBIN 13.5 g/dL (13.5-17.5); LYMPHOCYTES # (AUTO) 1.8 K/uL (1.0-4.8); LYMPHOCYTES % (AUTO) 23.3 % (22.0-44.0); MEAN CORPUSCULAR HEMOGLOBIN 29.5 pg (26.0-34.0); MEAN CORPUSCULAR VOLUME 89 fL (80-100); MONOCYTES # (AUTO) 0.9 K/uL (0.1-1.0); MONOCYTES % (AUTO) 10.9 % (2.0-9.0); NEUTROPHILS # (AUTO) 4.9 K/uL (1.8-7.7); NEUTROPHILS % (AUTO) 62.4 % (40.0-70.0); PLATELET COUNT (AUTO) 206 K/uL (150-450); RED BLOOD CELL COUNT(AUTO) 4.58 MIL/uL (4.50-5.90); RED CELL DISTRIBUTION WIDTH 14.9 % (11.5-14.5); WHITE BLOOD COUNT (AUTO) 7.8 K/uL (4.5-11.0)
== END | disposition home or self-care (01) ==
LOC: LABMN 10:35
PROVIDERS: ATTEND Psychiatry & Neurology Psychiatry
DX: F25.1 Schizoaffective disorder, depressive type (principal)
CPT/HCPCS: 85025

== ENCOUNTER → 2023-06-17 | Outpatient (CLI) | payer MEDICARE, OTHER ==
[2023-06-17 15:10] LABS: BASOPHILS % (AUTO) 1.4 % (0.0-2.0); EOSINOPHILS % (AUTO) 1.9 % (1.0-6.0); HEMATOCRIT 39.2 % (41-53); HEMOGLOBIN 13.5 g/dL (13.5-17.5); LYMPHOCYTES # (AUTO) 1.9 K/uL (1.0-4.8); LYMPHOCYTES % (AUTO) 25.8 % (22.0-44.0); MEAN CORPUSCULAR HEMOGLOBIN 30.4 pg (26.0-34.0); MEAN CORPUSCULAR HGB CONC 34.5 G/dL (31.0-37.0); MEAN CORPUSCULAR VOLUME 88 fL (80-100); MONOCYTES # (AUTO) 0.7 K/uL (0.1-1.0); MONOCYTES % (AUTO) 10.2 % (2.0-9.0); NEUTROPHILS # (AUTO) 4.4 K/uL (1.8-7.7); NEUTROPHILS % (AUTO) 60.7 % (40.0-70.0); PLATELET COUNT (AUTO) 213 K/uL (150-450); RED BLOOD CELL COUNT(AUTO) 4.44 MIL/uL (4.50-5.90); RED CELL DISTRIBUTION WIDTH 14.6 % (11.5-14.5); WHITE BLOOD COUNT (AUTO) 7.3 K/uL (4.5-11.0)
== END | disposition home or self-care (01) ==
LOC: LABMN 11:30
PROVIDERS: ATTEND Psychiatry & Neurology Psychiatry
DX: F25.1 Schizoaffective disorder, depressive type (principal)
CPT/HCPCS: 80164; 85025

== ENCOUNTER → 2023-07-01 | Outpatient (CLI) | payer MEDICARE, OTHER ==
[2023-07-01 14:50] LABS: BASOPHILS % (AUTO) 0.9 % (0.0-2.0); EOSINOPHILS % (AUTO) 1.1 % (1.0-6.0); HEMOGLOBIN 13.8 g/dL (13.5-17.5); LYMPHOCYTES # (AUTO) 1.6 K/uL (1.0-4.8); LYMPHOCYTES % (AUTO) 16.1 % (22.0-44.0); MEAN CORPUSCULAR HEMOGLOBIN 29.9 pg (26.0-34.0); MEAN CORPUSCULAR HGB CONC 33.6 G/dL (31.0-37.0); MEAN CORPUSCULAR VOLUME 89 fL (80-100); MONOCYTES # (AUTO) 0.8 K/uL (0.1-1.0); MONOCYTES % (AUTO) 7.9 % (2.0-9.0); NEUTROPHILS # (AUTO) 7.6 K/uL (1.8-7.7); PLATELET COUNT (AUTO) 202 K/uL (150-450); RED BLOOD CELL COUNT(AUTO) 4.61 MIL/uL (4.50-5.90); RED CELL DISTRIBUTION WIDTH 14.6 % (11.5-14.5); WHITE BLOOD COUNT (AUTO) 10.2 K/uL (4.5-11.0)
== END | disposition home or self-care (01) ==
LOC: LABMN 13:18
PROVIDERS: ATTEND Psychiatry & Neurology Psychiatry
DX: F25.1 Schizoaffective disorder, depressive type (principal)
CPT/HCPCS: 85025

== ENCOUNTER → 2023-07-15 | Outpatient (CLI) | payer MEDICARE, OTHER ==
[2023-07-15 15:24] LABS: EOSINOPHILS % (AUTO) 1.9 % (1.0-6.0); HEMATOCRIT 40.1 % (41-53); HEMOGLOBIN 13.5 g/dL (13.5-17.5); LYMPHOCYTES # (AUTO) 1.7 K/uL (1.0-4.8); LYMPHOCYTES % (AUTO) 28.3 % (22.0-44.0); MEAN CORPUSCULAR HGB CONC 33.7 G/dL (31.0-37.0); MEAN CORPUSCULAR VOLUME 89 fL (80-100); MONOCYTES # (AUTO) 0.5 K/uL (0.1-1.0); MONOCYTES % (AUTO) 7.8 % (2.0-9.0); NEUTROPHILS # (AUTO) 3.7 K/uL (1.8-7.7); PLATELET COUNT (AUTO) 211 K/uL (150-450); RED CELL DISTRIBUTION WIDTH 14.9 % (11.5-14.5); WHITE BLOOD COUNT (AUTO) 6.1 K/uL (4.5-11.0)
== END | disposition home or self-care (01) ==
LOC: LABMN 10:35
PROVIDERS: ATTEND Psychiatry & Neurology Psychiatry
DX: F25.1 Schizoaffective disorder, depressive type (principal)
CPT/HCPCS: 85025

== ENCOUNTER → 2023-08-12 | Outpatient (CLI) | payer MEDICARE, OTHER ==
[~2023-08-12] MED LIST changes: +CLOZ100T12 PO; -CLOZ100T68 PO
[2023-08-12 14:22] LABS: BASOPHILS % (AUTO) 0.4 % (0.0-2.0); EOSINOPHILS % (AUTO) 0.9 % (1.0-6.0); HEMATOCRIT 37.8 % (41-53); HEMOGLOBIN 12.9 g/dL (13.5-17.5); LYMPHOCYTES # (AUTO) 1.8 K/uL (1.0-4.8); LYMPHOCYTES % (AUTO) 27.4 % (22.0-44.0); MEAN CORPUSCULAR HEMOGLOBIN 30.1 pg (26.0-34.0); MEAN CORPUSCULAR VOLUME 88 fL (80-100); MONOCYTES # (AUTO) 0.7 K/uL (0.1-1.0); MONOCYTES % (AUTO) 10.6 % (2.0-9.0); NEUTROPHILS % (AUTO) 60.7 % (40.0-70.0); PLATELET COUNT (AUTO) 204 K/uL (150-450); RED BLOOD CELL COUNT(AUTO) 4.28 MIL/uL (4.50-5.90); RED CELL DISTRIBUTION WIDTH 14.9 % (11.5-14.5); WHITE BLOOD COUNT (AUTO) 6.7 K/uL (4.5-11.0)
== END | disposition home or self-care (01) ==
LOC: LABMN 12:37
PROVIDERS: ATTEND Psychiatry & Neurology Psychiatry
DX: F25.1 Schizoaffective disorder, depressive type (principal)
CPT/HCPCS: 85025

== ENCOUNTER → 2023-08-26 | Outpatient (CLI) | payer MEDICARE, OTHER ==
[2023-08-26 15:27] LABS: BASOPHILS % (AUTO) 0.4 % (0.0-2.0); EOSINOPHILS % (AUTO) 0.4 % (1.0-6.0); HEMATOCRIT 40.3 % (41-53); HEMOGLOBIN 13.3 g/dL (13.5-17.5); LYMPHOCYTES # (AUTO) 1.8 K/uL (1.0-4.8); LYMPHOCYTES % (AUTO) 26.5 % (22.0-44.0); MEAN CORPUSCULAR HEMOGLOBIN 29.4 pg (26.0-34.0); MEAN CORPUSCULAR VOLUME 89 fL (80-100); MONOCYTES # (AUTO) 0.6 K/uL (0.1-1.0); NEUTROPHILS # (AUTO) 4.5 K/uL (1.8-7.7); NEUTROPHILS % (AUTO) 64.7 % (40.0-70.0); PLATELET COUNT (AUTO) 219 K/uL (150-450); RED BLOOD CELL COUNT(AUTO) 4.53 MIL/uL (4.50-5.90); RED CELL DISTRIBUTION WIDTH 14.9 % (11.5-14.5)
== END | disposition home or self-care (01) ==
LOC: LABMN 11:20
PROVIDERS: ATTEND Psychiatry & Neurology Psychiatry
DX: F25.1 Schizoaffective disorder, depressive type (principal)
CPT/HCPCS: 85025

== ENCOUNTER → 2023-09-23 | Outpatient (CLI) | payer MEDICARE, OTHER ==
[2023-09-23 16:06] LABS: BASOPHILS % (AUTO) 0.6 % (0.0-2.0); EOSINOPHILS % (AUTO) 0.2 % (1.0-6.0); HEMATOCRIT 40.6 % (41-53); HEMOGLOBIN 13.5 g/dL (13.5-17.5); LYMPHOCYTES # (AUTO) 1.9 K/uL (1.0-4.8); LYMPHOCYTES % (AUTO) 21.7 % (22.0-44.0); MEAN CORPUSCULAR HEMOGLOBIN 29.6 pg (26.0-34.0); MEAN CORPUSCULAR HGB CONC 33.3 G/dL (31.0-37.0); MEAN CORPUSCULAR VOLUME 89 fL (80-100); MONOCYTES # (AUTO) 0.7 K/uL (0.1-1.0); MONOCYTES % (AUTO) 7.6 % (2.0-9.0); NEUTROPHILS # (AUTO) 6.2 K/uL (1.8-7.7); NEUTROPHILS % (AUTO) 69.9 % (40.0-70.0); PLATELET COUNT (AUTO) 212 K/uL (150-450); RED BLOOD CELL COUNT(AUTO) 4.57 MIL/uL (4.50-5.90); RED CELL DISTRIBUTION WIDTH 14.8 % (11.5-14.5); WHITE BLOOD COUNT (AUTO) 8.9 K/uL (4.5-11.0)
== END | disposition home or self-care (01) ==
LOC: LABMN 13:49
PROVIDERS: ATTEND Psychiatry & Neurology Psychiatry
DX: F25.1 Schizoaffective disorder, depressive type (principal)
CPT/HCPCS: 85025

== ENCOUNTER → 2023-10-21 | Outpatient (CLI) | payer MEDICARE, OTHER ==
[2023-10-21 15:08] LABS: BASOPHILS % (AUTO) 0.5 % (0.0-2.0); EOSINOPHILS % (AUTO) 0.2 % (1.0-6.0); HEMATOCRIT 39.7 % (41-53); HEMOGLOBIN 13.3 g/dL (13.5-17.5); LYMPHOCYTES # (AUTO) 1.8 K/uL (1.0-4.8); LYMPHOCYTES % (AUTO) 26.4 % (22.0-44.0); MEAN CORPUSCULAR HEMOGLOBIN 29.8 pg (26.0-34.0); MEAN CORPUSCULAR HGB CONC 33.5 G/dL (31.0-37.0); MEAN CORPUSCULAR VOLUME 89 fL (80-100); MONOCYTES # (AUTO) 0.6 K/uL (0.1-1.0); MONOCYTES % (AUTO) 8.9 % (2.0-9.0); NEUTROPHILS # (AUTO) 4.4 K/uL (1.8-7.7); PLATELET COUNT (AUTO) 222 K/uL (150-450); RED BLOOD CELL COUNT(AUTO) 4.47 MIL/uL (4.50-5.90); RED CELL DISTRIBUTION WIDTH 14.9 % (11.5-14.5); WHITE BLOOD COUNT (AUTO) 6.9 K/uL (4.5-11.0)
== END | disposition home or self-care (01) ==
LOC: LABMN 10:30
PROVIDERS: ATTEND Psychiatry & Neurology Psychiatry
DX: F25.1 Schizoaffective disorder, depressive type (principal)
CPT/HCPCS: 85025

== ENCOUNTER → 2024-06-06 | Outpatient (CLI) | payer MEDICARE, OTHER ==
[2024-06-06 14:54] LABS: BASOPHILS % (AUTO) 0.8 % (0.0-2.0); EOSINOPHILS % (AUTO) 0.3 % (1.0-6.0); HEMATOCRIT 40.9 % (41-53); HEMOGLOBIN 13.6 g/dL (13.5-17.5); LYMPHOCYTES # (AUTO) 1.7 K/uL (1.0-4.8); LYMPHOCYTES % (AUTO) 26.4 % (22.0-44.0); MEAN CORPUSCULAR HEMOGLOBIN 29.7 pg (26.0-34.0); MEAN CORPUSCULAR HGB CONC 33.2 G/dL (31.0-37.0); MEAN CORPUSCULAR VOLUME 90 fL (80-100); MONOCYTES # (AUTO) 0.6 K/uL (0.1-1.0); MONOCYTES % (AUTO) 9.3 % (2.0-9.0); NEUTROPHILS # (AUTO) 4.1 K/uL (1.8-7.7); NEUTROPHILS % (AUTO) 63.2 % (40.0-70.0); PLATELET COUNT (AUTO) 201 K/uL (150-450); RED BLOOD CELL COUNT(AUTO) 4.57 MIL/uL (4.50-5.90); RED CELL DISTRIBUTION WIDTH 14.8 % (11.5-14.5); WHITE BLOOD COUNT (AUTO) 6.4 K/uL (4.5-11.0)
== END | disposition home or self-care (01) ==
LOC: LABMN 10:45
PROVIDERS: ATTEND Psychiatry & Neurology Psychiatry
DX: F25.1 Schizoaffective disorder, depressive type (principal)
CPT/HCPCS: 85025

== ENCOUNTER 2024-10-26 10:38 | Inpatient (IN) | payer MEDICARE, MEDICAID ==
[~2024-10-26] VITALS: Ht 177.8 cm; Wt 97.0 kg
[2024-10-26 10:47] VITALS: BP 101/70; PULSE 73; RESP 19; TEMP 96.7; O2SAT 98
[2024-10-26] MEDS ORDERED: GuaiFENesin/D-METHORPHAN [SUGAR-FREE] 200-20MG/10 ML SYRUP UDCUP PO PRN (11:15)
[2024-10-26] MEDS ORDERED: MELATONIN 5 MG TABLET PO PRN (11:15)
[2024-10-26] MEDS ORDERED: ZOLPIDEM TARTRATE 10 MG TABLET PO PRN (11:15)
[2024-10-26] MEDS ORDERED: ACETAMINOPHEN 325 MG TABLET PO PRN (11:15)
[2024-10-26] MEDS ORDERED: MAG HYDROX/ALUMINUM HYD/SIMETH ES 30 ML SUSPENSION UDCUP PO PRN (11:15)
[2024-10-26] MEDS ORDERED: GABAPENTIN 300 MG CAPSULE PO PRN (11:15)
[2024-10-26] MEDS ORDERED: LOPERAMIDE HCL 2 MG CAPSULE PO PRN (11:15)
[2024-10-26] MEDS ORDERED: PROMETHAZINE HCL 25 MG TABLET PO PRN (11:15)
[2024-10-26] MEDS ORDERED: MAGNESIUM HYDROXIDE SUSPENSION 30 ML UDCUP PO PRN (11:15)
[2024-10-26] MEDS ORDERED: OLANZapine 5 MG RAPDIS TABLET PO PRN (11:15)
[2024-10-26] MEDS: PROPRANOLOL HCL 10 MG TABLET PO SCH (13:43)
[2024-10-26 14:39] VITALS: BP 108/70; PULSE 67; RESP 17; TEMP 98.2; O2SAT 98
[2024-10-26 16:41] VITALS: BP 113/76; PULSE 65; RESP 18
[2024-10-26] MEDS: THIAMINE 100 MG TABLET PO SCH (16:43)
[2024-10-26] MEDS: TUBERCULIN, PURIFIED PROTEIN DERIVATIVE 5 TU/0.1 ML SYRINGE ID ONE (17:30)
[2024-10-26 20:01] VITALS: BP 104/70; PULSE 68; RESP 18; TEMP 97.7; O2SAT 100
[2024-10-26 21:00] VITALS: BP 115/74; PULSE 67; RESP 18
[2024-10-26] MEDS: DIVALPROEX SODIUM 250 MG ER TABLET PO SCH (21:08)
[2024-10-27 08:03] VITALS: BP 105/67; PULSE 60; RESP 17; TEMP 97.5; O2SAT 95
[2024-10-27] MEDS: MULTIVITAMINS WITH MINERALS, THERAPEUTIC TABLET PO SCH (08:36)
[2024-10-27] MEDS: NALTREXONE HCL 50 MG TABLET PO SCH (08:36)
[2024-10-27] MEDS: OMEGA-3/DHA/EPA/FISH OIL 1,000 MG CAPSULE PO SCH (08:36)
[2024-10-27] MEDS: FOLIC ACID 1 MG TABLET PO SCH (08:36)
[2024-10-27 09:13] LABS: PLATELET COUNT (AUTO) 209 K/uL (150-450); RED BLOOD CELL COUNT(AUTO) 4.59 MIL/uL (4.50-5.90); RED CELL DISTRIBUTION WIDTH 14.9 % (11.5-14.5); WHITE BLOOD COUNT (AUTO) 7.5 K/uL (4.5-11.0)
[2024-10-27 09:45] LABS: ASPARTATE AMINOTRANSFERASE 23 U/L (15-37); CALCIUM, TOTAL 9.0 mg/dL (8.8-10.5); CHOL/HDL RATIO 6.2 (4.2-7.3); CREATININE 1.03 mg/dL (0.60-1.30); GLOMERULAR FILTR. RATE CALC > 60 mL/min (>60); GLUCOSE,RANDOM 85 mg/dL (70-110); LDL CHOL (CALC.) 119 mg/dL (0-130); SODIUM SERUM 145 mmol/L (136-145); TOTAL PROTEIN, SERUM 6.3 g/dL (6.4-8.2); UREA NITROGEN, BLOOD 14 mg/dL (7-18); VALPROIC ACID 39 mcg/mL (50-100)
[2024-10-27 13:14] VITALS: BP 111/82; PULSE 75; RESP 16; O2SAT 99
[2024-10-27 16:55] VITALS: BP 107/76; PULSE 73; RESP 16; O2SAT 98
[2024-10-27 20:44] VITALS: BP 110/80; PULSE 74; RESP 18; TEMP 97.5; O2SAT 99
[2024-10-28 08:19] VITALS: BP 127/65; PULSE 66; RESP 17; TEMP 98.2; O2SAT 95
[2024-10-28 09:59] LABS: APPEARANCE,URINE CLEAR (CLEAR); GLUCOSE, URINE (UA) NEGATIVE (NEGATIVE); LEUKOCYTE ESTERASE ,URINE NEGATIVE (NEGATIVE); NITRATE,URINE NEGATIVE (NEGATIVE); OCCULT BLOOD,URINE NEGATIVE (NEGATIVE); SPECIFIC GRAVITIY, URINE 1.010 (1.003-1.030)
[2024-10-28] MEDS: DEUTETRABENAZINE 12 MG PO SCH (10:18)
[2024-10-28] MEDS: DEUTETRABENAZINE 6 MG PO SCH (10:18)
[2024-10-28 10:36] LABS: ALCOHOL, URINE DRUG SCREEN NEGATIVE (NEGATIVE); AMPHET/METH SCREEN,URINE NEGATIVE (NEGATIVE); BARBITURATE SCREEN, URINE NEGATIVE (NEGATIVE); CANNABINOID SCREEN,URINE NEGATIVE (NEGATIVE); COCAINE SCREEN,URINE NEGATIVE (NEGATIVE); METHADONE SCREEN, URINE NEGATIVE (NEGATIVE)
[2024-10-28 11:24] LABS: PH,URINE DRUG SCREEN 6.0 (5.0-8.0)
[2024-10-28 13:00] VITALS: BP 109/76; PULSE 79; RESP 16; O2SAT 98
[2024-10-28 20:11] VITALS: BP 115/79; PULSE 70; RESP 17; TEMP 97.8; O2SAT 99
[2024-10-28] MEDS: DIVALPROEX SODIUM 500 MG ER TABLET PO SCH (21:48)
[2024-10-29 08:31] VITALS: BP 115/82; PULSE 68; RESP 17; TEMP 97.5; O2SAT 100
[2024-10-29 16:34] VITALS: BP 115/73; PULSE 66; RESP 18
[2024-10-29 20:08] VITALS: BP 103/74; PULSE 73; RESP 18; TEMP 98.4; O2SAT 97
[2024-10-29 20:51] VITALS: BP 118/81; PULSE 64; RESP 18
[2024-10-30 08:14] VITALS: BP 103/63; PULSE 63; RESP 17; TEMP 98.5; O2SAT 98
[2024-10-30 12:20] VITALS: BP 112/77
[2024-10-30 16:18] VITALS: BP 118/76; PULSE 71; RESP 18; TEMP 98.6; O2SAT 99
[2024-10-30 20:16] VITALS: BP 121/80; PULSE 66; RESP 18; TEMP 98.2; O2SAT 97
[2024-10-31 08:29] VITALS: BP 103/72; PULSE 60; RESP 18; TEMP 97.7; O2SAT 97
[2024-10-31] MEDS: GABAPENTIN 400 MG CAPSULE PO PRN (15:05)
[2024-10-31] MEDS ORDERED: PROP10TA72 PO (16:15)
[2024-10-31] MEDS ORDERED: MELA5TAB40 PO (16:15)
[2024-10-31] MEDS ORDERED: CLOZ25TA52 PO (16:15)
[2024-10-31] MEDS ORDERED: OMEG100033 PO (16:15)
[2024-10-31] MEDS ORDERED: ROPI0.2535 PO (16:15)
[2024-10-31] MEDS ORDERED: DIVA-153 PO (16:15)
[2024-10-31] MEDS ORDERED: CLOZ100T61 PO (16:15)
[2024-10-31] MEDS ORDERED: NALT50TA33 PO (16:15)
[2024-10-31 20:02] VITALS: BP 112/78; PULSE 84; RESP 18; TEMP 97.5; O2SAT 98
[2024-11-01 08:19] VITALS: BP 115/66; PULSE 73; RESP 17; TEMP 98.2; O2SAT 96
[2024-11-01] MEDS: ATORVASTATIN CALCIUM 20 MG TABLET PO SCH (08:56)
[2024-11-01 10:16] LABS: GLUCOMETER DEV NAME(LOC) POC.BV; POC SARS-COV2 AG, FIA NEGATIVE (NEGATIVE)
[2024-11-01 12:07] LABS: CLOZAPINE & NORCLOZAPINE 991 ng/mL; NORCLOZAPINE 238 ng/mL (Not Estab.)
== END 2024-11-01 10:27 | disposition home or self-care (01) | DRG 885 ==
LOC: B2X 11:28
PROVIDERS: ADMIT Psychiatry & Neurology Psychiatry; ATTEND Psychiatry & Neurology Psychiatry
PROC: GZHZZZZ Group Psychotherapy (ICD-10-PCS; principal; 2024-10-26)
PROC: GZ58ZZZ Individual Psychotherapy, Cognitive-Behavioral (ICD-10-PCS; 2024-10-26)
PROC: GZ56ZZZ Individual Psychotherapy, Supportive (ICD-10-PCS; 2024-10-27)
DX: F25.0 Schizoaffective disorder, bipolar type (principal); R45.851 Suicidal ideations; F17.200 Nicotine dependence, unspecified, uncomplicated; E78.5 Hyperlipidemia, unspecified; F41.9 Anxiety disorder, unspecified; G25.81 Restless legs syndrome; Z20.822 Contact with and (suspected) exposure to COVID-19; J44.9 Chronic obstructive pulmonary disease, unspecified; N40.0 Benign prostatic hyperplasia without lower urinary tract symptoms; B19.20 Unspecified viral hepatitis C without hepatic coma; K21.9 Gastro-esophageal reflux disease without esophagitis; Z88.2 Allergy status to sulfonamides; Z88.3 Allergy status to other anti-infective agents; Z91.148 Patient's other noncompliance with medication regimen for other reason; Z88.8 Allergy status to other drugs, medicaments and biological substances
CPT/HCPCS: 71046; 80053; 80061; 80159; 80164; 80307; 81003; 83036; 84439; 84443; 85025; 86592; 36415-L1; 36415-TC